=== PATIENT | female | born 1935 | race Caucasian/White ===

== ENCOUNTER → 2016-09-05 | Outpatient (CLI) | payer OTHER ==
[2016-09-05 12:36] LABS: HEMATOCRIT 41.1 % (37-47); MEAN CELL VOLUME 93.2 fL (80-100); MEAN CORPUSCULAR HEMOGLOBIN 31.5 pg (25-34); MEAN CORPUSCULAR HGB CONC 33.8 g/dl (32-36); MEAN PLATELET VOLUME 11.3 fL (7.4-10.4); PLATELET COUNT 219 K/uL (130-400); RED BLOOD COUNT 4.41 M/uL (4.2-5.4); WHITE BLOOD COUNT 5.03 K/uL (4.8-10.8)
[2016-09-05 12:46] LABS: ALT/SGPT 20 U/L (12-78); BLOOD UREA NITROGEN 15 mg/dl (7-18); BUN/CREATININE RATIO 20.3 (10-20); CALCIUM 9.3 mg/dl (8.5-10.1); CARBON DIOXIDE 25 mmol/L (21-32); CHLORIDE 107 mmol/L (98-107); CHOLESTEROL 192 mg/dl (0-200); CREATININE 0.74 mg/dl (0.60-1.20); GLUCOSE 126 mg/dl (70-99); SODIUM 144 mmol/L (136-145)
[2016-09-05 12:56] LABS: ALKALINE PHOSPHATASE 56 U/L (45-117); AST/SGOT 19 U/L (15-37); CHOLESTEROL/HDL RATIO 2.8; HDL CHOLESTEROL 69 mg/dl; LDL CHOLESTEROL CALCULATED 87 mg/dl; TRIGLYCERIDES 181 mg/dl (0-150); VERY LOW DENSITY LIPOPROT CALC 36 mg/dl
[2016-09-05 12:57] LABS: ESTIMATED AVERAGE GLUCOSE 151 mg/dl; HA1C FLAG Normal (Normal)
[2016-09-05 18:13] LABS: RATIO 56.6 mcg/mg (0-30.0)
== END | disposition home or self-care (01) ==
LOC: C.LABBFT 08:56
PROVIDERS: ATTEND Internal Medicine
DX: E11.29 Type 2 diabetes mellitus with other diabetic kidney complication (principal)

== ENCOUNTER → 2016-12-31 | Outpatient (CLI) | payer OTHER ==
--- NOTE | 2016-12-31 16:40 | MAMMOGRAPHY REPORT ---
BILATERAL DIGITAL SCREENING MAMMOGRAM WITH CAD: 12/31/2016 TECHNIQUE: Current study was also evaluated with a Computer Aided Detection (CAD) system. Bilateral CC and MLO views were obtained. COMPARISON: Comparison is made to exams dated: 12/31/2015 mammogram, 12/26/2013 mammogram, 12/23/2012 isaias mogram, 12/23/2011 mammogram, 12/19/2010 mammogram, and 12/27/2014 mammogram - [facility]. BREAST COMPOSITION: There are scattered areas of fibroglandular density in both breasts. FINDINGS: No suspicious masses, calcifications, or areas of architectural distortion are noted in ei ther breast. There has been no significant interval change compared to prior exams. Small nodular as ymmetry in the right superior breast on the MLO view is stable compared to prior exams including the December 2014 exam as well as the 2010 exam, and considered benign given long-term stability. IMPRESSION: ACR BI-RADS CATEGORY 2: BENIGN There is no mammographic evidence of malignancy. A 1 year screening mammogram is recommended. The pa tient will receive written notification of the results. Approximately 10% of breast cancers are not detected with mammography. A negative mammographic report should not delay biopsy if a clinically suggestive mass is present. Yuliana Tripathi M.D. /:12/31/2016 16:15:54 Pilot Plant Technician: Keely FAITH)(Kenneth), [facility] letter sent: Normal 1/2 BI-RADS Code: ACR BI-RADS Category 2: Benign
== END | disposition home or self-care (01) ==
LOC: C.MAMM 11:00
PROVIDERS: ATTEND Internal Medicine
DX: Z12.31 Encounter for screening mammogram for malignant neoplasm of breast (principal)

== ENCOUNTER → 2017-03-10 | Outpatient (CLI) | payer OTHER ==
[2017-03-10 12:53] LABS: ESTIMATED AVERAGE GLUCOSE 157 mg/dl; HA1C FLAG Normal (Normal)
[2017-03-10 12:54] LABS: ALKALINE PHOSPHATASE 51 U/L (45-117); ALT/SGPT 29 U/L (12-78); AST/SGOT 24 U/L (15-37); BLOOD UREA NITROGEN 22 mg/dl (7-18); CALCIUM 9.6 mg/dl (8.5-10.1); CARBON DIOXIDE 27 mmol/L (21-32); CHLORIDE 108 mmol/L (98-107); CREATININE 0.85 mg/dl (0.60-1.20); GLUCOSE 177 mg/dl (70-99); POTASSIUM 3.6 mmol/L (3.5-5.1); SODIUM 143 mmol/L (136-145)
== END | disposition home or self-care (01) ==
LOC: C.LABBFT 07:56
PROVIDERS: ATTEND Internal Medicine
DX: E11.9 Type 2 diabetes mellitus without complications (principal); I10 Essential (primary) hypertension; E78.00 Pure hypercholesterolemia, unspecified

== ENCOUNTER → 2017-09-07 | Outpatient (CLI) | payer OTHER ==
[2017-09-07 13:48] LABS: ALBUMIN 3.6 gm/dl (3.4-5.0); ALT/SGPT 21 U/L (12-78); AST/SGOT 15 U/L (15-37); BLOOD UREA NITROGEN 21 mg/dl (7-18); CALCIUM 9.4 mg/dl (8.5-10.1); CARBON DIOXIDE 27 mmol/L (21-32); CREATININE 0.83 mg/dl (0.60-1.20); GLUCOSE 166 mg/dl (70-99); POTASSIUM 3.6 mmol/L (3.5-5.1); SODIUM 142 mmol/L (136-145)
[2017-09-07 13:59] LABS: ALKALINE PHOSPHATASE 51 U/L (45-117); CHOLESTEROL 201 mg/dl (0-200); LDL CHOLESTEROL CALCULATED 103 mg/dl; TOTAL PROTEIN 7.6 gm/dl (6.4-8.2)
== END | disposition home or self-care (01) ==
LOC: C.LABBFT 08:53
PROVIDERS: ATTEND Internal Medicine
DX: E11.29 Type 2 diabetes mellitus with other diabetic kidney complication (principal)

== ENCOUNTER → 2018-03-03 | Outpatient (CLI) | payer OTHER ==
[2018-03-03 12:46] LABS: BASO % 0.2 %; BASO ABS # 0.01 K/uL (0-0.2); EOS ABS # 0.11 K/uL (0-0.5); HEMATOCRIT 43.3 % (37-47); HEMOGLOBIN 14.2 g/dL (12.0-16.0); IG# 0.01 K/uL (0.00-0.02); LYMPH % 39.7 %; LYMPH ABS # 2.14 K/uL (1.2-3.4); MEAN CELL VOLUME 96.7 fL (80-100); MEAN CORPUSCULAR HEMOGLOBIN 31.7 pg (25-34); MEAN CORPUSCULAR HGB CONC 32.8 g/dl (32-36); MEAN PLATELET VOLUME 11.5 fL (7.4-10.4); MONO % 6.9 %; MONO ABS # 0.37 K/uL (0.11-0.59); NEUT ABS # 2.75 K/uL (1.4-6.5); PLATELET COUNT 229 K/uL (130-400); RED CELL DISTRIBUTION WIDTH CV 12.5 % (11.5-14.5); RED CELL DISTRIBUTION WIDTH SD 43.7 fL (36.4-46.3); WHITE BLOOD COUNT 5.39 K/uL (4.8-10.8)
[2018-03-03 12:59] LABS: HEMOGLOBIN A1C 7.3 % (4.5-5.6)
[2018-03-03 13:21] LABS: ALBUMIN 3.6 gm/dl (3.4-5.0); ALKALINE PHOSPHATASE 49 U/L (45-117); ALT/SGPT 26 U/L (12-78); AST/SGOT 23 U/L (15-37); BLOOD UREA NITROGEN 21 mg/dl (7-18); CALCIUM 9.4 mg/dl (8.5-10.1); CARBON DIOXIDE 27 mmol/L (21-32); CHOLESTEROL 202 mg/dl (0-200); CREATININE 0.82 mg/dl (0.60-1.20); GLUCOSE 162 mg/dl (70-99); LDL CHOLESTEROL CALCULATED 102 mg/dl; POTASSIUM 3.9 mmol/L (3.5-5.1); SODIUM 140 mmol/L (136-145); TOTAL PROTEIN 7.6 gm/dl (6.4-8.2)
== END | disposition home or self-care (01) ==
LOC: C.LABBFT 09:00
PROVIDERS: ATTEND Internal Medicine
DX: E11.29 Type 2 diabetes mellitus with other diabetic kidney complication (principal)

== ENCOUNTER 2019-04-21 11:23 | Inpatient (IN) ==
[2019-04-21] MEDS ORDERED: FUROSEMIDE 40 MG/4 ML VIAL IV STA (12:01)
[2019-04-21 12:04] LABS: Basophils # (auto) 0.03 K/uL (0-0.2); Basophils % (auto) 0.4 %; Eosinophils # (auto) 0.06 K/uL (0-0.5); Eosinophils % (auto) 0.9 %; Hematocrit (blood only) 39.8 % (37-47); Immature Granulocytes # (auto) 0.01 K/uL (0.00-0.02); Immature Granulocytes % (auto) 0.1 %; Lymphocytes % (auto) 23.5 %; Mean Corpuscular Hemoglobin 31.7 pg (25-34); Mean Corpuscular Hgb Conc 32.7 g/dL (32-36); Mean Corpuscular Volume 97.1 fL (80-100); Mean Platelet Volume 11.2 fL (7.4-10.4); Monocytes # (auto) 0.41 K/uL (0.11-0.59); Neutrophils % (auto) 69.1 %; Platelet Count 236 K/uL (130-400); RDW Coefficient of Variation 12.6 % (11.5-14.5); RDW Standard Deviation 44.4 fL (36.4-46.3); White Blood Count 6.81 K/uL (4.8-10.8)
[2019-04-21 12:17] LABS: Alanine Aminotransferase 21 U/L (12-78); Albumin Level 4.1 gm/dl (3.4-5.0); Aspartate Aminotransferase 15 U/L (15-37); BUN Creatinine Ratio 23.9 (10-20); Blood Urea Nitrogen 23 mg/dl (7-18); Calcium 10.2 mg/dl (8.5-10.1); Carbon Dioxide 23 mmol/L (21-32); Chloride 107 mmol/L (98-107); Est GFR (African American) 64.3; Est GFR (Non-African American) 55.5; Glucose 138 mg/dl (70-99); Lipase 94 U/L (73-393); Potassium 3.9 mmol/L (3.5-5.1); Sodium 141 mmol/L (136-145)
[2019-04-21 12:18] LABS: Partial Thromboplastin Ratio 0.8; Prothrombin Time 10.3 Seconds (9.0-12.0)
--- NOTE | 2019-04-21 12:18 | XRay Report ---
XR chest 1V portable HISTORY: Atypical Chest Pain COMPARISON: Chest 03/23/2019. FINDINGS: There are low lung volumes. The heart remains enlarged. There is a moderate to large hiatus hernia, unchanged. Interval progression of the interstitial and vascular thickening as well as the s mall bilateral pleural effusions. This likely represents pulmonary edema. Left basilar linear densiti es persist and favor atelectasis. IMPRESSION: Interval progression of the pulmonary edema and small bilateral pleural effusions. Electronically signed by: Bashir Wilburn M.D. 04/21/2019 12:16 PM
[2019-04-21] MEDS ORDERED: Heparin IV Standard *NO* Bolus IV ONE (12:20)
[2019-04-21 12:22] LABS: Albumin Globulin Ratio 1.1 (0.9-2); Alkaline Phosphatase 53 U/L (45-117); Bilirubin,Total 0.7 mg/dl (0.2-1); Creatine Kinase 78 U/L (26-192); Creatine Kinase MB 2.1 ng/ml (0.5-3.6); Globulin 3.8 gm/dl (2.5-4.0); NT Pro B Type Natriuretic Pept 4698 pg/ml (0-1800); Total Protein 7.9 gm/dl (6.4-8.2); Troponin I < 0.015 ng/ml (0-0.045)
[2019-04-21] MEDS ORDERED: HEPARIN SODIUM/DEXTROSE 25,000 UNITS/500 ML BAG IV SCH (12:30)
--- NOTE | 2019-04-21 13:52 | History & Physical Report ---
Date of Service April 21, 2019 Assessment & Plan (1) Left ventricular thrombus: Patient has left ventricular thrombus found on the echocardiogram with Dr. Ross geography professor.Prelim echo findings remarkable for global LV dysfunction, EF 20 to 25%, apical LV thrombus, mild to moderate MR, mild RV dysfunction. Per his recommendation patient is admitted to inpatient for anticoagulation and the urinalysis. Heparin bolus and drip were started in the emergency room. Switching patient to Xarelto 15 mg p.o. twice daily for 21 days and then continue 20 mg p.o. daily Repeat TTE in 3 months Follow-up with Dr. Ross Started Lasix 40 mg IV twice daily Monitor closely electrolytes such as BMP We will check for Lyme, TSH and iron studies Potassium started 40 mEq p.o. daily titrate up as needed. Present on Admission?: Yes (2) Acute exacerbation of congestive heart failure: Monitor daily in and out Daily weight Letter closely electrolytes and blood pressure. Present on Admission?: Yes (3) Pulmonary edema: See above Present on Admission?: Yes (4) Diabetes mellitus type 2, uncontrolled: Hold metformin while patient hospitalized to prevent acute kidney injury due to possible medical procedures and hypoglycemia. Rather use sliding scale insulin Accu-Cheks before meals and at bedtime. Glycemia controlled by pharmacy. Present on Admission?: Yes (5) Hypercholesterolemia: Lipid panel pending, continue lovastatin 20 mg p.o. daily for now until fasting lipid panel results available. Present on Admission?: Yes (6) Hypertension: Continue monitoring, patient blood pressure is well controlled at this time Present on Admission?: Yes (7) Thrush of mouth and esophagus: Started nystatin swish and spit 4 times a day. Patient advised to use soft brush to clean her tongue after each meal. Patient also appears to be malnourished which is contributing to her immunocompromised state. Patient said that she was on antibiotics antibiotics for several months which could also be contributory factor. Nutrition consult placed for assessment of nutrition. Present on Admission?: Yes (8) Diarrhea: Patient reports several bowel movements last night which were yellow in color and very lose. Given only 40 mg of Lasix IV today since patient had some losses due to diarrhea. Continue monitoring patient hydration while on Lasix to prevent hypotension and dehydration. Stool cultures pending for C. difficile, ova parasites. Present on Admission?: Yes History of Present Illness Chief Complaint: Pulmonary edema, generalized malaise and left ventricular thrombus Primary Care Provider: Nixon Ordoñez MD Patient is a 83 years old female with past medical history of hypertension, hypercholesterolemia, type 2 diabetes mellitus, panic disorder without agoraphobia, esophageal reflux, who was sent to the emergency room by Dr. Conner Ross geography professor with a request to evaluate the patient for with newly diagnosed severe LVH dysfunction and acute systolic heart failure. Presently patient has left ventricle thrombus, pulmonary edema and to start Lasix 40 mg IV twice daily,, metoprolol XL 25 mg daily, lisinopril 5 mg daily, started heparin drip in the emergency room and will bridge to Xarelto for LV thrombus with a plan to repeat echocardiogram in 3 months. Patient will eventually need left and right heart catheterization to rule out ischemia because of cardiomyopathy but also could be done once when patient is euvolemic at this hospitalization. We will check a BMP, thyroid, Lyme and iron studies. Appreciate Dr. Ross's recommendations patient reports and why NYHA class III and IV symptoms such as dyspnea presyncope with minimal exertion. Labs are reviewed: Which shows WBC 6.81, hemoglobin 13, hematocrit 39.8, platelets 236, PT 10.3, INR 1, APTT 23, sodium 141, potassium 3.9, chloride 107, BUN 23, creatinine 0.96, GFR 55.5,Calcium 10.2, AST 15, ALT 21, BNP 4698. Chest x-ray significant for pulmonary edema with small bilateral pleural effusions. Was made to admit patient to PCU on telemetry to for the urinalysis for pulmonary edema and for anticoagulation. Allergies Allergy/AdvReac Type Severity Reaction Status Date / Time Azo-Gantrisin TABS Allergy Unknown Unknown Uncoded 04/21/19 12:58 Dust Mite Allergy Unknown Unknown Uncoded 04/21/19 12:58 Statins Allergy Unknown Unknown Uncoded 04/21/19 12:58 Sulfa Drugs Allergy Unknown Unknown Uncoded 04/21/19 12:58 Home Medications Home Medications Medication Instructions Recorded Confirmed Type lovastatin 20 mg PO DAILY 04/21/19 04/21/19 History metformin 1,000 mg PO QPM 04/21/19 04/21/19 History metformin 500 mg PO QAM 04/21/19 04/21/19 History potassium chloride 10 meq PO BID 04/21/19 04/21/19 History triamterene-hydrochlorothiazid 1 cap PO DAILY 04/21/19 04/21/19 History Past Med/Surg History Medical History Anxiety (Acute) Arthralgia of multiple sites (Acute) Chronic sinusitis (Acute) Diabetes mellitus type 2, uncontrolled (Acute) Diabetes mellitus with albuminuria (Acute) Esophageal reflux (Acute) Hematuria (Acute) Hypercholesterolemia (Acute) Hypertension (Acute) Low back pain (Acute) Microalbuminuria (Acute) Onychomycosis of toenail (Acute) Pain in thoracic spine (Acute) Panic disorder without agoraphobia (Acute) Cough (Acute) Hypertension (Chronic) Hypercholesteremia (Chronic) 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) Family History Other Family history non-contributory Social History Preferred Language: Serbian Communication Ability: Effective Nightman Required: No Beliefs That Will Affect Care: Adventism Adventism Beliefs: Restorationist Current Living Situation: Alone Other Information That Helps Us Care for You: No Feels Safe at Home: Yes Safety Concerns: Feels Safe At This Time Smoking Status: Never smoker Hx Alcohol Use: No Hx Substance Use: No Review of Systems Review of Systems: All systems reviewed & are unremarkable except as noted in HPI & below Physical Exam Constitutional: WD/WN, vitals as above + ill appearing and + frail appearing Eyes: PERRL, conjunctivae normal, anicteric sclerae ENMT: external ear and nose normal, oropharynx normal Neck: trachea midline, no thyromegaly Respiratory: normal respiratory effort, lungs clear to auscultation Cardiovascular: RRR, no murmur, no edema Gastrointestinal (Abdomen): normal bowel sounds, soft, nontender, no hepatosplenomegaly Musculoskeletal: no cyanosis or clubbing, extremities motor strength 5/5 Skin: no rashes, warm and dry Neurologic: patellar DTR's 2+ bilat, sensation intact Lymphatic: no cervical or axillary lymphadenopathy Results & Data Vital Signs (Past 12 Hours) Vital Signs Temp Pulse Pulse Resp BP BP Pulse Ox 04/21/19 12:08 105 H 16 122/88 93 04/21/19 12:01 92 04/21/19 11:31 36.7 C 89 22 128/70 97 Code Status & VTE Plan Code Status Full code VTE Prophylaxis Plan VTE Prophylaxis will be ordered: Yes PG Care Time/CCT Total # of Minutes Spent Total Time Spent with Patient: Total time spent is greater than 50% in coordination of care (as documented) at patient's floor/unit and/or counseling patient:
[2019-04-21] MEDS ORDERED: ONDANSETRON INJ 2 MG/ML 2 ML VIAL IV PRN (15:13)
[2019-04-21] MEDS ORDERED: ZOLPIDEM TARTRATE 5 MG TAB PO PRN (15:13)
[2019-04-21] MEDS ORDERED: POLYETHYLENE (MIRALAX) 17 GM PACK PO PRN (15:13)
[2019-04-21] MEDS ORDERED: ALUMINUM/MAGNESIUM SUSP 30 ML UDC PO PRN (15:13)
[2019-04-21] MEDS ORDERED: MAGNESIUM HYDROXIDE SUSP 30 ML UDC PO PRN (15:13)
[2019-04-21] MEDS ORDERED: ACETAMINOPHEN 325 MG TAB PO PRN (15:13)
[2019-04-21] MEDS ORDERED: PHARMACY GLYCEMIC MGMT CONSULT PRN (15:32)
[2019-04-21] MEDS ORDERED: DEXTROSE 50% 50 ML SYRINGE IV PRN (16:00)
[2019-04-21] MEDS ORDERED: GLUCOSE 10 TABS/TUBE PO PRN (16:00)
[2019-04-21] MEDS ORDERED: GLUCOSE 40% GEL 15 GM TUBE PO PRN (16:00)
[2019-04-21] MEDS ORDERED: GLUCAGON FOR INJ 1 MG VIAL SQ PRN (16:00)
[2019-04-21] MEDS ORDERED: CARBOHYDRATES FOR HYPOGLYCEMIA PO PRN (16:00)
[2019-04-21 16:02] LABS: BUN Creatinine Ratio 23.7 (10-20); Calcium 10.1 mg/dl (8.5-10.1); Creatinine Clr Calc Pharmacy 45.2 ml/min; Est GFR (African American) 67.7; Est GFR (Non-African American) 58.4; Potassium 3.7 mmol/L (3.5-5.1)
[2019-04-21 16:13] LABS: Thyroid Stimulating Hormone 2.64 uIu/ml (0.300-4.500)
[2019-04-21] MEDS: RIVAROXABAN 15 MG TAB PO SCH (16:14)
[2019-04-21] MEDS: lisinopriL 5 MG TAB PO SCH (16:15)
[2019-04-21] MEDS: NYSTATIN SUSP 500,000 U/5 ML UDC PO SCH ×2 (16:16→20:17)
[2019-04-21] MEDS: FUROSEMIDE 40 MG in SYRINGE 0 ML IV SCH (16:16)
[2019-04-21] MEDS: METOPROLOL SUCC 25MG EXT REL TAB PO SCH (16:16)
[2019-04-21 17:07] LABS: Lyme Ab IgG w/WB Rflx Negative (Negative); Lyme Ab IgM w/WB Rflx Negative (Negative)
[2019-04-21] MEDS: INSULIN ASPART 100 UNITS/ML 3 ML PEN SC SCH ×2 (17:32→21:09)
[2019-04-21] MEDS ORDERED: OXYCODONE/ACETAMINOPHEN 5mg/325mg TAB PO PRN (17:33)
[2019-04-21] MEDS ORDERED: INFLUENZA ADMINISTRATION CHARGE ONE (18:15)
[2019-04-21] MEDS ORDERED: INFLUENZA VACCINE HIGH DOSE 65+ 0.5 ML SYR IM ONE (18:15)
[2019-04-22] MEDS: RIVAROXABAN 15 MG TAB PO SCH ×2 (05:54→21:28)
[2019-04-22 07:20] LABS: Basophils # (auto) 0.02 K/uL (0-0.2); Basophils % (auto) 0.3 %; Eosinophils # (auto) 0.18 K/uL (0-0.5); Eosinophils % (auto) 3.1 %; Hematocrit (blood only) 36.3 % (37-47); Hemoglobin 11.8 g/dL (12.0-16.0); Lymphocytes # (auto) 1.32 K/uL (1.2-3.4); Lymphocytes % (auto) 22.5 %; Mean Corpuscular Hemoglobin 31.2 pg (25-34); Mean Corpuscular Hgb Conc 32.5 g/dL (32-36); Mean Platelet Volume 11.1 fL (7.4-10.4); Monocytes # (auto) 0.52 K/uL (0.11-0.59); Monocytes % (auto) 8.9 %; Neutrophils # (auto) 3.83 K/uL (1.4-6.5); Neutrophils % (auto) 65.2 %; Platelet Count 210 K/uL (130-400); RDW Coefficient of Variation 12.6 % (11.5-14.5); Red Blood Count 3.78 M/uL (4.2-5.4); Reticulocyte % 1.5 % (0.5-2.0); Reticulocytes # 0.06 10^6/uL (0.02-0.10); White Blood Count 5.87 K/uL (4.8-10.8)
[2019-04-22 07:30] LABS: INR 1.2 (0.9-1.1); Partial Thromboplastin Time 26.9 Seconds (21.0-31.0); Prothrombin Time 11.9 Seconds (9.0-12.0)
[2019-04-22 07:46] LABS: Albumin Globulin Ratio 1.1 (0.9-2); Albumin Level 3.6 gm/dl (3.4-5.0); BUN Creatinine Ratio 21.7 (10-20); Calcium 9.6 mg/dl (8.5-10.1); Creatinine Clr Calc Pharmacy 36.7 ml/min; Est GFR (African American) 53.4; Globulin 3.2 gm/dl (2.5-4.0); Potassium 3.3 mmol/L (3.5-5.1); Total Protein 6.8 gm/dl (6.4-8.2)
[2019-04-22 07:48] LABS: Bilirubin,Total 1.1 mg/dl (0.2-1); Ferritin 41.2 ng/ml (8-388)
[2019-04-22 08:00] LABS: Folate (Folic Acid) 18.34 ng/ml (>5.38)
[2019-04-22] MEDS ORDERED: POTASSIUM CHLORIDE 20 MEQ TABCR PO STA (08:00)
[2019-04-22] MEDS: lisinopriL 5 MG TAB PO SCH (08:33)
[2019-04-22] MEDS: NYSTATIN SUSP 500,000 U/5 ML UDC PO SCH ×4 (08:34→21:28)
[2019-04-22] MEDS: FUROSEMIDE 40 MG in SYRINGE 0 ML IV SCH (08:34)
[2019-04-22] MEDS: LOVASTATIN 20 MG TAB PO SCH (08:34)
[2019-04-22] MEDS: METOPROLOL SUCC 25MG EXT REL TAB PO SCH (08:34)
[2019-04-22] MEDS: INSULIN ASPART 100 UNITS/ML 3 ML PEN SC SCH ×4 (08:37→21:37)
[2019-04-22] MEDS: POTASSIUM CHLORIDE 20 MEQ TABCR PO SCH (08:38)
[2019-04-22] MEDS ORDERED: METFORMIN HCL 500 MG TAB PO SCH (09:00)
--- NOTE | 2019-04-22 09:38 | Emergency Department Note ---
Entered by Oscar Garcia acting as a scribe for History of Present Illness General Chief complaint: Referred by Doctor Stated complaint: HEART ISSUES Time Seen by Provider: 04/21/19 11:52 Source: patient History of Present Illness Provider complaint: Shortness of breath Onset (ago): week(s) 2 Location: chest Radiation: non-radiation Pain Consistency: + constant and + other (Worsening) Relieved By: + none Exacerbated By: + other (Lying down) Associated symptoms: + denies other symptoms (Abdominal pain), + cough and + shortness of breath; no chest pain The patient is an 83 year old female who presents to the Emergency Room with complaints of constant shortness of breath that has been an ongoing issue for months but became acute worse in the past 2 weeks. The patient states that today she was at an appointment to have an echo done due to her symptoms but while she was there her condition warranted a referral to the ED to be hospitalized. The patient states that a few weeks ago she was diagnosed with pneumonia and was treated with antibiotics. The patient responded well to the medication, however 2 weeks ago she developed a dry cough that has been constant since. The patient adds that the cough is worse when she is lying flat and nothing seems to help make it better. The patient currently denies any chest pain or abdominal pain. Home Medications Home Medications Medication Instructions Recorded Confirmed Type lovastatin 20 mg PO DAILY 04/21/19 04/21/19 History metformin 1,000 mg PO QPM 04/21/19 04/21/19 History metformin 500 mg PO QAM 04/21/19 04/21/19 History potassium chloride 10 meq PO BID 04/21/19 04/21/19 History triamterene-hydrochlorothiazid 1 cap PO DAILY 04/21/19 04/21/19 History Allergies Allergy/AdvReac Type Severity Reaction Status Date / Time Azo-Gantrisin TABS Allergy Unknown Unknown Uncoded 04/21/19 12:58 Dust Mite Allergy Unknown Unknown Uncoded 04/21/19 12:58 Statins Allergy Unknown Unknown Uncoded 04/21/19 12:58 Sulfa Drugs Allergy Unknown Unknown Uncoded 04/21/19 12:58 Past Med/Surg History Medical History Anxiety (Acute) Arthralgia of multiple sites (Acute) Chronic sinusitis (Acute) Diabetes mellitus type 2, uncontrolled (Acute) Diabetes mellitus with albuminuria (Acute) Esophageal reflux (Acute) Hematuria (Acute) Hypercholesterolemia (Acute) Hypertension (Acute) Low back pain (Acute) Microalbuminuria (Acute) Onychomycosis of toenail (Acute) Pain in thoracic spine (Acute) Panic disorder without agoraphobia (Acute) Cough (Acute) Hypertension (Chronic) Hypercholesteremia (Chronic) 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 and A total of 10 systems reviewed and were otherwise negative Physical Exam Vital Signs Vital Signs - 24 hr 04/21/19 11:53 04/21/19 12:01 04/21/19 12:08 Pulse Rate [Apical] 105 H Respiratory Rate 16 Blood Pressure [Left Arm] 122/88 Blood Pressure Mean [Left Arm] 99 Pulse Oximetry 93 92 93 Oxygen Delivery Method Room Air Room Air Room Air GENERAL: Awake, alert, well-appearing, in no distress HENT: Normocephalic, atraumatic. Oropharynx unremarkable. EYES: Normal conjunctiva. Sclera non-icteric. NECK: Supple. No nuchal rigidity. FROM. No masses. RESPIRATORY: Clear to auscultation. No wheezes. No rales. Normal respiratory effort. CARDIAC: Normal rate. Normal rhythm. No murmurs. No rubs. Extremities warm and well perfused. Pulses equal. No JVD. GI: Soft, non-distended. No tenderness to palpation. No rebound or guarding. No masses. RECTAL: Deferred. MUSCULOSKELETAL: Atraumatic. Chest examination reveals no tenderness. The back is symmetrical on inspection without obvious abnormality. There is no CVA tenderness to palpation. No joint edema. LOWER EXTREMITIES: Calves are equal size bilaterally and non-tender. No edema. No discoloration. NEURO: Normal sensorium. No sensory or motor deficits noted. Course 1156: Past medical records reviewed. The patient was evaluated in room B03B, and a complete history and physical examination were performed. We discussed the treatment plan and she agreed to hospitalization for further work up. 1217: I spoke to Dr. Akash Araujo [facility] Hospitalist about the patient's case. She is going to accept the patient for further evaluation. Consultations Consultation #1: I spoke to Dr. Akash Araujo [facility] Hospitalist about the patient's case. She is going to accept the patient for further evaluation. Time: 12:17 Administered Medications Furosemide 40 mg/ Syringe 4 mls @ 4 mls/min IV [id number] ANUM Stop: 05/21/19 16:59 Last Admin: 04/22/19 08:34 Dose: 4 mls/min Documented by: [id number] Admin: 04/21/19 16:16 Dose: 4 mls/min Documented by: [id number] Insulin Aspart (Novolog Flexpen) 0 units SC ACHS ANUM Stop: 05/21/19 16:29 Last Admin: 04/22/19 08:37 Dose: 2 units Documented by: [id number] Cosigned by: [id number] Admin: 04/21/19 21:09 Dose: Not Given Documented by: [id number] Cosigned by: [id number] Admin: 04/21/19 17:32 Dose: 4 units Documented by: [id number] Cosigned by: [id number] Lisinopril (Zestril) 5 mg PO QAM ANUM Stop: 05/21/19 15:12 Last Admin: 04/22/19 08:33 Dose: 5 mg Documented by: [id number] Admin: 04/21/19 16:15 Dose: 5 mg Documented by: [id number] Lovastatin (Mevacor) 20 mg PO DAILY ANUM Stop: 05/22/19 08:59 Last Admin: 04/22/19 08:34 Dose: 20 mg Documented by: [id number] Metoprolol Succinate (Toprol Xl) 25 mg PO QAM ANUM Stop: 05/21/19 15:12 Last Admin: 04/22/19 08:34 Dose: Not Given Documented by: [id number] Admin: 04/21/19 16:16 Dose: 25 mg Documented by: [id number] Nystatin (Mycostatin) 5 ml PO QID ANUM Stop: 05/21/19 16:59 Last Admin: 04/22/19 08:34 Dose: 5 ml Documented by: [id number] Admin: 04/21/19 20:17 Dose: 5 ml Documented by: [id number] Admin: 04/21/19 16:16 Dose: 5 ml Documented by: [id number] Potassium Chloride (Klor-Con M20) 40 meq PO QAM ANUM Stop: 05/22/19 08:59 Last Admin: 04/22/19 08:38 Dose: Not Given Documented by: [id number] Rivaroxaban (Xarelto) 15 mg PO BID ANUM Stop: 05/21/19 15:59 Last Admin: 04/22/19 05:54 Dose: 15 mg Documented by: [id number] Admin: 04/21/19 16:14 Dose: 15 mg Documented by: [id number] Discontinued Medications Furosemide (Lasix) 40 mg IV NOW STA Stop: 04/21/19 12:02 Last Admin: 04/21/19 12:09 Dose: 40 mg Documented by: [id number] Heparin Sodium/Dextrose () 1 ea IV ONE ONE; Protocol Stop: 04/21/19 12:21 Last Admin: 04/21/19 13:27 Dose: Not Given Documented by: [id number] Heparin Sodium/Dextrose (Heparin Sodium/Dextrose) 25,000 units in 500 mls @ 22 mls/hr IV .[id number] ANUM; Protocol Stop: 05/21/19 12:29 Last Titration: 04/21/19 16:09 Dose: 0 units/hr, 0 mls/hr Documented by: [id number] Cosigned by: [id number] Admin: 04/21/19 12:49 Dose: 1,100 units/hr, 22 mls/hr Documented by: [id number] Cosigned by: [id number] Potassium Chloride (Klor-Con M20) 40 meq PO NOW STA Stop: 04/22/19 08:01 Last Admin: 04/22/19 08:33 Dose: 40 meq Documented by: [id number] Medical Decision Making Differential Diagnosis Differential diagnoses includes but is not limited to pneumonia, bronchitis, COPD/Asthma exacerbation, pneumothorax, pulmonary embolism, congestive heart failure, acute coronary syndrome, amongst others. This is a 83-year-old female who presents emergency department with shortness of breath. The patient was sent in by her family member caretaker over concerns that she has new onset congestive heart failure. She has an EF of 20 to 25%. She was given Lasix here in the emergency department. She was also discussed with the hospitalist service who agreed to admit the patient. Due to the thrombus in the LV the patient was also started on a heparin drip. Patient and family were in agreement with the treatment plan. Medical Records Attestation: I reviewed the patient's medical records. Home Medications Current Medication List: was personally reviewed by me Laboratory Data Attestation: I reviewed the patient's lab results. Result diagrams: 04/22/19 07:00 04/22/19 07:00 Lab Results 04/21/19 04/21/19 04/21/19 Range/Units 11:45 11:45 11:45 WBC 6.81 (4.8-10.8) K/uL RBC 4.10 L (4.2-5.4) M/uL Hgb 13.0 (12.0-16.0) g/dL Hct 39.8 (37-47) % MCV 97.1 (80-100) fL MCH 31.7 (25-34) pg MCHC 32.7 (32-36) g/dL RDW Std Deviation 44.4 (36.4-46.3) fL RDW Coeff of Shaka 12.6 (11.5-14.5) % Plt Count 236 (130-400) K/uL MPV 11.2 H (7.4-10.4) fL Immature Gran % (Auto) 0.1 % Neut % (Auto) 69.1 % Lymph % (Auto) 23.5 % White % (Auto) 6.0 % Eos % (Auto) 0.9 % Baso % (Auto) 0.4 % Immature Gran # (Auto) 0.01 (0.00-0.02) K/uL Neut # (Auto) 4.70 (1.4-6.5) K/uL Lymph # (Auto) 1.60 (1.2-3.4) K/uL White # (Auto) 0.41 (0.11-0.59) K/uL Eos # (Auto) 0.06 (0-0.5) K/uL Baso # (Auto) 0.03 (0-0.2) K/uL PT 10.3 (9.0-12.0) Seconds INR 1.0 (0.9-1.1) APTT 23.0 (21.0-31.0) Seconds PTT Ratio 0.8 Sodium 141 (136-145) mmol/L Potassium 3.9 (3.5-5.1) mmol/L Chloride 107 (98-107) mmol/L Carbon Dioxide 23 (21-32) mmol/L Anion Gap 10.0 (3-11) BUN 23 H (7-18) mg/dl Creatinine 0.96 (0.6-1.2) mg/dl Est Cr Clr Drug Dosing Not Reportable Est GFR ( Amer) 64.3 Est GFR (Non-Af Amer) 55.5 BUN/Creatinine Ratio 23.9 H (10-20) Glucose 138 H (70-99) mg/dl Calcium 10.2 H (8.5-10.1) mg/dl Total Bilirubin 0.7 (0.2-1) mg/dl AST 15 (15-37) U/L ALT 21 (12-78) U/L Alkaline Phosphatase 53 (45-117) U/L Total Creatine Kinase 78 (26-192) U/L CK-MB (CK-2) 2.1 (0.5-3.6) ng/ml CK/CKMB % Calc 2.7 (0-3.0) Troponin I < 0.015 (0-0.045) ng/ml NT-Pro-B Natriuret Pep 4698 H (0-1800) pg/ml Total Protein 7.9 (6.4-8.2) gm/dl Albumin 4.1 (3.4-5.0) gm/dl Globulin 3.8 (2.5-4.0) gm/dl Albumin/Globulin Ratio 1.1 (0.9-2) Lipase 94 (73-393) U/L Imaging Data Radiologist's Impression: Radiology results as stated below per my review and the radiologist's interpretation: XR chest 1V portable HISTORY: Atypical Chest Pain COMPARISON: Chest 03/23/2019. FINDINGS: There are low lung volumes. The heart remains enlarged. There is a moderate to large hiatus hernia, unchanged. Interval progression of the interstitial and vascular thickening as well as the small bilateral pleural effusions. This likely represents pulmonary edema. Left basilar linear densities persist and favor atelectasis. IMPRESSION: Interval progression of the pulmonary edema and small bilateral pleural effusions. Electronically signed by: Bashir Wilburn M.D. 04/21/2019 12:16 PM ECG Data Attestation: I personally reviewed and interpreted this ECG as follows: Indication: SOB/dyspnea Rate (beats per minute): 108 Rhythm: sinus tachycardia Findings: + LBBB; no ST depression and no ST elevation Comparison ECG Date: no prior available Blood Pressure Blood Pressure Findings: Elevated blood pressure Blood Pressure Disposition: further management by hospitalist MDM Narrative This is a 83-year-old female who presents emergency department with shortness of breath. The patient was sent in by her family member caretaker over concerns that she has new onset congestive heart failure. She has an EF of 20 to 25%. She was given Lasix here in the emergency department. She was also discussed with the hospitalist service who agreed to admit the patient. Due to the thrombus in the LV the patient was also started on a heparin drip. Patient and family were in agreement with the treatment plan. Impression & Plan Left ventricular thrombus, Acute exacerbation of congestive heart failure Critical Care Time I have personally spent greater than 30 minutes of critical care time in the direct management of this patient. This includes bedside care, interpretation of diagnostic studies, and testing, discussion with consultants, patient, and family members, and other required patient management activities. This 30 minutes is in excess of all separately billable procedures. Discharge Plan Visit Data *Final* Discharge Date/Time: 04/21/19 14:13 Chief Complaint: Referred by Doctor Stated Complaint: HEART ISSUES ED Provider: Jude Youngblood Discharge Problem: Left ventricular thrombus, Acute exacerbation of congestive heart failure Patient Disposition: Admitted As Inpatient Discharge Instructions Interventions: ED Discharge Assessment Last Done: 04/21/19 14:13 Discharge Problem: Acute exacerbation of congestive heart failure Qualifiers: Heart failure type: unspecified Qualified Code(s): I50.9 - Heart failure, unspecified The scribe's documentation has been prepared under my direction and personally reviewed by me in its entirety. I confirm that the note above accurately reflects all work, treatment, procedures, and medical decision making performed by me.
[2019-04-22 09:58] LABS: Estimated Average Glucose 146 mg/dl; Hemoglobin A1C 6.7 % (4.5-5.6)
--- NOTE | 2019-04-22 14:34 | Pharmacy Report ---
Pharmacy Glycemic Sign Off Nt - Date of Service April 22, 2019 - Assessment & Plan ASSESSMENT: * Pharmacy was consulted by Dr Bustos on 04/21 for glycemic control and to write orders per [facility] inpatient glycemic control protocol. * Major changes made by pharmacy to antidiabetic regimen include: * Metformin placed on hold and Novolog with CF 30, CR 12 initiated * Patient has been receiving/requiring 6 units of insulin per day for adequate glycemic control * BSGs ranging 120-150 mg/dl * Regimen has only required minor adjustments over the past 48hrs to achieve this level of control * Do not anticipate further changes in patient status that would quickly deteriorate glycemic control (i.e. patient to be NPO for upcoming procedure, steroids tapering, starting tube feedings, etc). * Please see recommendations for outpatient antidiabetic regimen below. PLAN FOR INPATIENT GLYCEMIC CONTROL: No changes needed to current regimen. * Continue NovoLog per scale ACHS/Q6hrs while NPO * Goal range = 110- 140 mg/dl * CF = 30 mg/dl/unit * CR = 1 unit for ever 12 g CHO consumed * A1c added to discharge instructions to be communicated to PCP. * Pharmacy is signing off of glycemic consult and will no longer be making adjustments to inpatient regimen. Please feel free to re-consult if needed. Thank you. DISCHARGE RECOMMENDATIONS: * A1c 6.6 % on 03/09/19, which is below goal for patient's age/comorbidities * Continue metformin on discharge
--- NOTE | 2019-04-22 16:18 | Hospitalist Progress Note ---
Date of Service April 22, 2019 Assessment & Plan (1) Left ventricular thrombus: Patient has left ventricular thrombus found on the echocardiogram with Dr. Ross quarter backer. Continue Xarelto 15 mg p.o. twice daily for 21 days and then continue 20 mg p.o. daily Repeat TTE in 3 months Follow-up with Dr. Ross Lyme negative, TSH wnl (2) Acute exacerbation of congestive heart failure: Echo findings remarkable for global LV dysfunction, EF 20 to 25%, apical LV thrombus, mild to moderate MR, mild RV dysfunction. Will decrease IV lasix to 40 mg daily from BID as blood pressures are running slightly hypotensive Monitor daily in and out Daily weight (3) Pulmonary edema: See above No longer requiring supplemental O2 (4) Diabetes mellitus type 2, uncontrolled: Hold home metformin BSGs ac & hs, ss (5) Hypercholesterolemia: Lipid panel wnl, continue lovastatin 20 mg p.o. daily (6) Hypertension: Continue monitoring, patient blood pressure somewhat hypotensive (7) Thrush of mouth and esophagus: Continue nystatin 4 times a day. Patient advised to use soft brush to clean her tongue after each meal. Patient also appears to be malnourished which is contributing to her immunocompromised state. Patient said that she was on antibiotics antibiotics for several months which could also be contributory factor. Nutrition consult placed for assessment of nutrition. (8) Diarrhea: Patient reports several bowel movements last night which were yellow in color and very lose. Stool cultures pending for C. difficile, ova parasites. (9) DVT prophylaxis: Rivaroxaban Subjective Ms. Del Angel feels she is breathing better today. Her daughter is bedside. Her thrush is not bothering her much. SR on the monitor Review of Systems Review of Systems: All systems reviewed & are unremarkable except as noted in HPI & below Physical Exam Physical Exam: General: no distress Eyes: normal inspection, PERLL Respiratory: chest non tender, clear to auscultation, normal breath sounds, no respiratory distress, no accessory muscle use Cardiac: regular rate and rhythm, no rub or gallop, no murmur, no edema, no jvd GI/: active bowel sounds, no abd pain or tenderness, soft, non distended Extremities: normal range of motion, normal strength, non tender Neuro/Psych: alert and oriented x 3, normal mood and affect Skin: normal color, dry Results & Data Vital Signs (Past 12 Hours) Vital Signs Temp Pulse Pulse Resp BP Pulse Ox 04/22/19 15:18 36.8 C 78 18 91/61 L 95 04/22/19 11:15 36.8 C 86 16 96/55 L 93 04/22/19 09:07 74 04/22/19 07:00 36.5 C 81 16 95/55 L 92 04/22/19 04:33 36.4 C L 78 17 88/58 L 95 PG Care Time/CCT Total # of Minutes Spent Total Time Spent with Patient: Total time spent is greater than 50% in c oordination of care (as documented) at patient's floor/unit and/or counseling patient: (1) Acute exacerbation of congestive heart failure Heart failure type: unspecified Qualified Code(s): I50.9 - Heart failure, unspecified
--- NOTE | 2019-04-22 17:04 | Cardiology Progress Note ---
Date of Service April 22, 2019 Assessment & Plan (1) Acute exacerbation of congestive heart failure: 2. Severe LV dysfunctionEF 20 to 25% 3. Apical LV thrombus 4. Left bundle branch block 5. Type 2 diabetes 6. Hypertension 7. Dyslipidemia Good urine output yesterday, negative more than later. Renal function stable. Still with NYHA class III dyspnea. Well-perfused on exam with residual pulmonary congestion Borderline hypotension but asymptomatic Continue IV diuresis today with Lasix 40 mg twice daily. Supplement electrolytes Continue current Toprol-XL, lisinoprilcan reduce lisinopril dose tomorrow if BPs remain low Continue anticoagulation with Xarelto Plan for cardiac catheterization on Thursday if still hospitalized. Subjective Breathing modestly improved. Denies any chest pain. Denies any palpitations. Some difficulty sleeping. Telemetry reviewedno events Negative more than a liter overnight, down 4 pounds. Review of Systems Review of Systems: All systems reviewed & are unremarkable except as noted in HPI & below Physical Exam Physical Exam: General: Comfortable, no acute distress HEENT: Sclerae anicteric, mucous membranes moist Lungs: Decreased breath sounds at bases. Crackles improved. Cardiac: Regular rate and rhythm, no murmurs, JVP approximately 7-8 Abdomen: Soft, nontender, nondistended, positive bowel sounds. Extremities: Warm, well perfused, no significant edema Skin: No rashes or lesions. Neuro: Nonfocal Psych: Alert orient x3, normal affect and mood Results & Data Vital Signs (Past 12 Hours) Vital Signs Temp Pulse Pulse Resp BP Pulse Ox 04/22/19 09:07 74 04/22/19 07:00 97.7 F 81 16 95/55 L 92 04/22/19 04:33 97.5 F L 78 17 88/58 L 95 04/21/19 23:54 98.4 F 84 20 98/59 L 92 PG Care Time/CCT Total # of Minutes Spent Total Time Spent with Patient: Total time spent is greater than 50% in coordination of care (as documented) at patient's floor/unit and/or counseling patient: (1) Acute exacerbation of congestive heart failure Heart failure type: unspecified Qualified Code(s): I50.9 - Heart failure, unspecified
[2019-04-23 05:56] LABS: Basophils # (auto) 0.01 K/uL (0-0.2); Basophils % (auto) 0.2 %; Eosinophils # (auto) 0.25 K/uL (0-0.5); Eosinophils % (auto) 4.2 %; Hematocrit (blood only) 39.3 % (37-47); Hemoglobin 12.7 g/dL (12.0-16.0); Immature Granulocytes # (auto) 0.01 K/uL (0.00-0.02); Immature Granulocytes % (auto) 0.2 %; Lymphocytes # (auto) 2.04 K/uL (1.2-3.4); Lymphocytes % (auto) 34.6 %; Mean Corpuscular Hemoglobin 31.2 pg (25-34); Mean Corpuscular Hgb Conc 32.3 g/dL (32-36); Mean Corpuscular Volume 96.6 fL (80-100); Monocytes # (auto) 0.61 K/uL (0.11-0.59); Monocytes % (auto) 10.3 %; Neutrophils # (auto) 2.98 K/uL (1.4-6.5); Neutrophils % (auto) 50.5 %; Platelet Count 209 K/uL (130-400); RDW Coefficient of Variation 12.6 % (11.5-14.5); RDW Standard Deviation 44.3 fL (36.4-46.3); Red Blood Count 4.07 M/uL (4.2-5.4)
[2019-04-23 06:29] LABS: Albumin Level 3.4 gm/dl (3.4-5.0); BUN Creatinine Ratio 28.3 (10-20); Calcium 9.1 mg/dl (8.5-10.1); Creatinine Clr Calc Pharmacy 28.8 ml/min; Est GFR (African American) 39.7; Est GFR (Non-African American) 34.3; Potassium 3.4 mmol/L (3.5-5.1)
[2019-04-23 06:34] LABS: Albumin Globulin Ratio 0.9 (0.9-2); Bilirubin,Total 1.2 mg/dl (0.2-1); Globulin 3.6 gm/dl (2.5-4.0)
[2019-04-23] MEDS: INSULIN ASPART 100 UNITS/ML 3 ML PEN SC SCH ×4 (07:41→22:18)
[2019-04-23] MEDS: METOPROLOL SUCC 25MG EXT REL TAB PO SCH (07:42)
[2019-04-23] MEDS: LOVASTATIN 20 MG TAB PO SCH (07:42)
[2019-04-23] MEDS: lisinopriL 5 MG TAB PO SCH (07:42)
[2019-04-23] MEDS: NYSTATIN SUSP 500,000 U/5 ML UDC PO SCH ×4 (07:43→21:00)
[2019-04-23] MEDS: POTASSIUM CHLORIDE 20 MEQ TABCR PO SCH (07:43)
[2019-04-23] MEDS: FUROSEMIDE 40 MG in SYRINGE 0 ML IV SCH (07:43)
[2019-04-23] MEDS: RIVAROXABAN 15 MG TAB PO SCH ×2 (07:44→21:00)
[2019-04-23] MEDS ORDERED: COUGH DROP (SUGAR FREE) LOZ 24 LOZ/1 BOX BUCCAL ONE (08:55)
--- NOTE | 2019-04-23 16:33 | Hospitalist Progress Note ---
Date of Service April 23, 2019 Assessment & Plan (1) Left ventricular thrombus: Patient has left ventricular thrombus found on the echocardiogram with Dr. Ross mattress and boxsprings supervisor. Continue Xarelto 15 mg p.o. twice daily for 21 days and then continue 20 mg p.o. daily Repeat TTE in 3 months Follow-up with Dr. Ross Lyme negative, TSH wnl (2) Acute exacerbation of congestive heart failure: Echo findings remarkable for global LV dysfunction, EF 20 to 25%, apical LV thrombus, mild to moderate MR, mild RV dysfunction. Will hold IV lasix for now due to increasing creatinine - patient is sating 93% on RA Monitor daily in and out - now neg negative 300 ml Daily weight - down 1 kg from admission Decrease JORDAN for hypotension, continue metoprolol Cardiology will cath on Thursday if patient still hospitalized (3) Pulmonary edema: See above No longer requiring supplemental O2 (4) Diabetes mellitus type 2, uncontrolled: Hold home metformin BSGs ac & hs, ss (5) Hypercholesterolemia: Lipid panel wnl, continue lovastatin 20 mg p.o. daily (6) Hypertension: Continue monitoring, blood pressures low normal to mildly hypotensive Will decrease lisinopril to 2.5 mg from 5 mg per cardiology rec (7) Thrush of mouth and esophagus: Continue nystatin 4 times a day. Patient advised to use soft brush to clean her tongue after each meal. Patient also appears to be malnourished which is contributing to her immunocompromised state. Patient said that she was on antibiotics antibiotics for several months which could also be contributory factor. Nutrition consult placed for assessment of nutrition. (8) Diarrhea: Stool cultures and C diff cancelled as patient has had no further diarrhea (9) DVT prophylaxis: Rivaroxaban Subjective Ms. Del Angel is feeling better today, breathing improved. She denies any pain Review of Systems Review of Systems: All systems reviewed & are unremarkable except as noted in HPI & below Physical Exam Physical Exam: General: no distress Eyes: normal inspection, PERLL Respiratory: chest non tender, clear to auscultation, normal breath sounds, no respiratory distress, no accessory muscle use Cardiac: regular rate and rhythm, no rub or gallop, no murmur, no edema, no jvd GI/: active bowel sounds, no abd pain or tenderness, soft, non distended Extremities: normal range of motion, normal strength, non tender Neuro/Psych: alert and oriented x 3, normal mood and affect Skin: normal color, dry Results & Data Vital Signs (Past 12 Hours) Vital Signs Temp Pulse Pulse Resp BP BP Pulse Ox 04/23/19 16:00 87 04/23/19 14:55 36.5 C 89 18 100/56 L 93 04/23/19 10:41 36.8 C 79 16 101/66 92 04/23/19 07:43 36.6 C 83 19 91/58 L 90 PG Care Time/CCT Total # of Minutes Spent Total Time Spent with Patient: Total time spent is greater than 50% in coordination of care (as documented) at patient's floor/unit and/or counseling patient: (1) Acute exacerbation of congestive heart failure Heart failure type: unspecified Qualified Code(s): I50.9 - Heart failure, unspecified
--- NOTE | 2019-04-23 18:11 | Cardiology Progress Note ---
Date of Service April 23, 2019 Assessment & Plan (1) Acute exacerbation of congestive heart failure: 2. Severe LV dysfunctionEF 20 to 25% 3. Apical LV thrombus 4. Left bundle branch block 5. Type 2 diabetes 6. Hypertension 7. Dyslipidemia Not diuresing as vigorously. Renal function is compromised likely from cardio- renal physiology. She still has an element of volume overload and pulmonary edema on exam. She will likely need more aggressive measures to include inotrope infusion to effect a good diuresis. We could try dopamine. Dobutamine would likely be more efficacious, but she also could have ischemic heart disease which has not yet been identified. I will discuss with the hospitalists. Continue Xarelto, metoprolol Agree with reducing lisinopril Will likely need R/LHC on Thursday. Subjective The patient claims to be feeling better. Overall her breathing is much improved. No orthopnea. No dizziness with ambulation. Some occasional coughing. Review of Systems Review of Systems: per HPI Physical Exam Physical Exam: Alert. Oriented. HEENT: EOMI, no scleral icterus. Lungs: Rales at the bases bilaterally Cardiac: Normal rate. No murmur Extremities: Minimal peripheral edema. Results & Data Vital Signs (Past 12 Hours) Vital Signs Temp Pulse Pulse Resp BP BP Pulse Ox 04/23/19 16:00 87 04/23/19 14:55 36.5 C 89 18 100/56 L 93 04/23/19 10:41 36.8 C 79 16 101/66 92 04/23/19 07:43 36.6 C 83 19 91/58 L 90 Laboratory Results Abnormal Lab Results 04/22/19 04/23/19 04/23/19 20:52 05:27 05:27 WBC 5.90 RBC 4.07 L Hgb 12.7 Hct 39.3 MCV 96.6 MCH 31.2 MCHC 32.3 RDW Std Deviation 44.3 RDW Coeff of [place]aka 12.6 Plt Count 209 MPV 11.0 H Immature Gran % (Auto) 0.2 Neut % (Auto) 50.5 Lymph % (Auto) 34.6 [place] % (Auto) 10.3 Eos % (Auto) 4.2 Baso % (Auto) 0.2 Immature Gran # (Auto) 0.01 Neut # (Auto) 2.98 Lymph # (Auto) 2.04 [place] # (Auto) 0.61 H Eos # (Auto) 0.25 Baso # (Auto) 0.01 Sodium 140 Potassium 3.4 L Chloride 101 Carbon Dioxide 29 Anion Gap 10.0 BUN 40 H D Creatinine 1.43 H D Est Cr Clr Drug Dosing 28.8 Est GFR ( Amer) 39.7 Est GFR (Non-Af Amer) 34.3 BUN/Creatinine Ratio 28.3 H Glucose 120 H POC Glucose 131 H Calcium 9.1 Total Bilirubin 1.2 H AST 18 ALT 18 Alkaline Phosphatase 43 L Total Protein 7.0 Albumin 3.4 Globulin 3.6 Albumin/Globulin Ratio 0.9 04/23/19 04/23/19 04/23/19 07:35 11:21 16:08 WBC RBC Hgb Hct MCV MCH MCHC RDW Std Deviation RDW Coeff of [place] Plt Count MPV Immature Gran % (Auto) Neut % (Auto) Lymph % (Auto) [place] % (Auto) Eos % (Auto) Baso % (Auto) Immature Gran # (Auto) Neut # (Auto) Lymph # (Auto) [place] # (Auto) Eos # (Auto) Baso # (Auto) Sodium Potassium Chloride Carbon Dioxide Anion Gap BUN Creatinine Est Cr Clr Drug Dosing Est GFR ( Amer) Est GFR (Non-Af Amer) BUN/Creatinine Ratio Glucose POC Glucose 128 H 163 H 143 H Calcium Total Bilirubin AST ALT Alkaline Phosphatase Total Protein Albumin Globulin Albumin/Globulin Ratio PG Care Time/CCT Total # of Minutes Spent Total Time Spent with Patient: Total time spent is greater than 50% in coordination of care (as documented) at patient's floor/unit and/or counseling patient: (1) Acute exacerbation of congestive heart failure Heart failure type: unspecified Qualified Code(s): I50.9 - Heart failure, unspecified
[2019-04-24 06:05] LABS: Basophils # (auto) 0.01 K/uL (0-0.2); Basophils % (auto) 0.2 %; Eosinophils # (auto) 0.23 K/uL (0-0.5); Eosinophils % (auto) 4.3 %; Hematocrit (blood only) 35.2 % (37-47); Hemoglobin 11.8 g/dL (12.0-16.0); Lymphocytes # (auto) 1.77 K/uL (1.2-3.4); Lymphocytes % (auto) 32.7 %; Mean Corpuscular Hemoglobin 31.9 pg (25-34); Mean Corpuscular Hgb Conc 33.5 g/dL (32-36); Mean Corpuscular Volume 95.1 fL (80-100); Mean Platelet Volume 10.9 fL (7.4-10.4); Monocytes # (auto) 0.53 K/uL (0.11-0.59); Monocytes % (auto) 9.8 %; Neutrophils # (auto) 2.87 K/uL (1.4-6.5); Platelet Count 196 K/uL (130-400); RDW Coefficient of Variation 12.4 % (11.5-14.5); RDW Standard Deviation 42.8 fL (36.4-46.3); White Blood Count 5.41 K/uL (4.8-10.8)
[2019-04-24 06:45] LABS: Albumin Level 3.3 gm/dl (3.4-5.0); BUN Creatinine Ratio 41.1 (10-20); Calcium 8.9 mg/dl (8.5-10.1); Creatinine Clr Calc Pharmacy 30.2 ml/min; Est GFR (African American) 41.8; Est GFR (Non-African American) 36.1; Potassium 3.5 mmol/L (3.5-5.1)
[2019-04-24 06:47] LABS: Bilirubin,Total 0.8 mg/dl (0.2-1); Globulin 3.4 gm/dl (2.5-4.0); Total Protein 6.7 gm/dl (6.4-8.2)
[2019-04-24] MEDS: INSULIN ASPART 100 UNITS/ML 3 ML PEN SC SCH ×4 (07:58→20:18)
[2019-04-24] MEDS: RIVAROXABAN 15 MG TAB PO SCH ×2 (07:59→20:04)
[2019-04-24] MEDS: LOVASTATIN 20 MG TAB PO SCH (07:59)
[2019-04-24] MEDS: POTASSIUM CHLORIDE 20 MEQ TABCR PO SCH (08:02)
[2019-04-24] MEDS: NYSTATIN SUSP 500,000 U/5 ML UDC PO SCH ×4 (08:03→20:04)
[2019-04-24] MEDS: METOPROLOL SUCC 25MG EXT REL TAB PO SCH (09:07)
[2019-04-24] MEDS: lisinopriL 5 MG TAB PO SCH (09:07)
[2019-04-24] MEDS ORDERED: FUROSEMIDE 80 MG in SYRINGE 0 ML IV ONE (10:30)
--- NOTE | 2019-04-24 10:30 | Cardiology Progress Note ---
Date of Service April 24, 2019 Assessment & Plan (1) Acute exacerbation of congestive heart failure: 2. Severe LV dysfunctionEF 20 to 25% 3. Apical LV thrombus 4. Left bundle branch block 5. Type 2 diabetes 6. Hypertension 7. Dyslipidemia She continues to have element of pulmonary vascular congestion and overall volume overload. She received 1 dose of diuretic yesterday without much effect. We have decided to try a higher dose of diuretic this morning to see if this affects a diuresis. However, I am concerned that she has an element of cardiorenal syndrome and may require high inotropic or pressor support in order to affect better diuresis. Will monitor her response to diuretic dose this morning and consider dopamine infusion with additional doses of diuretic this afternoon. Dobutamine may be a better option in long run, however evaluation of her coronary anatomy may be helpful prior to initiation of dobutamine. She will continue on her current dose of Xarelto which is dosed for venous thrombotic events. We will hold her morning dose of rivaroxaban in anticipation heart catheterization. Whether she will undergo the procedure tomorrow I think depends on her clinical picture in the morning. Continue metoprolol Continue rivaroxaban Lasix 80 milligrams IV Repeat chemistry profile this afternoon In the absence of significant diuresis or worsening renal function consider inotrope confusion with dopamine this afternoon Tentatively plan for right and left heart catheterization tomorrow Subjective This morning the patient claims to feeling all right. She was able to sleep some last night. She continues to have a cough which is worse when lying flat. However, she is able to lie flat for a good portion of time. Her breathing is improved since admission but not normal. He denies symptoms of chest discomfort. No dizziness or lightheadedness. No sense of palpitation. Review of Systems Review of Systems: Per HPI Physical Exam Physical Exam: She is alert and oriented x3. Mood affect appear normal. She answered all questions appropriately. HEENT: Sclerae are anicteric. Pupils are equal and reactive to light and accommodation. Extraocular movements were intact. Neuro: Cranial nerves intact Lungs: Crackles to mid lung ham bilaterally. Cardiac: The rhythm was regular. S1 and S2 were normal. There are no murmurs on examination. The PMI was not markedly displaced on palpation. Abdomen: The abdomen was soft and nontender. Extremities: Patient has bilateral radial pulses that are equal in intensity. There is no evidence cyanosis or clubbing. There was no evidence of significant peripheral edema bilaterally. Skin: There are no rashes noted on examination today. Results & Data Vital Signs (Past 12 Hours) Vital Signs Temp Pulse Pulse Pulse Resp BP BP 04/24/19 08:21 36.3 C L 89 16 100/65 04/24/19 03:16 36.7 C 78 16 91/60 L 04/24/19 01:01 85 91/57 L 04/24/19 00:40 36.7 C 89 16 83/55 L 04/24/19 00:01 86 Pulse Ox 04/24/19 08:21 92 04/24/19 03:16 92 04/24/19 01:01 04/24/19 00:40 93 04/24/19 00:01 Laboratory Results Abnormal Lab Results 04/23/19 04/23/19 04/23/19 11:21 16:08 20:46 WBC RBC Hgb Hct MCV MCH MCHC RDW Std Deviation RDW Coeff of Shaka Plt Count MPV Immature Gran % (Auto) Neut % (Auto) Lymph % (Auto) [place] % (Auto) Eos % (Auto) Baso % (Auto) Immature Gran # (Auto) Neut # (Auto) Lymph # (Auto) [place] # (Auto) Eos # (Auto) Baso # (Auto) Sodium Potassium Chloride Carbon Dioxide Anion Gap BUN Creatinine Est Cr Clr Drug Dosing Est GFR ( Amer) Est GFR (Non-Af Amer) BUN/Creatinine Ratio Glucose POC Glucose 163 H 143 H 135 H Calcium Total Bilirubin AST ALT Alkaline Phosphatase Total Protein Albumin Globulin Albumin/Globulin Ratio 04/24/19 04/24/19 04/24/19 05:16 05:16 07:13 WBC 5.41 RBC 3.70 L Hgb 11.8 L Hct 35.2 L MCV 95.1 MCH 31.9 MCHC 33.5 RDW Std Deviation 42.8 RDW Coeff of Shaka 12.4 Plt Count 196 MPV 10.9 H Immature Gran % (Auto) 0.0 Neut % (Auto) 53.0 Lymph % (Auto) 32.7 [place] % (Auto) 9.8 Eos % (Auto) 4.3 Baso % (Auto) 0.2 Immature Gran # (Auto) 0.00 Neut # (Auto) 2.87 Lymph # (Auto) 1.77 [place] # (Auto) 0.53 Eos # (Auto) 0.23 Baso # (Auto) 0.01 Sodium 140 Potassium 3.5 Chloride 103 Carbon Dioxide 29 Anion Gap 8.0 BUN 56 H Creatinine 1.37 H Est Cr Clr Drug Dosing 30.2 Est GFR ( Amer) 41.8 Est GFR (Non-Af Amer) 36.1 BUN/Creatinine Ratio 41.1 H Glucose 116 H POC Glucose 125 H Calcium 8.9 Total Bilirubin 0.8 AST 20 ALT 20 Alkaline Phosphatase 41 L Total Protein 6.7 Albumin 3.3 L Globulin 3.4 Albumin/Globulin Ratio 1.0 ECG Additional Comments: Telemetry demonstrates sinus rhythm with a bundle branch block PG Care Time/CCT Total # of Minutes Spent Total Time Spent with Patient: Total time spent is greater than 50% in coordination of care (as documented) at patient's floor/unit and/or counseling patient: (1) Acute exacerbation of congestive heart failure Heart failure type: unspecified Qualified Code(s): I50.9 - Heart failure, unspecified
--- NOTE | 2019-04-24 10:31 | Hospitalist Progress Note ---
Date of Service April 24, 2019 Assessment & Plan (1) Left ventricular thrombus: Patient has left ventricular thrombus found on the echocardiogram with Dr. Ross numberer and wirer. Continue Xarelto 15 mg p.o. twice daily for 21 days and then continue 20 mg p.o. daily Repeat TTE in 3 months Follow-up with Dr. Ross Lyme negative, TSH wnl (2) Acute exacerbation of congestive heart failure: Echo findings remarkable for global LV dysfunction, EF 20 to 25%, apical LV thrombus, mild to moderate MR, mild RV dysfunction. Will hold IV lasix for now due to increasing creatinine - patient is sating 93% on RA Monitor daily in and out - not diuresing very briskly Daily weight Decrease JORDAN for hypotension, continue metoprolol Cardiology will cath on Thursday if patient still hospitalized Discussed with Dr. 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 Will give 80 mg Lasix IV now and repeat BMP this afternoon. Depending on renal function and diuresis will consider starting a dopamine gtt this afternoon. (3) Pulmonary edema: See above No longer requiring supplemental O2 (4) Diabetes mellitus type 2, uncontrolled: Hold home metformin BSGs ac & hs, ss (5) Hypercholesterolemia: Lipid panel wnl, continue lovastatin 20 mg p.o. daily (6) Hypertension: Continue monitoring, blood pressures low normal to mildly hypotensive Decreased lisinopril to 2.5 mg from 5 mg per cardiology rec (7) Thrush of mouth and esophagus: Continue nystatin 4 times a day. Patient advised to use soft brush to clean her tongue after each meal. Patient also appears to be malnourished which is contributing to her immunocompromised state. Patient said that she was on antibiotics antibiotics for several months which could also be contributory factor. Nutrition consult placed for assessment of nutrition. (8) Diarrhea: Stool cultures and C diff cancelled as patient has had no further diarrhea (9) DVT prophylaxis: Rivaroxaban Dispo: will be moved to MICU when a room opens up to facilitate initiation of non titrated dopamine gtt if she needs it. Possible cath with Dr. Ross tomorrow. Subjective Ms. Del Angel has been requiring oxygen intermittently but overall breathing has improved, no sob or cp. Review of Systems Review of Systems: All systems reviewed & are unremarkable except as noted in HPI & below Physical Exam Physical Exam: General: no distress Eyes: normal inspection, PERLL Respiratory: chest non tender, fine crackles bilateral bases, no respiratory distress, no accessory muscle use Cardiac: regular rate and rhythm, no rub or gallop, no murmur, no edema, no jvd GI/: active bowel sounds, no abd pain or tenderness, soft, non distended Extremities: normal range of motion, normal strength, non tender Neuro/Psych: alert and oriented x 3, normal mood and affect Skin: normal color, dry Results & Data Vital Signs (Past 12 Hours) Vital Signs Temp Pulse Pulse Pulse Resp BP BP 04/24/19 08:21 36.3 C L 89 16 100/65 04/24/19 03:16 36.7 C 78 16 91/60 L 04/24/19 01:01 85 91/57 L 04/24/19 00:40 36.7 C 89 16 83/55 L 04/24/19 00:01 86 Pulse Ox 04/24/19 08:21 92 04/24/19 03:16 92 04/24/19 01:01 04/24/19 00:40 93 04/24/19 00:01 PG Care Time/CCT Total # of Minutes Spent Total Time Spent with Patient: Total time spent is greater than 50% in coordination of care (as documented) at patient's floor/unit and/or counseling patient: (1) Acute exacerbation of congestive heart failure Heart failure type: unspecified Qualified Code(s): I50.9 - Heart failure, unspecified
[2019-04-24 14:55] LABS: BUN Creatinine Ratio 32.4 (10-20); Calcium 9.1 mg/dl (8.5-10.1); Creatinine Clr Calc Pharmacy 25.6 ml/min; Est GFR (African American) 34.1; Est GFR (Non-African American) 29.5; Potassium 4.3 mmol/L (3.5-5.1)
[2019-04-24] MEDS ORDERED: DOPAMINE / D5W 400 MG/250 ML BAG IV SCH (15:00)
[2019-04-25] MEDS: INSULIN ASPART 100 UNITS/ML 3 ML PEN SC SCH ×4 (09:14→20:46)
--- NOTE | 2019-04-25 10:08 | Cardiology Progress Note ---
Date of Service April 25, 2019 Assessment & Plan (1) Acute exacerbation of congestive heart failure: 2. Severe LV dysfunctionEF 20 to 25% 3. Apical LV thrombus 4. VANDANA 5. Type 2 diabetes 6. Hypertension 7. Left bundle branch block Negative more than a liter yesterday with 80 of IV Lasix initiation of dopamine. Serum creatinine up today Warm and well-perfused on exam but congestion persists Plan for left and right heart catheterization to rule out significant CAD and assess filling pressure/cardiac output. Hold a.m. lisinopril, Lasix and Xarelto Stop dopamine infusion for now Continue current beta-kim Further conditions pending findings of catheterization Subjective Given 80 IV of Lasix yesterday and started on dopamine. -1300 yesterday Creatinine up from 1.37-1.62 Today reports feeling just tired. Breathing slightly improved. Denies any chest pain or palpitations. Telemetry reviewedepisodes of wide-complex tachycardia since initiation of dopamine Review of Systems Review of Systems: 10 point review of systems was completed and was otherwise negative unless stated in HPI Physical Exam Physical Exam: General: Comfortable, no acute distress HEENT: Sclerae anicteric, mucous membranes moist Lungs: Decreased breath sounds at bases, few crackles Cardiac: Regular rate and rhythm, no murmurs. Abdomen: Soft, nontender, nondistended, positive bowel sounds. Extremities: Warm, well perfused, no edema. 2+ radial pulses Skin: No rashes or lesions. Neuro: Nonfocal Psych: Alert orient x3, normal affect and mood Results & Data Vital Signs (Past 12 Hours) Vital Signs Temp Pulse Pulse Resp BP BP BP 04/25/19 08:00 88 04/25/19 04:04 97.9 F 86 22 91/53 L 04/25/19 03:00 87 20 101/53 L 04/25/19 02:30 85 21 04/25/19 02:00 87 22 102/50 L 04/25/19 01:53 95 H 24 99/58 L 04/25/19 01:30 91 H 97/57 L 04/25/19 01:00 89 21 106/55 L 04/25/19 00:30 85 21 90/52 L 04/25/19 00:00 88 20 113/52 L 04/24/19 23:32 98.1 F 94 H 18 97/59 L 04/24/19 23:30 95 H 19 97/59 L 04/24/19 23:00 87 23 98/53 L 04/24/19 22:54 95 H 04/24/19 22:30 94 H 23 106/47 L Pulse Ox 04/25/19 08:00 04/25/19 04:04 95 04/25/19 03:00 95 04/25/19 02:30 95 04/25/19 02:00 92 04/25/19 01:53 93 04/25/19 01:30 04/25/19 01:00 95 04/25/19 00:30 95 04/25/19 00:00 94 04/24/19 23:32 95 04/24/19 23:30 95 04/24/19 23:00 94 04/24/19 22:54 04/24/19 22:30 92 PG Care Time/CCT Total # of Minutes Spent Total Time Spent with Patient: Total time spent is greater than 50% in coordination of care (as documented) at patient's floor/unit and/or counseling patient: (1) Acute exacerbation of congestive heart failure Heart failure type: unspecified Qualified Code(s): I50.9 - Heart failure, unspecified
[2019-04-25] MEDS ORDERED: fentaNYL citrate 100 MCG/2 ML VIAL ONE (10:13)
[2019-04-25] MEDS ORDERED: MIDAZOLAM HCL 1 MG/ML 2ML VIAL ONE (10:13)
[2019-04-25] MEDS ORDERED: HEPARIN (PORCINE) 1000 UNIT/ML 10 ML (CATH LAB USE ONLY) ONE ×2 (10:13→12:41)
[2019-04-25] MEDS ORDERED: NiCARDipine HCL INJ 2.5 MG/ML 10 ML AMP ONE (10:13)
[2019-04-25] MEDS ORDERED: NITROGLYCERIN/D5W 100MCG/ML 20ML SYR ONE (10:14)
--- NOTE | 2019-04-25 10:20 | Pre Anesthesia Assessment ---
Date of Service April 25, 2019 Pre Sedation Assessment Vital Signs Temp Pulse Pulse Pulse Resp BP BP 04/25/19 08:00 88 04/25/19 04:04 97.9 F 86 22 91/53 L 04/25/19 03:00 87 20 101/53 L 04/25/19 02:30 85 21 04/25/19 02:00 87 22 102/50 L 04/25/19 01:53 95 H 24 99/58 L 04/25/19 01:30 91 H 97/57 L 04/25/19 01:00 89 21 106/55 L 04/25/19 00:30 85 21 90/52 L 04/25/19 00:00 88 20 113/52 L 04/24/19 23:32 98.1 F 94 H 18 04/24/19 23:30 95 H 19 97/59 L 04/24/19 23:00 87 23 98/53 L 04/24/19 22:54 95 H 04/24/19 22:30 94 H 23 106/47 L 04/24/19 22:00 91 H 23 105/52 L 04/24/19 21:30 112/53 L 04/24/19 21:00 93 H 16 102/54 L 04/24/19 20:30 90 23 113/57 L 04/24/19 20:14 04/24/19 20:00 99 H 30 H 102/60 04/24/19 19:46 87 18 04/24/19 19:43 103 H 16 103/57 L 04/24/19 19:12 98.2 F 87 17 04/24/19 18:03 97.5 F L 90 12 109/76 04/24/19 16:00 83 04/24/19 15:30 98.4 F 87 18 04/24/19 11:41 97.9 F 86 16 BP Pulse Ox 04/25/19 08:00 04/25/19 04:04 95 04/25/19 03:00 95 04/25/19 02:30 95 04/25/19 02:00 92 04/25/19 01:53 93 04/25/19 01:30 04/25/19 01:00 95 04/25/19 00:30 95 04/25/19 00:00 94 04/24/19 23:32 97/59 L 95 04/24/19 23:30 95 04/24/19 23:00 94 04/24/19 22:54 04/24/19 22:30 92 04/24/19 22:00 94 04/24/19 21:30 92 04/24/19 21:00 95 04/24/19 20:30 95 04/24/19 20:14 102/60 04/24/19 20:00 93 04/24/19 19:46 103/57 L 93 04/24/19 19:43 93 04/24/19 19:12 88/52 L 92 04/24/19 18:03 98 04/24/19 16:00 04/24/19 15:30 106/67 92 04/24/19 11:41 100/65 95 Cardiovascular RRR, no murmur, no edema Respiratory normal respiratory effort, lungs clear to auscultation Pre-Sedation Airway Assessment Smoking Status: Never smoker Hx Sleep Apnea: No Hx Difficult Intubation: No Short, Thick Neck: No Thyromental Distance: > or= 3.5 Finger Breadths Oral Cavity: + WNL Mallampati Class: III Procedure Planning Contraindications for Sedation: none Current Medications Reviewed: Yes Notes The planned sedation has been discussed with the patient. Informed Consent was obtained. I have identified the patient, determined the appropriateness of sedation and have assessed the patient immediately prior to the procedure. All medicine(s) and interventions are by my order.
[2019-04-25] MEDS ORDERED: DOBUTamine 500MG / 250ML D5W (CATH LAB USE ONLY) ONE (11:33)
--- NOTE | 2019-04-25 11:49 | Post Anesthesia Assessment ---
Date of Service April 25, 2019 Post Sedation Assessment Vital Signs Temp Pulse Pulse Pulse Resp BP BP 04/25/19 08:00 88 04/25/19 04:04 97.9 F 86 22 91/53 L 04/25/19 03:00 87 20 101/53 L 04/25/19 02:30 85 21 04/25/19 02:00 87 22 102/50 L 04/25/19 01:53 95 H 24 99/58 L 04/25/19 01:30 91 H 97/57 L 04/25/19 01:00 89 21 106/55 L 04/25/19 00:30 85 21 90/52 L 04/25/19 00:00 88 20 113/52 L 04/24/19 23:32 98.1 F 94 H 18 04/24/19 23:30 95 H 19 97/59 L 04/24/19 23:00 87 23 98/53 L 04/24/19 22:54 95 H 04/24/19 22:30 94 H 23 106/47 L 04/24/19 22:00 91 H 23 105/52 L 04/24/19 21:30 112/53 L 04/24/19 21:00 93 H 16 102/54 L 04/24/19 20:30 90 23 113/57 L 04/24/19 20:14 04/24/19 20:00 99 H 30 H 102/60 04/24/19 19:46 87 18 04/24/19 19:43 103 H 16 103/57 L 04/24/19 19:12 98.2 F 87 17 04/24/19 18:03 97.5 F L 90 12 109/76 04/24/19 16:00 83 04/24/19 15:30 98.4 F 87 18 BP Pulse Ox 04/25/19 08:00 04/25/19 04:04 95 04/25/19 03:00 95 04/25/19 02:30 95 04/25/19 02:00 92 04/25/19 01:53 93 04/25/19 01:30 04/25/19 01:00 95 04/25/19 00:30 95 04/25/19 00:00 94 04/24/19 23:32 97/59 L 95 04/24/19 23:30 95 04/24/19 23:00 94 04/24/19 22:54 04/24/19 22:30 92 04/24/19 22:00 94 04/24/19 21:30 92 04/24/19 21:00 95 04/24/19 20:30 95 04/24/19 20:14 102/60 04/24/19 20:00 93 04/24/19 19:46 103/57 L 93 04/24/19 19:43 93 04/24/19 19:12 88/52 L 92 04/24/19 18:03 98 04/24/19 16:00 04/24/19 15:30 106/67 92 Recovery Score Activity: Moves 4 extremities Respiration: Deep Breath/Cough Circulation: +/-20% PreAnes Value Consciousness: Fully Awake Oxygen Saturation: O2 needed for >90% Discharge Sedation Level of Care: Fast Track Phase II Post Sedation Plan On clinical assessment, the patient appears to have tolerated the sedation without complications. Patient is recovering as anticipated. Patient will continue to be monitored by nursing and may be discharged when sedation discharge criteria are met per below protocol. Upon Completions of procedure and additional 15 minutes continue every 5 minute vital signs and the P.A.R. score; then discharge to a Phase I or Fast Track to Phase II per the following guidelines: * Discharge Patient to appropriate Phase II area if PAR is 8 or greater or return to pre- procedure baseline. The post - procedure orders will be as directed. * If PAR score is less than 8 or not return to pre-procedure baseline then patient will follow Phase I monitoring till PAR is reached for Phase II. The Phase I may be done in procedure room or may call to secure a Phase I area. * If naloxone or flumazenil are used for reversal, hold in Phase I for continued monitoring from when last reversal dose was given for a minimum of 60 minutes or longer pending the nurse and/or physician discretion of patient condition before discharge to Phase II. Please call the Sedation Physician to re-evaluate and complete post-note for discharge to Phase II area. Do NOT discharge from procedure sedation or Phase 1 until post- sedation evaluation note is complete by procedure /sedation MD Sedation Discharge Instructions to be given to the patient at discharge to home.
--- NOTE | 2019-04-25 11:59 | Cardiac Catheterization ---
[facility] Data: [employer] Cardiac Status Clinical evaluation leading to the procedure CAD Presenation: Sx unlikely to be ischemic Anginal Classification: No Symptoms Heart Failure: NYHA Class: CCS IV Cardiogenic Shock within 24 Hours: No Cardiac Arrest within 24 Hours: No Imaging Studies Past 6 Months: Yes Stress Studies Past 6 Months: No Diagnostic Physicians Name: Conner Ross MD Status: Elective Closure Device Percutaneous Entry Location: Radial Closure Device: Radial Band Intraprocedure Events Significant Disection: No Perforation: No Cardiac Cath Procedure Full Procedure Date April 25, 2019 Pre-Procedure Diagnosis Pre-Procedure Diagnosis: Cardiomyopathy AUC Score AUC Score: 7 Post-Procedure Diagnosis Post-Procedure Diagnosis: Mild CAD and Elevated Intracardiac Pressures Procedure(s) Performed Procedure(s) Performed: Coronary Angiography, Left Heart Cath, Right Heart Cath and Ultrasound Guided Vascular Access [employer] Conner Ross MD Surgical Appliances Salesperson(s) Ant Estimated Blood Loss Estimated Blood Loss: 10 Medication(s) Medication(s): Fentanyl, Heparin, Lidocaine 1%, Nicardipine, Nitroglycerin and Versed Summary of Findings Indication: New severe LV dysfunction Access: 6 Fr slender right radial artery, 6 Fr right basilic vein via ultrasound guidance Catheters: 6 Fr Quoc Romero Findings: LM -moderate caliber vessel, luminal irregularities LAD -moderate caliber vessel, moderate proximal calcification 30 to 40% proximal to mid disease, distal LAD small and tapers as wraps around apex. Gives off to diagonals. Moderate caliber first diagonal with 50 to 60% ostial stenosis. Circumflex -large caliber vessel, mid segment luminal irregularities, large bifurcating OM 2 without significant disease RCA -dominant, large caliber vessel, 20 to 30% lateproximal. Right PDA without severe disease RA 2 RV 44/6 PA 42/18 (27) PAWP 15 On Room Air PaSat 56% AoSat 83 % Thermo CO/CI 3.6/2.1 Aki CO/CI 3.9/2.2 On Room Air/Dobutamine 10 PaSat 57% AoSat 92 % Aki CO/CI 3.2/1.8 Arterial Closure: TR band Summary: 1. Mild to moderate nonobstructive coronary artery disease -30 to 40% diffuse proximal to mid LAD disease 2. Mildly elevated left-sided filling pressures. 3. Borderline cardiac output without significant change with dobutamine. 4. Borderline pulmonary pressures Recommendations: No significant improvement in cardiac output with dobutamine. Attempt further diuresis today with 80 IV Lasix but appears to be approaching euvolemia. Repeat chest x-ray, BNP --> if residual pleural effusions may need to consider thoracentesis. Continue ASCVD risk factor modification Hemodynamics Rest Ao:: 104/53/71 Final Ao: 101/54/91 LV: -- Radiation Exposure (mGy) 559 Contrast (mls) 40 Fluids (cc crystalloids) Fluids (cc crystalloids): 23 Drains Drains: none Anesthesia moderate Procedural Complication(s) None Disposition PCU I attest to the content of the Intraoperative Record and any orders documented therein. Any exceptions are noted below.
[2019-04-25] MEDS: FUROSEMIDE 40 MG in SYRINGE 0 ML IV SCH (12:43)
[2019-04-25] MEDS: lisinopriL 5 MG TAB PO SCH (12:46)
[2019-04-25] MEDS: POTASSIUM CHLORIDE 20 MEQ TABCR PO SCH (13:00)
[2019-04-25] MEDS ORDERED: FUROSEMIDE 80 MG in SYRINGE 0 ML IV SCH (13:00)
--- NOTE | 2019-04-25 13:00 | Hospitalist Progress Note ---
Date of Service April 25, 2019 Assessment & Plan (1) Left ventricular thrombus: Patient has left ventricular thrombus found on the echocardiogram with Dr. Ross pig sticker. Continue Xarelto 15 mg p.o. twice daily for 21 days and then continue 20 mg p.o. daily Repeat TTE in 3 months Follow-up with Dr. Ross Lyme negative, TSH wnl (2) Acute exacerbation of congestive heart failure: Echo findings remarkable for global LV dysfunction, EF 20 to 25%, apical LV thrombus, mild to moderate MR, mild RV dysfunction. IV diuresis per cardiology. Monitor daily in and out. Daily weight Decrease JORDAN for hypotension, continue metoprolol Cardiac catheterization today. Report noted. Continue dobutamine infusion (3) Pulmonary edema: Resolving No longer requiring supplemental O2 (4) Diabetes mellitus type 2, uncontrolled: Hold home metformin BSGs ac & hs, ss Continue sliding scale insulin coverage as needed (5) Hypercholesterolemia: Lipid panel wnl, continue lovastatin 20 mg p.o. daily (6) Hypertension: Continue monitoring, blood pressures low normal to mildly hypotensive Decreased lisinopril to 2.5 mg from 5 mg per cardiology recommendation this admi ssion (7) Thrush of mouth and esophagus: Continue nystatin 4 times a day. Patient advised to use soft brush to clean her tongue after each meal. Patient also appears to be malnourished which is contributing to her immunocompromised state. Patient said that she was on antibiotics antibiotics for several months which could also be contributory factor. Nutrition consult placed for assessment of nutrition. (8) Diarrhea: Stool cultures and C diff cancelled as patient has had no further diarrhea (9) DVT prophylaxis: Rivaroxaban Dispo: To be determined. Subjective The patient is seen after heart catheterization today. Family is at the bedside. No critical coronary stenosis noted. She remains on dobutamine drip creatinine 1.6 today. She remains off metformin. Review of Systems Review of Systems: Constitutional-no fever or chills ENT-no blurred vision, no double vision, no epistaxis, no sore throat Respiratory-no cough, no wheezing. Shortness of breath with exertion. Cardiac-no palpitations, no chest pain, no syncope GI-no nausea, vomiting, diarrhea, melena, hematochezia -no urinary retention, no urinary incontinence, no dysuria, no hematuria Musculoskeletal-no joint pain, no muscle tenderness Skin-no bruising, no rashes, no pruritus Neuro-no isolated weakness, no paresthesia, no weakness Psych-no depression, no anxiety Physical Exam Physical Exam: General-alert and oriented x3, no fevers, no chills HEENT-head atraumatic and normocephalic, TMs intact bilaterally, pupils equal and reactive to light, extraocular muscles intact Neck-no lymphadenopathy or thyromegaly, trachea midline Chest-bibasilar dullness and diminished breath sounds at the bases. No wheezes. Cardiac-irregular rhythm. Controlled rate. Normal S1 and S2 Abdomen-normal bowel sounds, nontender, no hepatosplenomegaly Extremities-no cyanosis, clubbing, or edema Neuro-cranial nerves II through XII intact, motor and sensory function within normal limits, strength symmetrical 5/5, no focal deficits Psych-normal affect, normal mood Results & Data Vital Signs (Past 12 Hours) Vital Signs Temp Pulse Pulse Resp BP BP Pulse Ox 04/25/19 12:34 37 C 105 H 18 121/51 L 95 04/25/19 08:00 88 04/25/19 04:04 36.6 C 86 22 91/53 L 95 04/25/19 03:00 87 20 101/53 L 95 04/25/19 02:30 85 21 95 04/25/19 02:00 87 22 102/50 L 92 04/25/19 01:53 95 H 24 99/58 L 93 04/25/19 01:30 91 H 97/57 L 04/25/19 01:00 89 21 106/55 L 95 Laboratory Results 04/24/19 05:16 04/24/19 13:55 PG Care Time/CCT Total # of Minutes Spent Total Time Spent with Patient: Total time spent is greater than 50% in coordination of care (as documented) at patient's floor/unit and/or counseling patient: (1) Acute exacerbation of congestive heart failure Heart failure type: unspecified Qualified Code(s): I50.9 - Heart failure, unspecified
[2019-04-25] MEDS: METOPROLOL SUCC 25MG EXT REL TAB PO SCH (13:01)
[2019-04-25] MEDS: LOVASTATIN 20 MG TAB PO SCH (13:01)
[2019-04-25] MEDS: NYSTATIN SUSP 500,000 U/5 ML UDC PO SCH ×4 (13:01→20:46)
[2019-04-25 14:02] LABS: Est GFR (Non-African American) 37.1; Potassium 4.1 mmol/L (3.5-5.1)
--- NOTE | 2019-04-25 15:14 | XRay Report ---
XR chest 2V routine HISTORY: Shortness of breath. COMPARISON: Chest 04/21/2019. FINDINGS: No pneumothorax. No pleural effusions. The pulmonary edema has essentially resolved. The he art remains enlarged. Focal lingular density is noted. IMPRESSION: 1. Interval resolution of the pulmonary edema. 2. Focal lingular density. This could represent atelectasis or pneumonia. 3. Stable cardiomegaly. Electronically signed by: Bashir Wilburn M.D. 04/25/2019 3:13 PM
[2019-04-25] MEDS: RIVAROXABAN 15 MG TAB PO SCH (20:46)
[2019-04-26 07:20] LABS: BUN Creatinine Ratio 42.9 (10-20); Calcium 8.7 mg/dl (8.5-10.1); Creatinine Clr Calc Pharmacy 38.4 ml/min; Est GFR (African American) 55.8; Est GFR (Non-African American) 48.1; Potassium 3.8 mmol/L (3.5-5.1)
--- NOTE | 2019-04-26 08:06 | Cardiology Progress Note ---
Date of Service April 26, 2019 Assessment & Plan (1) Acute exacerbation of congestive heart failure: 2. Severe LV dysfunctionEF 20 to 25% 3. Apical LV thrombus 4. VANDANA 5. Type 2 diabetes 6. Hypertension 7. Left bundle branch block 8. Nonsustained VT 9. SVT 10. Mild nonobstructive coronary artery disease Right heart catheterization yesterday showed preserved cardiac output, mildly elevated left-sided filling pressures. Net Even after IV lasix x1 yesterday Today off inotropes appears well-perfused with continued mild pulmonary congestion and O2 dependence. Renal function stable Continue IV diuresis, will give 80 IV this morning, likely another 80 IV later this afternoon target 500 to 1 L negative Continue current Toprol-XL. Hold lisinopril. Continue Xarelto PT/OT, OK d/c foote Continue statin Subjective Feeling better today. Denies any chest pain. Still on O2 but denies significant shortness of breath. Up walking around to bathroom in room. Net even yesterday after 80 of IV Lasix. Creatinine down to 1.08 Telemetry reviewedno additional VT since dopamine discontinued. Brief episode of SVT overnight. Review of Systems Review of Systems: All systems reviewed & are unremarkable except as noted in HPI & below Physical Exam Physical Exam: General: Comfortable, no acute distress, nasal cannula in place HEENT: Sclerae anicteric, mucous membranes moist Lungs: Crackles bilaterally, no rhonchi or wheezes Cardiac: Regular rate and rhythm, no murmurs. No JVD. Abdomen: Soft, nontender, nondistended, positive bowel sounds. Extremities: Warm, well perfused, no edema. Right radial artery access site with no ecchymosis, hematoma. Distal pulse and sensation intact. Skin: No rashes or lesions. Neuro: Nonfocal Psych: Alert orient x3, normal affect and mood Results & Data Vital Signs (Past 12 Hours) Vital Signs Temp Pulse Pulse Resp BP BP Pulse Ox 04/26/19 07:03 98.2 F 79 18 103/57 L 96 04/26/19 03:33 105/54 L 04/26/19 03:21 97.7 F 77 18 83/52 L 98 04/26/19 00:03 85 04/25/19 23:28 98.6 F 82 17 89/54 L 99 PG Care Time/CCT Total # of Minutes Spent Total Time Spent with Patient: Total time spent is greater than 50% in coordination of care (as documented) at patient's floor/unit and/or counseling patient: (1) Acute exacerbation of congestive heart failure Heart failure type: unspecified Qualified Code(s): I50.9 - Heart failure, unspecified
[2019-04-26] MEDS ORDERED: FUROSEMIDE 80 MG in SYRINGE 0 ML IV SCH (08:15)
[2019-04-26] MEDS: POTASSIUM CHLORIDE 20 MEQ TABCR PO SCH (08:48)
[2019-04-26] MEDS: LOVASTATIN 20 MG TAB PO SCH (08:48)
[2019-04-26] MEDS: RIVAROXABAN 15 MG TAB PO SCH ×2 (08:49→20:45)
[2019-04-26] MEDS: INSULIN ASPART 100 UNITS/ML 3 ML PEN SC SCH ×4 (08:51→20:45)
[2019-04-26] MEDS: METOPROLOL SUCC 25MG EXT REL TAB PO SCH (08:52)
[2019-04-26] MEDS: NYSTATIN SUSP 500,000 U/5 ML UDC PO SCH ×4 (08:52→20:45)
--- NOTE | 2019-04-26 12:27 | Hospitalist Progress Note ---
Date of Service April 26, 2019 Assessment & Plan (1) Left ventricular thrombus: Patient has left ventricular thrombus found on the echocardiogram with Dr. Ross nnp. Continue Xarelto 15 mg p.o. twice daily for 21 days and then continue 20 mg p.o. daily Repeat TTE in 3 months Follow-up with Dr. Ross Lyme negative, TSH wnl (2) Acute exacerbation of congestive heart failure: Echo findings remarkable for global LV dysfunction, EF 20 to 25%, apical LV thrombus, mild to moderate MR, mild RV dysfunction. IV diuresis per cardiology. Single dose IV Lasix reordered today Monitor daily in and out. Daily weight JORDAN inhibitor has been placed on hold due to low blood pressure. Continue metoprolol Cardiac catheterization completed 04/25. Report noted. She is now off inotropic support (3) Pulmonary edema: Resolving No longer requiring supplemental O2 (4) Diabetes mellitus type 2, uncontrolled: Hold home metformin BSGs ac & hs, ss Continue sliding scale insulin coverage as needed (5) Hypercholesterolemia: Lipid panel wnl, continue lovastatin 20 mg p.o. daily (6) Hypertension: Continue monitoring, blood pressures low normal to mildly hypotensive JORDAN inhibitor is now on hold. (7) Thrush of mouth and esophagus: Continue nystatin 4 times a day. Much improved. (8) Diarrhea: Resolved. (9) DVT prophylaxis: Rivaroxaban therapy Dispo: Expect discharge to home within the next day or 2. Subjective Pleasant and alert. No complaints. Cardiology entry noted. She will receive intravenous Lasix again today. Wood catheter will be removed. OT and PT ass essments requested. She has now off inotropic support. Review of Systems Review of Systems: Constitutional-no fever or chills ENT-no blurred vision, no double vision, no epistaxis, no sore throat Respiratory-no cough, no wheezing. Dyspnea on exertion Cardiac-no palpitations, no chest pain, no syncope GI-no nausea, vomiting, diarrhea, melena, hematochezia -no urinary retention, no urinary incontinence, no dysuria, no hematuria Musculoskeletal-no joint pain, no muscle tenderness Skin-no bruising, no rashes, no pruritus Neuro-no isolated weakness, no paresthesia, no weakness Psych-no depression, no anxiety Physical Exam Physical Exam: General-alert and oriented x3, no fevers, no chills HEENT-head atraumatic and normocephalic, TMs intact bilaterally, pupils equal and reactive to light, extraocular muscles intact Neck-no lymphadenopathy or thyromegaly, trachea midline Chest-bibasilar inspiratory rales. No wheezing. No rhonchi. No dullness to percussion. Cardiac-regular rate and rhythm, normal S1 and S2 Abdomen-normal bowel sounds, nontender, no hepatosplenomegaly Extremities-no cyanosis, clubbing, or edema Neuro-cranial nerves II through XII intact, motor and sensory function within normal limits, strength symmetrical 5/5, no focal deficits Psych-normal affect, normal mood Results & Data Vital Signs (Past 12 Hours) Vital Signs Temp Pulse Pulse Resp BP BP Pulse Ox 04/26/19 11:10 36.9 C 88 16 102/56 L 94 04/26/19 08:33 80 04/26/19 08:18 36.9 C 86 18 100/49 L 96 04/26/19 07:03 36.8 C 79 18 103/57 L 96 04/26/19 03:33 105/54 L 04/26/19 03:21 36.5 C 77 18 83/52 L 98 Laboratory Results 04/25/19 13:30 04/26/19 06:32 PG Care Time/CCT Total # of Minutes Spent Total Time Spent with Patient: Total time spent is greater than 50% in co ordination of care (as documented) at patient's floor/unit and/or counseling patient: (1) Acute exacerbation of congestive heart failure Heart failure type: unspecified Qualified Code(s): I50.9 - Heart failure, unspecified
--- NOTE | 2019-04-26 14:50 | Heart Failure Progress Note ---
Date of Service April 26, 2019 Assessment & Plan (1) Acute systolic CHF (congestive heart failure): (2) Cardiomyopathy: Patient appears to be improving. She appears to be near euvolemic today. She was ordered an additional 80 mg of Lasix IV this morning per Dr. Ross. She reports good urine output. Will likely be able to transition to oral diuretic starting tomorrow. Continue strict I&Os. Daily standing weights. Low sodium diet. Repeat Pro-BNP has improved from 5792 to 1918. Chest x-ray confirms resolution of pulmonary edema and no pleural effusions. Patient has a newly diagnosed severe left ventricular dysfunction. She was recently started on metoprolol 25 mg daily and lisinopril 5 mg daily as per the guideline recommendations. Her lisinopril is currently on hold secondary to hypotension. May consider Entresto if her blood pressure improves. Cardiac catheterization performed by Dr. Ross on 04/25/2019 with mild to moderate nonobstructive coronary artery disease, mildly elevated left-sided filling pressures, borderline cardiac output without significant change with dobutamine, and borderline pulmonary pressures. Anticipate continued titration of GDMT as an outpatient as heart rate and BP allow. Disposition: Recommend enrollment in [facility] heart failure program. Patient and daughter both agreeable. Will arrange for hospital follow up within 7 days of discharge. Will also need to follow up with with Dr. Ross. Will continue to follow during her stay. Juan Martínez reports that she is feeling much better today. She notes improvement in her breathing. She denies shortness of breath at rest or with conversation. She does still have some orthopnea but denies PND. Her lower extremity edema is improving. Her weight has been stable and she is - 1.[address] Ross has recommended an additional 80 mg of Lasix this morning and possibly again this afternoon. Her lisinopril has been held due to hypotension. She participated in physical therapy today and was able to ambulate of full loop around the floor without stopping. Physical Exam Physical Exam: General: Comfortable, no acute distress HEENT: Sclerae anicteric, mucous membranes moist Lungs: Decreased breath sounds at bases, few crackles Cardiac: Regular rate and rhythm, no murmurs. Abdomen: Soft, nontender, nondistended, positive bowel sounds. Extremities: Warm, well perfused, no pitting edema. 2+ radial pulses Skin: No rashes or lesions. Neuro: Nonfocal Psych: Alert orient x3, normal affect and mood Results & Data Vital Signs (Past 12 Hours) Vital Signs Temp Pulse Pulse Resp BP BP Pulse Ox 04/26/19 11:10 98.4 F 88 16 102/56 L 94 04/26/19 08:33 80 04/26/19 08:18 98.5 F 86 18 100/49 L 96 04/26/19 07:03 98.2 F 79 18 103/57 L 96 04/26/19 03:33 105/54 L 04/26/19 03:21 97.7 F 77 18 83/52 L 98 PG Care Time/CCT Total # of Minutes Spent Total Time Spent with Patient: Total time spent is greater than 50% in coordination of care (as documented) at patient's floor/unit and/or counseling patient:
[2019-04-26 15:28] LABS: iSTAT Arterial Blood Gas HCO3 26 meg/L (19-24); iSTAT Arterial Blood Gas pCO2 43 mmHg (35-46); iSTAT Arterial Blood Gas pH 7.39 (7.35-7.45); iSTAT Arterial Blood Gas pO2 65 mmHg (80-95); iSTAT Carbon Dioxide 27 mEq/l (24-31)
[2019-04-26 15:33] LABS: iSTAT Arterial Blood Gas HCO3 26 meg/L (19-24); iSTAT Arterial Blood Gas pCO2 45 mmHg (35-46); iSTAT Arterial Blood Gas pH 7.37 (7.35-7.45); iSTAT Arterial Blood Gas pO2 49 mmHg (80-95); iSTAT Carbon Dioxide 27 mEq/l (24-31)
[2019-04-27 06:30] LABS: BUN Creatinine Ratio 42.5 (10-20); Calcium 8.8 mg/dl (8.5-10.1); Creatinine Clr Calc Pharmacy 43.2 ml/min; Est GFR (African American) 64.3; Est GFR (Non-African American) 55.5; Potassium 3.6 mmol/L (3.5-5.1)
[2019-04-27] MEDS: INSULIN ASPART 100 UNITS/ML 3 ML PEN SC SCH ×4 (08:19→20:18)
[2019-04-27] MEDS: METOPROLOL SUCC 25MG EXT REL TAB PO SCH (08:19)
[2019-04-27] MEDS: RIVAROXABAN 15 MG TAB PO SCH ×2 (08:20→20:17)
[2019-04-27] MEDS: NYSTATIN SUSP 500,000 U/5 ML UDC PO SCH ×4 (08:20→20:16)
[2019-04-27] MEDS: POTASSIUM CHLORIDE 20 MEQ TABCR PO SCH (08:20)
[2019-04-27] MEDS: LOVASTATIN 20 MG TAB PO SCH (08:20)
[2019-04-27] MEDS: lisinopriL 5 MG TAB PO SCH (08:48)
--- NOTE | 2019-04-27 09:52 | Cardiology Progress Note ---
Date of Service April 27, 2019 Assessment & Plan (1) Acute systolic CHF (congestive heart failure): 2. Severe LV dysfunctionEF 20 to 25% 3. Apical LV thrombus 4. AKIresolved 5. Type 2 diabetes 6. Hypertension 7. Left bundle branch block 8. Nonsustained VT 9. SVT 10. Mild nonobstructive coronary artery disease -500 yesterday, renal function stable Mild pulmonary congestion persists on exam, still with NYHA class III equivalent symptoms on O2 Tachycardic yesterday but was not given Toprol-XL Give additional IV diuretics today, 80 IV lasix this morning. Given Toprol-XL this morning. Has been off JORDAN for >36 hrs. Will start entresto today Continue Xarelto Continue statin Hopeful for transition to p.o. diuretics tomorrow and home next 1 to 2 days. Subjective Reports feeling tired today. Difficulty sleeping due to noise last night. Breathing largely unchanged. Still endorses some orthopnea. Did walk with physical therapy yesterday in the halls. No chest pain. Telemetry reviewedno recurrent SVT or NSVT. -500 yesterday Review of Systems Review of Systems: All systems reviewed & are unremarkable except as noted in HPI & below Physical Exam Physical Exam: General: Comfortable although minimally dyspneic with sitting up on O2, no acute distress HEENT: Sclerae anicteric, mucous membranes moist Lungs: Few rales at bases bilaterally, no wheezes Cardiac: Tachycardic, regular. JVP approximately 6-7 Abdomen: Soft, nontender, nondistended, positive bowel sounds. Extremities: Warm, well perfused, no edema. Right radial artery access site with no ecchymosis, hematoma. Distal pulse and sensation intact. Skin: No rashes or lesions. Neuro: Nonfocal Psych: Alert orient x3, normal affect and mood Results & Data Vital Signs (Past 12 Hours) Vital Signs Temp Pulse Resp BP Pulse Ox 04/27/19 08:07 103 H 21 132/65 92 04/27/19 03:36 98.2 F 107 H 17 143/85 H 96 04/26/19 23:24 98.8 F 102 H 17 123/73 96 PG Care Time/CCT Total # of Minutes Spent Total Time Spent with Patient: Total time spent is greater than 50% in coordination of care (as documented) at patient's floor/unit and/or counseling patient:
[2019-04-27] MEDS ORDERED: FUROSEMIDE 80 MG in SYRINGE 0 ML IV SCH (10:15)
[2019-04-27] MEDS: SACUBITRIL-VALSARTAN 24-26 MG TAB PO SCH ×2 (10:59→20:17)
--- NOTE | 2019-04-27 11:44 | Hospitalist Progress Note ---
Date of Service April 27, 2019 Assessment & Plan (1) Left ventricular thrombus: Patient has left ventricular thrombus found on the echocardiogram with Dr. Ross hydrate thickener operator. Continue Xarelto 15 mg p.o. twice daily for 21 days and then continue 20 mg p.o. daily Repeat TTE in 3 months Follow-up with Dr. Ross Lyme negative, TSH wnl (2) Acute exacerbation of congestive heart failure: Echo findings remarkable for global LV dysfunction, EF 20 to 25%, apical LV thrombus, mild to moderate MR, mild RV dysfunction. IV diuresis per cardiology. Single dose IV Lasix reordered again today Monitor daily in and out. Daily weight JORDAN inhibitor has been stopped and she was started on Entresto today. Continue metoprolol Cardiac catheterization completed 04/25. Report noted. She is now off inotropic support (3) Pulmonary edema: Resolving. She was placed on oxygen again last night for mildly low oxygen saturation. Will follow. Wean off as tolerated. (4) Diabetes mellitus type 2, uncontrolled: Hold home metformin BSGs ac & hs, ss Continue sliding scale insulin coverage as needed (5) Hypercholesterolemia: Lipid panel wnl, continue lovastatin 20 mg p.o. daily (6) Hypertension: Continue monitoring, blood pressures low normal to mildly hypotensive JORDAN inhibitor has been discontinued. She is now on Entresto. (7) Thrush of mouth and esophagus: Continue nystatin 4 times a day. Much improved. (8) Diarrhea: Resolved. (9) DVT prophylaxis: Rivaroxaban therapy Dispo: Expect discharge to home within the next day or 2. Subjective Alert and pleasant. Cardiology entry noted. She received another dose of intravenous Lasix today and was started on Entresto therapy. Hopefully she can go home tomorrow. Creatinine down to 0.9. Potassium 3.6. She remains on Xarelto 15 mg twice a day for 21 days then 20 mg daily thereafter. Review of Systems Review of Systems: Constitutional-no fever or chills ENT-no blurred vision, no double vision, no epistaxis, no sore throat Respiratory-no cough, no wheezing. Dyspnea on exertion noted Cardiac-no palpitations, no chest pain, no syncope GI-no nausea, vomiting, diarrhea, melena, hematochezia -no urinary retention, no urinary incontinence, no dysuria, no hematuria Musculoskeletal-no joint pain, no muscle tenderness Skin-no bruising, no rashes, no pruritus Neuro-no isolated weakness, no paresthesia, no weakness Psych-no depression, no anxiety Physical Exam Physical Exam: General-alert and oriented x3, no fevers, no chills HEENT-head atraumatic and normocephalic, TMs intact bilaterally, pupils equal and reactive to light, extraocular muscles intact Neck-no lymphadenopathy or thyromegaly, trachea midline Chest-bibasilar inspiratory rales. No wheezing. No rhonchi. Cardiac-regular rate and rhythm, normal S1 and S2, no murmurs Abdomen-normal bowel sounds, nontender, no hepatosplenomegaly Extremities-no cyanosis, clubbing, or edema Neuro-cranial nerves II through XII intact, motor and sensory function within normal limits, strength symmetrical 5/5, no focal deficits Psych-normal affect, normal mood Results & Data Vital Signs (Past 12 Hours) Vital Signs Temp Pulse Resp BP BP Pulse Ox 04/27/19 10:54 37.0 C 90 13 122/70 93 04/27/19 08:07 103 H 21 132/65 92 04/27/19 03:36 36.8 C 107 H 17 143/85 H 96 Laboratory Results 04/25/19 13:30 04/27/19 05:32 PG Care Time/CCT Total # of Minutes Spent Total Time Spent with Patient: Total time spent is greater than 50% in coordination of care (as documented) at patient's floor/unit and/or counseling patient: (1) Acute exacerbation of congestive heart failure Heart failure type: unspecified Qualified Code(s): I50.9 - Heart failure, unspecified
[2019-04-28 07:07] LABS: BUN Creatinine Ratio 39.2 (10-20); Calcium 8.9 mg/dl (8.5-10.1); Creatinine Clr Calc Pharmacy 44.9 ml/min; Est GFR (African American) 67.7; Est GFR (Non-African American) 58.4; Potassium 3.8 mmol/L (3.5-5.1)
[2019-04-28] MEDS: INSULIN ASPART 100 UNITS/ML 3 ML PEN SC SCH ×2 (07:53→11:47)
[2019-04-28] MEDS: METOPROLOL SUCC 25MG EXT REL TAB PO SCH (07:53)
[2019-04-28] MEDS: LOVASTATIN 20 MG TAB PO SCH (07:53)
[2019-04-28] MEDS: SACUBITRIL-VALSARTAN 24-26 MG TAB PO SCH (07:54)
[2019-04-28] MEDS: POTASSIUM CHLORIDE 20 MEQ TABCR PO SCH (07:54)
[2019-04-28] MEDS: RIVAROXABAN 15 MG TAB PO SCH (07:54)
[2019-04-28] MEDS: NYSTATIN SUSP 500,000 U/5 ML UDC PO SCH ×2 (07:54→13:34)
--- NOTE | 2019-04-28 08:53 | Cardiology Progress Note ---
Date of Service April 28, 2019 Assessment & Plan (1) Acute systolic CHF (congestive heart failure): 2. Severe LV dysfunctionEF 20 to 25% 3. Apical LV thrombus 4. AKIresolved 5. Type 2 diabetes 6. Hypertension 7. Left bundle branch block 8. Nonsustained VT 9. SVT 10. Mild nonobstructive coronary artery disease Well-perfused, improved congestion from admission. Renal function stable now on Entresto From a cardiac standpoint okay with discharge today. Home on maintenance Lasix 80 mg daily Continue Toprol-X 25 daily, entresto 24/26 BID. Will titrate both as able as an outpatient Continue Xarelto Continue statin Follow-up with heart failure clinic early next week. -- Cardiac rehab as an outpatient -- Follow-up echo for thrombus in 3 months. Subjective Feeling well today. States still has periods where feels more short of breath. Denies any chest pain. Denies any palpitations. No other new complaints. - 275, weight down 1 pound from yesterday Review of Systems Review of Systems: All systems reviewed & are unremarkable except as noted in HPI & below Physical Exam Physical Exam: General: Comfortable, no acute distress, sitting up eating breakfast HEENT: Sclerae anicteric, mucous membranes moist Lungs: Clear to auscultation, minimally decreased at left base Cardiac: Regular rate and rhythm, no murmurs. No JVD. Abdomen: Soft, nontender, nondistended, positive bowel sounds. Extremities: Warm, well perfused, no edema. 2+ radial pulses Skin: No rashes or lesions. Neuro: Nonfocal Psych: Alert orient x3, normal affect and mood Results & Data Vital Signs (Past 12 Hours) Vital Signs Temp Pulse Pulse Pulse Resp BP Pulse Ox 04/28/19 07:13 98.4 F 81 20 107/60 94 04/28/19 03:22 97.5 F L 76 17 100/56 L 95 04/28/19 00:00 80 04/27/19 23:43 98.2 F 82 15 101/60 96 PG Care Time/CCT Total # of Minutes Spent Total Time Spent with Patient: Total time spent is greater than 50% in coordination of care (as documented) at patient's floor/unit and/or counseling patient:
[2019-04-28] MEDS ORDERED: FUROSEMIDE 80 MG TAB PO SCH (09:00)
--- NOTE | 2019-04-28 14:54 | Discharge Summary ---
Date of Service April 28, 2019 Admission HPI Per Admitting Provider Patient is a 83 years old female with past medical history of hypertension, hypercholesterolemia, type 2 diabetes mellitus, panic disorder without agoraphobia, esophageal reflux, who was sent to the emergency room by Dr. Conner Ross billet cutter with a request to evaluate the patient for with newly diagnosed severe LVH dysfunction and acute systolic heart failure. Presently patient has left ventricle thrombus, pulmonary edema and to start Lasix 40 mg IV twice daily,, metoprolol XL 25 mg daily, lisinopril 5 mg daily, started heparin drip in the emergency room and will bridge to Xarelto for LV thrombus with a plan to repeat echocardiogram in 3 months. Patient will eventually need left and right heart catheterization to rule out ischemia because of cardiomyopathy but also could be done once when patient is euvolemic at this hospitalization. We will check a BMP, thyroid, Lyme and iron studies. Appreciate Dr. Ross's recommendations patient reports and why NYHA class III and IV symptoms such as dyspnea presyncope with minimal exertion. Labs are reviewed: Which shows WBC 6.81, hemoglobin 13, hematocrit 39.8, platelets 236, PT 10.3, INR 1, APTT 23, sodium 141, potassium 3.9, chloride 107, BUN 23, creatinine 0.96, GFR 55.5,Calcium 10.2, AST 15, ALT 21, BNP 4698. Chest x-ray significant for pulmonary edema with small bilateral pleural effusions. Was made to admit patient to PCU on telemetry to for the urinalysis for pulmonary edema and for anticoagulation. Principal Diagnosis Acute on chronic systolic CHF LV Thrombus Discharge Exam Constitutional WD/WN, vitals as above Eyes + anicteric sclerae ENMT external ear and nose normal, oropharynx normal Neck trachea midline, no thyromegaly Respiratory normal respiratory effort; no labored breathing Auscultation: + diminished lung sounds (at bases minimally, bilat); no crackles, no rhonchi and no wheezes Cardiovascular RRR, no murmur, no edema Gastrointestinal (Abdomen) normal bowel sounds, soft, nontender, no hepatosplenomegaly Musculoskeletal Extremities: extremities normal to inspection; no cyanosis and no clubbing Skin no rashes, warm and dry Neurologic moves all extremities and awake; no focal motor deficits Psychiatric A+Ox3, euthymic affect Discharge Data Allergies Allergy/AdvReac Type Severity Reaction Status Date / Time Azo-Gantrisin TABS Allergy Unknown Unknown Uncoded 04/21/19 12:58 Dust Mite Allergy Unknown Unknown Uncoded 04/21/19 12:58 Statins Allergy Unknown Unknown Uncoded 04/21/19 12:58 Sulfa Drugs Allergy Unknown Unknown Uncoded 04/21/19 12:58 Consultations 04/21/19 12:14 ED Decision to Admit Stat 04/21/19 15:13 Consult Cardiology Routine Procedures Performed Operation Date: 04/25/19 11:00 Actual Procedures p Cineradiography w/Routine Exam - Jagjit Ross MD s Cath, Right Heart with Cors - Jagjit Ross MD s Ultrasound Vascular Access - Jagjit Ross MD Ordered Studies 04/25/19 10:16 CL Cath Imgs for PACS use only Routine CXRx 2 Hospital Course (1) Left ventricular thrombus: Patient has left ventricular thrombus found on the echocardiogram with billet cutter. Continue Xarelto 15 mg p.o. twice daily for 21 days total and then continue 20 mg p.o. daily Repeat TTE in 3 months Follow-up with Dr. Ross Lyme negative, TSH wnl (2) Acute exacerbation of congestive heart failure: Echo findings remarkable for global LV dysfunction, EF 20 to 25%, apical LV thrombus, mild to moderate MR, mild RV dysfunction. IV diuresis was given and had significant diuresis, net negative 4.4kg body weight CHF education given Daily weights, low sodium diet, fluid restriction JORDAN inhibitor has been stopped and she was started on Entresto -titrate up as outpt with Cardio Continue metoprolol succinate 25mg once daily -send out on lasix 80mg po qday, KCl replacement Cardiac catheterization completed 04/25. Report noted. She is now off inotropic support Follow-up with heart failure clinic early next week. -- Cardiac rehab as an outpatient -- Follow-up echo for thrombus in 3 months. (3) Pulmonary edema: Resolving. Weaned off O2 CXR improved with diuresis Cough improved (4) Diabetes mellitus type 2, uncontrolled: restart home metformin upon dc (5) Hypercholesterolemia: Lipid panel wnl, continue lovastatin 20 mg p.o. daily (6) Hypertension: stable JORDAN inhibitor has been discontinued. She is now on Entresto. -started on Toprol XL 25mg daily, lasix 80mg daily -dc home lisinopril/HCTZ (7) Thrush of mouth and esophagus: Continue nystatin 4 times a day x 7 more days. Much improved. (8) Diarrhea: Resolved. (9) VANDANA (acute kidney injury): resolved (10) LBBB (left bundle branch block): cath with mild nonobstructive coronary artery disease (11) CAD (coronary artery disease), crow coronary artery: Mild nonobstructive coronary artery disease seen on cath -started Toprol, Xarelto -continue statin (12) Abnormal chest xray: Remains with a focal lingular infiltrate on repeat CXR--> would repeat CXR in 3-4 weeks to ensure resolution (13) DVT prophylaxis: Rivaroxaban therapy [facility] Total Time Total Time Spent Total Time Spent (In Minutes): >30 min Total Time Includes: Examination of the Patient, Discharge Planning and Medication Reconciliation Discharge Plan Discharge Items Patient Disposition: [facility] Reason For Visit: PULMONARY EDEMA, LV THROMBUS Discharge Diagnosis: LV Thrombus, Acute systolic CHF Condition on Discharge: Good Activity: As commented below Lifting: Gradually increase as tolerated Bathing: No limitations Exercise/Sports: Gradually increase as tolerated Non-emergency contact: Primary Care Provider and Office Bookkeeper Call non-emergency contact if: you have any medication questions and your symptoms worsen Follow-up/Referrals: Nixon Ordoñez III, MD [Primary Care Provider] - 04/29/19 1:45 pm (Please, follow up with Dr. Ordoñez on ThursdayApril 29 at 1:45 pm. *If you need to change this appointment, call the office at [phone].) Mckenna Flores PA-C [Physician Printing Worker Supervisor] - 05/03/19 2:00 pm (Congestive Heart Failure Program Appointment Information Early follow up is essential to managing your heart failure. An appointment has been scheduled for you with the [facility] Heart Failure Program within 7 days of discharge. Anticipate this visit to be 30-60 minutes long. Please expect a assembler semiconductor phone call from one of our nurses approximately 48 hours from discharge. They will also be placing an order for lab work to be completed 1-2 days prior to your heart failure follow up appointment. Please be sure to have this done so we can go over the results when you come in. Office Location The cardiology office building is located in front of the hospital at [address] Bring the following with you to your follow-up doctor appointments: Please bring your daily weight log any discharge paperwork all of your medication bottles with you to this visit. ) Diet: Low Sodium (2gm) Fluids: 1800ml (7 cups) Addtl Attending Provider Instructions: Please take all your new cardiac meds as prescribed. You will need to be on the blood thinner, Xarelto for at least several months-the length of time will be determined by your Office Bookkeeper. Please follow up with the Office Bookkeeper and your PCP as scheduled for you. Call your Primary Care doctor if any of the following symptoms or problems start or get worse: * Shortness of breath or difficulty breathing * Wake up at night short of breath * Chest pain * Cough * Swelling of your hands, feet, or legs * More fatigued or tired with your normal activity * Palpitations - sudden fast heart beats WEIGHT * Weigh yourself every morning after using the bathroom. * Use the same scale. * Wear the same amount of clothing. * Write your weight down on a chart. * Call your Primary Care doctor if you gain more than 2-3 pounds in 1-2 days. MEDICATIONS * Use this discharge instruction sheet for medication instructions. * Take your medications at the time your doctor ordered. * Do not skip a dose of your medicines. * If you miss a dose of medicine, take it as soon as possible, but DO NOT DOUBLE A DOSE. * Read your medicine information when you get home. * Know all of the side effects of your medicine. If in doubt, ask your pharmacist * Call your Primary Care doctor's office if you have any side effects. * Be sure all of your doctors know what medicine and herbs you take (including cold, flu, and herbal medicine). Take the following with you to your follow-up doctor appointments: * Weight Chart * Medication List * List of questions Do not drink excessive alcohol, beer or wine. Pending Studies at Discharge: No Stand-Alone Forms: My [employer] Skilled Items Patient informed of condition?: Yes DNR: No Discharge Level of Care: Skilled Communicable Disease: No Discharge Prognosis: Improving Lines: None Urinary Catheter: No Medications and DC Order Prescriptions: New nystatin 100,000 unit/mL Suspension 5 ml PO QID 7 Days Qty: 140 RF: 0 Xarelto 15 mg Tablet 15 mg PO BID Qty: 28 RF: 0 Xarelto 20 mg Tablet 20 mg PO QDD Qty: 30 RF: 0 potassium chloride [Klor-Con M20] 20 mEq Tablet,Er Particles/Crystals 40 meq PO QAM Qty: 60 RF: 0 furosemide 80 mg Tablet 80 mg PO QAM Qty: 30 RF: 0 metoprolol succinate 25 mg Tablet Extended Release 24 Hr 25 mg PO QAM Qty: 30 RF: 0 Entresto 24-26 mg Tablet 1 tab PO BID Qty: 60 RF: 0 Continued metformin 500 mg tablet 500 mg PO QAM RF: 0 metformin 500 mg tablet 1,000 mg PO QPM RF: 0 lovastatin 20 mg tablet 20 mg PO DAILY RF: 0 Discontinued potassium chloride 10 mEq tablet extended release 10 meq PO BID RF: 0 triamterene-hydrochlorothiazid 37.5-25 mg capsule 1 cap PO DAILY RF: 0 Discharge Orders: Discharge Order (Routine); Ordered 04/28/19 Ordered By: Deloris Fuller/Other Patient Handouts: Rivaroxaban Oral tablet Rivaroxaban Oral tablet, Sacubitril Valsartan Oral tablet, Metoprolol Tartrate Oral tablet, Furosemide Oral tablet, Heart Failure Meds Control, Heart Failure, Heart Failure Warning Signs, Heart Failure Tracking Weight Admission Data Admit Date/Time: 04/21/19 13:37 Attending Provider: Deloris Linda Admit Provider: Thierno Bustos Primary Care Provider: Nixon Ordoñez III Other Providers: Jagjit Ross ; Diogenes Braxton ; Vu Perez Other Interventions: Discharge Summary Assessment (RN) Last Done: 04/28/19 15:23 DC Date/Time DO NOT enter until pt leaves facility: 04/28/19 16:43
--- NOTE | 2019-04-29 12:11 | Coding Query ---
CODING QUERY FOR UNCONTROLLED DIABETES To promote full compliance with coding requirements relating to patient care, provider participation is requested in all cases of lanolin plant operator uncertainty. Please assist us with the question(s) below: Coding Question: The term uncontrolled Diabetes was used throughout the record. To be able to code this diagnosis properly, could you please clarify the diagnosis below: ( ) Uncontrolled Diabetes meaning hypoglycemia ( x ) Uncontrolled Diabetes meaning hyperglycemia ( ) Other (please specify) Principal Diagnosis: "that condition established after study, to be chiefly responsible for occasioning the admission of the patient to the hospital for care." Co-Existing Principal Diagnosis: "when two or more diagnoses equally meet the criteria for principal diagnosis as determined by the circumstances of admission, diagnostic work up, and/or therapy provided, and the Alphabetic Index, Tabular List, or another coding guideline does not provide sequencing direction, any one of the diagnoses may be sequenced first." "When the physician has documented what appears to be a current diagnosis in the body of the record, but has not included the diagnosis in the final diagnostic statement, the physician should be asked whether the diagnosis should be added." ([facility] 2 QTR90. p3-4) EDGARDO
--- NOTE | 2019-04-29 12:11 | Coding Query ---
CODING QUERY To promote full compliance with coding requirements relating to patient care, provider participation is requested in all cases of computer language coder uncertainty. Please assist us with the question(s) below: Please clarify the meaning of VANDANA. VANDANA is not a valid abbreviation. Thank you. ( x ) Acute Kidney Injury ( ) Acute Kidney Insufficiency ( ) Other (Specify): Principal Diagnosis: "that condition established after study, to be chiefly responsible for occasioning the admission of the patient to the hospital for care." Co-Existing Principal Diagnosis: "when two or more diagnoses equally meet the criteria for principal diagnosis as determined by the circumstances of admission, diagnostic work up, and/or therapy provided, and the Alphabetic Index, Tabular List, or another coding guideline does not provide sequencing direction, any one of the diagnoses may be sequenced first." "When the physician has documented what appears to be a current diagnosis in the body of the record, but has not included the diagnosis in the final diagnostic statement, the physician should be asked whether the diagnosis should be added." ([facility] 2 QTR90. p3-4) EDGARDO
[2019-05-05 10:10] LABS: iSTAT Arterial Blood Gas HCO3 28 meg/L (19-24); iSTAT Arterial Blood Gas pCO2 48 mmHg (35-46); iSTAT Arterial Blood Gas pH 7.37 (7.35-7.45); iSTAT Arterial Blood Gas pO2 < 32 mmHg (80-95); iSTAT Carbon Dioxide 29 mEq/l (24-31)
[2019-05-05 10:11] LABS: iSTAT Arterial Blood Gas HCO3 29 meg/L (19-24); iSTAT Arterial Blood Gas pCO2 50 mmHg (35-46); iSTAT Arterial Blood Gas pH 7.37 (7.35-7.45); iSTAT Arterial Blood Gas pO2 < 32 mmHg (80-95); iSTAT Carbon Dioxide 31 mEq/l (24-31)
[2019-05-13] MEDS ORDERED: RIVAROXABAN 20 MG TAB PO SCH (16:30)
== END 2019-04-28 16:43 | DRG 287 ==
LOC: ED 11:23 → SUATTDRO 13:37 → 2S 13:37 → 2E 04-24 18:09

== ENCOUNTER 2019-10-27 10:32 | Observation (INO) ==
[2019-10-27] MEDS ORDERED: MIDAZOLAM HCL 5 MG/ML 1 ML VIAL ONE (12:12)
[2019-10-27] MEDS ORDERED: CEFAZOLIN 250 MG/ML 1 GM VIAL ONE (12:13)
[2019-10-27] MEDS ORDERED: fentaNYL citrate 100 MCG/2 ML VIAL ONE ×2 (12:13→14:48)
--- NOTE | 2019-10-27 12:27 | History & Physical Bridge Note ---
Date of Service October 27, 2019 History & Physical Bridge Note I have examined the patient, reviewed the History & Physical and in the interval since the performance of the History & Physical I have noted the following changes of clinical significance: no changes noted. I reviewed the indications, procedure, risks and alternatives of biventricular ICD implantation with her and she understands and agrees to proceed. Consent obtained. I also discussed conscious sedation with her and she understands and agrees. Consent obtained.
--- NOTE | 2019-10-27 12:28 | Pre Anesthesia Assessment ---
Date of Service October 27, 2019 Pre Sedation Assessment Vital Signs Temp Pulse Resp BP Pulse Ox 10/27/19 11:03 36.4 C L 83 18 152/79 H 95 Cardiovascular RRR, no murmur, no edema Respiratory normal respiratory effort, lungs clear to auscultation Pre-Sedation Airway Assessment Smoking Status: Never smoker Hx Sleep Apnea: No Hx Difficult Intubation: No Short, Thick Neck: No Thyromental Distance: > or= 3.5 Finger Breadths Oral Cavity: + Dentures and + WNL Mallampati Class: II ASA: ASA2 NPO Status Date of Last Intake of Fluids: 10/26/19 Time of Last Intake of Fluids: 23:00 Date of Last Intake of Solid Food: 10/26/19 Time of Last Intake of Solid Foods: 23:00 Procedure Planning Contraindications for Sedation: none Current Medications Reviewed: Yes Notes The planned sedation has been discussed with the patient. Informed Consent was obtained. I have identified the patient, determined the appropriateness of sedation and have assessed the patient immediately prior to the procedure. All medicine(s) and interventions are by my order.
[2019-10-27] MEDS ORDERED: BACITRACIN OINT 0.9 GM PKT ONE (12:34)
[2019-10-27] MEDS ORDERED: LIDOCAINE HCL 1% 20 ML VIAL ONE (12:34)
[2019-10-27] MEDS ORDERED: BACITRACIN INJ 50,000 UNIT VIAL ONE (12:35)
[2019-10-27 12:40] LABS: Basophils # (auto) 0.01 K/uL (0-0.2); Basophils % (auto) 0.2 %; Eosinophils # (auto) 0.12 K/uL (0-0.5); Eosinophils % (auto) 2.2 %; Hematocrit (blood only) 40.8 % (37-47); Hemoglobin 13.8 g/dL (12.0-16.0); Lymphocytes # (auto) 1.74 K/uL (1.2-3.4); Lymphocytes % (auto) 31.5 %; Mean Corpuscular Hemoglobin 32.1 pg (25-34); Mean Corpuscular Volume 94.9 fL (80-100); Mean Platelet Volume 10.7 fL (7.4-10.4); Monocytes # (auto) 0.37 K/uL (0.11-0.59); Monocytes % (auto) 6.7 %; Neutrophils # (auto) 3.28 K/uL (1.4-6.5); Neutrophils % (auto) 59.4 %; Platelet Count 217 K/uL (130-400); RDW Coefficient of Variation 12.2 % (11.5-14.5); RDW Standard Deviation 41.6 fL (36.4-46.3); White Blood Count 5.52 K/uL (4.8-10.8)
[2019-10-27 12:41] LABS: Mean Corpuscular Hgb Conc 33.8 g/dL (32-36)
[2019-10-27 12:53] LABS: Partial Thromboplastin Time 27.3 Seconds (21.0-31.0); Prothrombin Time 10.8 Seconds (9.0-12.0)
[2019-10-27 12:59] LABS: BUN Creatinine Ratio 43.2 (10-20); Calcium 9.9 mg/dl (8.5-10.1); Creatinine Clr Calc Pharmacy 49.7 ml/min; Est GFR (African American) 77.2; Est GFR (Non-African American) 66.6; Potassium 3.7 mmol/L (3.5-5.1)
[2019-10-27] MEDS ORDERED: MIDAZOLAM HCL 1 MG/ML 2ML VIAL ONE (14:52)
[2019-10-27] MEDS ORDERED: ACETAMINOPHEN W/CODEINE #3 1 TAB PO PRN (15:41)
[2019-10-27] MEDS ORDERED: ACETAMINOPHEN 325 MG TAB PO PRN (15:41)
--- NOTE | 2019-10-27 15:41 | Electrophysiology Report ---
Date of Service October 27, 2019 Electrophysiology Procedure Electrophysiology Procedure Report Preoperative diagnosis: Left bundle branch block, cardiomyopathy, congestive heart failure Postoperative diagnosis: Same Procedure: Atrial and ventricular defibrillator lead implantation Coronary sinus angiography Left ventricular lead implantation Biventricular ICD implantation Surgeon: Nam Arcos MD Estimated blood loss: 50 cc Complications: None Disposition: Cardiology recovery Procedure details: After obtaining informed consent for the procedure, the patient was brought to the laboratory and prepped and draped in the standard sterile manner. The left prepectoral region was anesthetized with 1% lidocaine local anesthetic and left axillary venipuncture was performed by percutaneous technique and a guidewire placed through the left subclavian vein into the superior vena cava. The area was further infiltrated with 1% lidocaine local anesthetic and a 5 cm incision was made parallel to the left clavicle and 2 cm below it and carried down to the anterior pectoralis fascia. An ICD pocket was formed by blunt dissection anterior to the pectoralis fascia and a bacitracin- soaked sponge (50,000 units in 50 cc normal saline solution) was placed in the pocket. A 10.5 [place] Medtronic lead introducer was placed over the guidewire into the left subclavian vein, the dilator and guidewire were removed and a bipolar active fixation steroid tipped ventricular ICD lead was advanced through the introducer into the superior vena cava. A guidewire was placed through the introducer and the introducer was stripped from the lead and guidewire. An 8 [place] Medtronic lead introducer was placed over the guidewire into the left subclavian vein, the dilator and guidewire were removed and a bipolar active fixation steroid tipped atrial lead was advanced through the introducer into the superior vena cava. A guidewire was placed back through the introducer and the introducer was stripped from the lead and guidewire. Using a curved stylette the ventricular lead was advanced through the right ventricular outflow tract into the pulmonary artery and then using a straight stylette was positioned in the right ventricular apex. The screw was extended fixing the lead in position. Pacing and sensing thresholds were evaluated in bipolar configuration and are recorded on the implant data sheet. Diaphragmatic pacing was evaluated at full bipolar output as indicated on the data sheet. Using a curved stylette the atrial lead was positioned in the region of the atrial appendage and the screw extended fixing the lead in position. Pacing and sensing thresholds were evaluated in bipolar configuration and are recorded on the implant data sheet. Diaphragmatic pacing was evaluated at full bipolar output as indicated on the data sheet. Once the leads were in position they were attached to the anterior pectoralis fascia using 1 suture of 2-0 silk around each lead collar. The short guidewire was exchanged for a long guidewire and a [place] coronary sinus sheath was advanced to position in the right atrium. The curved obturator was placed through the sheath and using x-ray dye the os of the coronary sinus was identi fied. A guidewire was placed through the introducer into the coronary sinus and the [place] sheath was advanced into the coronary sinus. A balloon occlusion catheter was advanced through this sheath into the coronary sinus, the balloon was inflated and dye was injected in various projections to obtain a coronary sinus angiogram. A good vessel was identified and a 0.014 inch guidewire was advanced into this vessel. A quadripolar coronary sinus catheter was advanced over the guidewire into good distal position. The left ventricular pacing threshold was evaluated in various configurations, as recorded on the implant data sheet. Diaphragmatic pacing was evaluated at full output, as indicated on the data sheet. Once this lead was in position the introducer system was removed from the lead and the lead was attached to the anterior pectoral fascia using 2 sutures of 2-0 silk around the lead collar. An additional suture of 2-0 silk was placed around each of the atrial and ventricular lead collars as well. The bacitracin-soaked sponge was removed from the pocket, hemostasis was obtained, the ICD was attached to the leads and placed in the pocket with the leads coiled beneath it. The incision was closed with a running double subcutaneous closure of 3-0 Vicryl absorbable suture, followed by running subcuticular skin closure of 4-0 Vicryl absorbable suture. Bacitracin ointment was placed on the incision and a pressure dressing applied. [facility] Electrophysiology codes Pacing Procedure 1: Pacin BiV electrode w/Pacer / ICD implant, add on code ICD Procedure 1: ICD: 54513 Insert single or dual ICD system Miscellaneous Procedures Procedure 1: EP Miscellaneous: 80546-62 Venography, CS supevsion/interp Procedure 2: EP Miscellaneous: 74791 Contrast injection for venography PG Moderate Sedation Codes Moderate Sedation Codes Procedure 1: Sedation/Anesthesia: 68279 Mod Sedation by the same physician;Init15 Min Child Age 5 & Up Procedure 2: Sedation/Anesthesia: 12900 Mod Sedation by the same physician; Ea [id number] Minutes
--- NOTE | 2019-10-27 16:44 | Post Anesthesia Assessment ---
Date of Service October 27, 2019 Post Sedation Assessment Vital Signs Temp Pulse Resp BP Pulse Ox 10/27/19 15:55 88 16 115/76 92 10/27/19 15:41 36.2 C L 88 12 122/78 92 10/27/19 11:03 36.4 C L 83 18 152/79 H 95 Discharge Sedation Level of Care: Fast Track Phase II Post Sedation Plan On clinical assessment, the patient appears to have tolerated the sedation without complications. Patient is recovering as anticipated. Patient will continue to be monitored by nursing and may be discharged when sedation discharge criteria are met per below protocol. Upon Completions of procedure up to 15 minutes continue every 5 minute vital signs and the P.A.R. score; then discharge to a Phase I or Fast Track to Phase II per the following guidelines: * Discharge Patient to appropriate Phase II area if PAR is 8 or greater or return to pre- procedure baseline. The post - procedure orders will be as directed. * If PAR score is less than 8 or not return to pre-procedure baseline then patient will follow Phase I monitoring till PAR is reached for Phase II. The Phase I may be done in procedure room or may call to secure a Phase I area. * If naloxone or flumazenil are used for reversal, hold in Phase I for continued monitoring from when last reversal dose was given for a minimum of 60 minutes or longer pending the nurse and/or physician discretion of patient condition before discharge to Phase II. Please call the Sedation Physician to re-evaluate and complete post-note for discharge to Phase II area. Do NOT discharge from procedure sedation or Phase 1 until post- sedation evaluation note is complete by procedure /sedation MD Sedation Discharge Instructions to be given to the patient at discharge to home.
[2019-10-27] MEDS: SACUBITRIL-VALSARTAN 97-103 MG TAB PO SCH (20:52)
[2019-10-27] MEDS: POTASSIUM CHLORIDE 20 MEQ TABCR PO SCH (20:52)
--- NOTE | 2019-10-28 07:06 | XRay Report ---
XR chest 2V PA/lateral CLINICAL HISTORY: Chest x-ray status post pacemaker placement. COMPARISON STUDY: 04/25/2019 FINDINGS: The cardiac and mediastinal contours remain stable. There is been interval placement of a l eft subclavian pacer/defibrillator. Electrode position appears unremarkable. No pneumothorax is visua lized. There is stable left basilar atelectasis/scarring. There is no failure. There is no acute pare nchymal consolidation.[ IMPRESSION: 1. Stable left basilar atelectasis/scarring 2. No evidence of pneumothorax. ACT 112: Negative or not required by law. Electronically signed by: Rigo Ann M.D. 10/28/2019 7:04 AM
[2019-10-28 08:20] LABS: Calcium 9.3 mg/dl (8.5-10.1); Creatinine Clr Calc Pharmacy 52.9 ml/min; Est GFR (African American) 82.1; Est GFR (Non-African American) 70.8; Potassium 3.8 mmol/L (3.5-5.1)
[2019-10-28] MEDS: POTASSIUM CHLORIDE 20 MEQ TABCR PO SCH (08:45)
[2019-10-28] MEDS: SACUBITRIL-VALSARTAN 97-103 MG TAB PO SCH (08:45)
[2019-10-28] MEDS ORDERED: METOPROLOL SUCC 50MG EXT REL TAB PO SCH (09:00)
[2019-10-28] MEDS ORDERED: FUROSEMIDE 40 MG TAB PO SCH (09:00)
--- NOTE | 2019-10-28 09:15 | Cardiology Progress Note ---
Date of Service October 28, 2019 Assessment & Plan (1) Status post implantation of automatic cardioverter/defibrillator (AICD): She is doing well postop day #1 following ICD implantation. With timing optimization her electrocardiogram looks excellent with a more normal EKG with a 40 ms advanced on the left ventricular pacing lead. The chest x-ray looks good, her creatinine is no higher than it was yesterday and she is stable for discharge. Admission and Anticipated Discharge Date Admission Date: October 27, 2019 Subjective She feels well today, no significant incisional discomfort, no shortness of breath or chest discomfort. No symptoms suggestive of diaphragmatic pacing. Physical Exam Physical Exam: The incision looks clean and dry, there is no swelling or tenderness, no erythema. No bleeding on the dressing. Results & Data ([facility]) Vital Signs (Past 12 Hours) Vital Signs Temp Pulse Resp BP BP Pulse Ox 10/28/19 04:40 36.6 C 91 H 20 112/69 95 10/28/19 00:11 36.5 C 91 H 18 90/55 L 93 Laboratory Results Coagulation 10/27/19 Range/Units 12:24 PT 10.8 (9.0-12.0) Seconds APTT 27.3 (21.0-31.0) Seconds CBC 10/27/19 Range/Units 12:24 WBC 5.52 (4.8-10.8) K/uL RBC 4.30 (4.2-5.4) M/uL Hgb 13.8 (12.0-16.0) g/dL Hct 40.8 (37-47) % Plt Count 217 (130-400) K/uL Neut # (Auto) 3.28 (1.4-6.5) K/uL Lymph # (Auto) 1.74 (1.2-3.4) K/uL [place] # (Auto) 0.37 (0.11-0.59) K/uL Eos # (Auto) 0.12 (0-0.5) K/uL Baso # (Auto) 0.01 (0-0.2) K/uL Comprehensive Metabolic Panel 10/27/19 10/28/19 Range/Units 12:24 07:10 Sodium 142 141 (136-145) mmol/L Potassium 3.7 3.8 (3.5-5.1) mmol/L Chloride 110 H 110 H (98-107) mmol/L Carbon Dioxide 27 25 (21-32) mmol/L BUN 36 H 27 H (7-18) mg/dl Creatinine 0.82 0.78 (0.6-1.2) mg/dl Glucose 137 H 160 H (70-99) mg/dl Calcium 9.9 9.3 (8.5-10.1) mg/dl Intake and Output 10/27/19 10/28/19 10/28/19 22:59 06:59 14:59 Intake Total 475 / 725 250 / 725 Balance 475 / 725 250 / 725 Intake: Oral 475 / 725 250 / 725 Other: # Unmeasured Voids 2 Weight 72 kg Diagnostic Findings Post implant electrocardiogram: Left ventricular only pacing, appropriate complex. Electrocardiographic optimization this morning: Left ventricular pacing only does not give as visually normal complex as a 40 ms advanced on the left ventricular pacing lead. The device was therefore programmed to by V pacing with a 40 ms advance on the LV lead. Telemetry: Normal biventricular pacing Chest x-ray: Good lead position, no pneumothorax PG Care Time/CCT Total # of Minutes Spent Total Time Spent with Patient: Total time spent is greater than 50% in coordination of care (as documented) at patient's floor/unit and/or counseling patient: Coding Level of Care Code 30439 Post Operative Follow-Up Diagnoses Status post implantation of automatic cardioverter/defibrillator (AICD) Z95.810 CPT Codes Implantable Defib Multi lead programming - 02674 ([id number])
--- NOTE | 2019-10-28 15:28 | Electrocardiogram Report ---
Test Reason : Blood Pressure : / mmHG Vent. Rate : 085 BPM Atrial Rate : 085 BPM P-R Int : 178 ms QRS Dur : 126 ms QT Int : 398 ms P-R-T Axes : 033 -60 -30 degrees QTc Int : 473 ms Atrial-sensed ventricular-paced rhythm Abnormal ECG When compared with ECG of 21-APR-2019 11:41, Electronic ventricular pacemaker has replaced Sinus rhythm Confirmed by Nam Arcos ([id number]) on 10/28/2019 3:27:46 PM Referred By: Nam Arcos Confirmed By:Nam Arcos
--- NOTE | 2019-10-28 16:07 | Electrocardiogram Report ---
Test Reason : Blood Pressure : / mmHG Vent. Rate : 121 BPM Atrial Rate : 121 BPM P-R Int : 000 ms QRS Dur : 126 ms QT Int : 372 ms P-R-T Axes : -06 165 015 degrees QTc Int : 528 ms Ventricular-paced rhythm Biventricular pacing with 0 RV-LV offset Abnormal ECG When compared with ECG of 27-OCT-2019 16:11, (unconfirmed) Vent. rate has increased BY 36 BPM Confirmed by Nam Arcos ([id number]) on 10/28/2019 4:07:23 PM Referred By: Nam Arcos Confirmed By:Nam Arcos
--- NOTE | 2019-10-28 16:10 | Electrocardiogram Report ---
Test Reason : Blood Pressure : / mmHG Vent. Rate : 121 BPM Atrial Rate : 121 BPM P-R Int : 000 ms QRS Dur : 128 ms QT Int : 398 ms P-R-T Axes : -07 139 -45 degrees QTc Int : 565 ms Ventricular-paced rhythm Biventricular pacing programmed LV only Abnormal ECG When compared with ECG of 28-OCT-2019 08:52, (unconfirmed) No significant change was found Confirmed by Nam Arcos ([id number]) on 10/28/2019 4:09:32 PM Referred By: Nam Arcos Confirmed By:Nam Arcos
--- NOTE | 2019-10-28 16:16 | Electrocardiogram Report ---
Test Reason : Blood Pressure : / mmHG Vent. Rate : 118 BPM Atrial Rate : 118 BPM P-R Int : 000 ms QRS Dur : 130 ms QT Int : 432 ms P-R-T Axes : -26 -49 -17 degrees QTc Int : 605 ms Ventricular-paced rhythm Biventricular pacing with LV pacing preceding RV by 40 ms Abnormal ECG When compared with ECG of 28-OCT-2019 08:56, (unconfirmed) Vent. rate has decreased BY 3 BPM Confirmed by Nam Arcos ([id number]) on 10/28/2019 4:15:51 PM Referred By: Nam Arcos Confirmed By:Nam Arcos
--- NOTE | 2019-11-01 08:02 | Discharge Summary ---
Date of Service October 28, 2019 Admission HPI Per Admitting Provider This is a an 83-year-old woman with a nonischemic cardiomyopathy which was recently diagnosed. She was feeling poorly since around October 2018 when she had progressive shortness of breath and orthopnea and had an echocardiogram on April 21, 2019 where she had severe left ventricular dysfunction with ejection fraction of 20 to 25% with an apical left ventricular thrombus. She also had mild to moderate mitral regurgitation. She went on to have a cardiac catheterization performed on April 25, 2019 where she was found to have nonobstructive coronary artery disease and borderline pulmonary hypertension. Heart failure medications were initiated, ultimately by July 06, 2019 she was on high-dose Entresto as well as metoprolol succinate 200 mg daily. Her left ventricular ejection fraction on August 11, 2019 showed ejection fraction of 30 to 35%. A follow-up on September 02, 2019 (now on about 4 months of therapy) showed a left ventricular ejection fraction of 25 to 30%. Her left ventricular thrombus resolved and anticoagulation has been discontinued. Her last electrocardiogram showed a left bundle branch block pattern with a QRS duration of 152 ms. There is no reversible cause identified for her cardiomyopathy, although the left bundle branch block could contribute, she is therefore considered for biventricular pacing and possibly ICD implantation for primary prevention of sudden cardiac . She has been feeling relatively well but still has difficulty with exertion. She has not had lightheadedness except when she stands up quickly, no palpitations and denies presyncope or syncope. She has no exertional chest discomfort. She is not having difficulty with edema, she is tolerating her medications well. Admission Exam Per Admitting Provider Constitutional: Alert, cooperative and in no distress. HEENT: Unremarkable Neck: No jugular venous distention, carotid pulses are normal and equal bilaterally without bruits. Pulmonary: Clear to auscultation bilaterally. Cardiac: Regular rhythm with a soft holosystolic murmur at the apex, no gallop or rub. Abdomen: Soft, nontender with normal bowel sounds. Extremities: No edema. Distal pulses intact. Neurologic: No focal findings. Gait is steady but she uses a cane. Skin: No rash, ecchymoses or petechiae. Principal Diagnosis Cardiomyopathy, congestive heart failure Discharge Exam [facility] Mallampati Class: II Respiratory normal respiratory effort, lungs clear to auscultation Cardiovascular RRR, no murmur, no edema Discharge Data Allergies Allergy/AdvReac Type Severity Reaction Status Date / Time Azo-Gantrisin TABS Allergy Unknown Unknown Uncoded 10/20/19 12:59 Dust Mite Allergy Unknown Unknown Uncoded 10/20/19 12:59 Statins Allergy Unknown Unknown Uncoded 10/20/19 12:59 Sulfa Drugs Allergy Unknown Unknown Uncoded 10/20/19 12:59 Procedures Performed Operation Date: 10/27/19 12:00 Actual Procedures s Lead LV (No Priopr Implant) - Nam Arcos MD p ICD Insertion Single or Dual - Nam Arcos MD Ordered Studies 10/27/19 06:40 CL Cath Imgs for PACS use only Routine Hospital Course (1) Status post implantation of automatic cardioverter/defibrillator (AICD): She is doing well postop day #1 following ICD implantation. With timing optimization her electrocardiogram looks excellent with a more normal EKG with a 40 ms advanced on the left ventricular pacing lead. The chest x-ray looks good, her creatinine is no higher than it was yesterday and she is stable for discharge. Total Time Total Time Spent Total Time Spent (In Minutes): 40 Total Time Includes: Examination of the Patient, Discharge Planning, Medication Reconciliation and Other (Electrocardiographic optimization of VV timing) Discharge Plan Discharge Items Patient Disposition: Home - Self-Care Reason For Visit: BIVICD INSERTION Discharge Diagnosis: Post ICD implantation Activity: Per Instructions section Bathing: Keep incision dry Driving/Machine Use: No limitations Non-emergency contact: Primary Care Provider Call non-emergency contact if: you have any medication questions Follow-up/Referrals: Nam Arcos MD [Physician] - 10/31/19 10:00 am Nixon Ordoñez III, MD [Primary Care Provider] - Diet: Heart Healthy Addtl Attending Provider Instructions: ACTIVITY RECOMMENDATIONS: * Do not raise affected arm over head for 2 weeks. SPECIAL CARE INSTRUCTIONS: * If bleeding occurs, apply direct pressure to area for 5 minutes. * Call your doctor if you have severe pain, fever, drainage or bleeding at site. * Keep dressing on and dry for 48 hours then remove. * Keep any scheduled doctor's appointment. * Implant Card - hand held device with website information given. SKIN IRRITATION: * You may experience some redness and/or swelling in the area where radiation was administered. If any skin irritation occurs, please contact your family physician. FOLLOW UP VISIT: Keep any scheduled doctor appointments. Pending Studies at Discharge: No Stand-Alone Forms: My [facility], Smoking Cessation Medications and DC Order Prescriptions: Continued (DME) blood-glucose meter [OneTouch Verio Flex Start] Kit See Rx Instructions .ROUTE .MEDSUPPLY Qty: 1 RF: 0 (DME) OneTouch Verio Strip See Rx Instructions .ROUTE .MEDSUPPLY Qty: 200 RF: 3 (DME) lancets [OneTouch Delica Lancets] 33 gauge misc See Rx Instructions .ROUTE .MEDSUPPLY Qty: 200 RF: 3 (DME) Rollator Walker Qty: 1 RF: 0 metoprolol succinate 200 mg tablet extended release 24 hr 200 mg PO QAM Qty: 90 RF: 3 metformin 500 mg tablet 500 mg PO BID RF: 0 potassium chloride [Klor-Con M20] 20 mEq tablet,ER particles/crystals 20 meq PO BID Qty: 60 RF: 0 furosemide 80 mg tablet 40 mg PO QAM Qty: 90 RF: 3 Entresto 97-103 mg tablet 1 tab PO BID Qty: 180 RF: 3 Discharge Orders: Discharge Order (Routine); Ordered 10/28/19 Ordered By: Nam Arcos Admission Data Admit Date/Time: 10/27/19 14:09 Attending Provider: Nam Arcos Admit Provider: Nam Arcos Primary Care Provider: Nixon Ordoñez III Other Interventions: Discharge Summary Assessment (RN) Last Done: 10/28/19 09:48 DC Date/Time DO NOT enter until pt leaves facility: 10/28/19 13:49 Coding Level of Care Code 65071 OBS Care - Discharge Diagnoses Status post implantation of automatic cardioverter/defibrillator (AICD) Z95.810
== END 2019-10-28 13:49 | disposition home or self-care (01) ==
LOC: 2S 10:32 → EP 10:32
PROC: EPB.ICD (2019-10-27 12:00)

== ENCOUNTER 2019-11-08 07:28 | Inpatient (IN) ==
[2019-11-08] MEDS ORDERED: fentaNYL citrate 100 MCG/2 ML VIAL IV PRN (07:35)
[2019-11-08] MEDS ORDERED: ONDANSETRON INJ 2 MG/ML 2 ML VIAL IV STA (07:35)
--- NOTE | 2019-11-08 07:44 | Emergency Department Note ---
History of Present Illness General Chief complaint: Neck Injury/Pain Stated complaint: BACK PAIN Time Seen by Provider: 11/08/19 07:34 History of Present Illness Maximum Pain Intensity: 6 The patient is an 84-year-old female who presented to the emergency department via ALS for an evaluation of back pain and generalized weakness. The patient states that she has had generalized weakness for approximately 1 year. She was thought to be having symptoms requiring a defibrillator pacemaker. The patient had this procedure done earlier this month. The patient denies having any chest pain. She does complain of neck pain. She denies having any low back pain but does have some flank pain at times. Mostly she states that she presented to the emergency department this morning because of neck pain. She states that she feels pain down both arms. She states the pain is worsened with ambulation as well as movement of her head. She denies having any recent falls or trauma. She denies having any leg swelling. She did have an episode of diarrhea last week and some abdominal pain. She states the abdominal pain is significantly improved but still has some crampy abdominal pain with palpation but no pain at this time. She denies having any nausea or vomiting currently. She is had no fever or cough. She has had no recent traveling. The patient states that she has been compliant with her outpatient medications including blood thinners. The patient has not been seen by her primary care physician for these complaints. Home Medications Home Medications Medication Instructions Recorded Confirmed Type furosemide 80 mg tablet 40 mg PO QAM #90 tab 06/29/19 11/08/19 Rx metformin 500 mg tablet 500 mg PO UD tab 06/29/19 11/08/19 History sacubitril 97 mg-valsartan 103 mg 1 tab PO BID #180 tab 06/29/19 11/08/19 Rx tablet metoprolol succinate 200 mg 200 mg PO QAM #90 tab 07/06/19 11/08/19 Rx tablet,extended release 24 hr Rollator Walker #1 ea 09/19/19 10/31/19 Rx blood sugar diagnostic #200 ea 09/19/19 10/31/19 Rx blood-glucose meter #1 ea 09/19/19 10/31/19 Rx lancets 33 gauge #200 ea 09/19/19 10/31/19 Rx potassium chloride 10 meq PO BID 11/08/19 11/08/19 History Allergies Allergy/AdvReac Type Severity Reaction Status Date / Time Azo-Gantrisin TABS Allergy Unknown Unknown Uncoded 11/08/19 08:55 Dust Mite Allergy Unknown Unknown Uncoded 11/08/19 08:55 Statins Allergy Unknown Unknown Uncoded 11/08/19 08:55 Sulfa Drugs Allergy Unknown Unknown Uncoded 11/08/19 08:55 Past Med/Surg History Medical History Anxiety (Acute) Arthralgia of multiple sites (Acute) Chronic sinusitis (Acute) 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) Cough (Acute) Diabetes mellitus type 2, uncontrolled (Acute) Diabetes mellitus with albuminuria (Acute) Esophageal reflux (Acute) Hematuria (Acute) Hypercholesteremia (Chronic) Hypercholesterolemia (Chronic) Hypertension (Chronic) Hypertension (Chronic) Low back pain (Acute) Microalbuminuria (Acute) Onychomycosis of toenail (Acute) Pain in thoracic spine (Acute) Panic disorder without agoraphobia (Acute) Surgical History History of colonoscopy History of hysterectomy Family History Mother Diabetes Brother Diabetes Hypertension Pure hypercholesterolemia Other Family history non-contributory Social History (Updated 11/08/19 @ 11:53 by Lorraine Durham MA) Preferred Language: Yoruba Communication Ability: Effective Watch Manufacturing Supervisor Required: No Beliefs That Will Affect Care: None Current Living Situation: Alone current occupational status: retired Feels Safe at Home: Yes Smoking Status: Never smoker Hx Alcohol Use: No Hx Substance Use: No Review of Systems See HPI for pertinent positives & negatives. and A total of 10 systems reviewed and were otherwise negative Physical Exam Vital Signs Vital Signs - 24 hr 11/08/19 07:35 11/08/19 07:36 11/08/19 09:28 Temperature 36.9 C Temperature Source Oral Pulse Rate 105 H Pulse Rate [Apical] 86 Respiratory Rate 18 18 Blood Pressure 152/72 H Blood Pressure [Left Arm] 148/79 H Blood Pressure Mean 98 Blood Pressure Mean [Left Arm] 102 Pulse Oximetry 96 95 98 Oxygen Delivery Method Room Air Room Air Nasal Cannula Oxygen Flow Rate 2 Sepsis Recent Fever Within 48 Hours No Sepsis New/Unexplained Change in Mental Status No Sepsis Action Taken by Nursing No Action Required 11/08/19 11:00 11/08/19 13:00 Temperature Temperature Source Pulse Rate Pulse Rate [Apical] 85 88 Respiratory Rate 18 18 Blood Pressure Blood Pressure [Left Arm] 118/59 L 128/55 L Blood Pressure Mean Blood Pressure Mean [Left Arm] 78 79 Pulse Oximetry 100 99 Oxygen Delivery Method Room Air Room Air Oxygen Flow Rate 2 2 Sepsis Recent Fever Within 48 Hours Sepsis New/Unexplained Change in Mental Status Sepsis Action Taken by Nursing GENERAL: The patient is awake and alert. She does not appear to be anxious but does appear to be somewhat uncomfortable. EYES: The conjunctivae are clear. The pupils are round and reactive. EARS, NOSE, MOUTH AND THROAT: The nose is without any evidence of any deformity. Mucous membranes are moist. Tongue is midline. NECK: The patient has full range of motion in her neck. She does have some palpable midline tenderness. There is no significant muscle spasm. There is no meningismus. RESPIRATORY: Normal respiratory effort is noted there is no evidence of wheezing rhonchi or rales CARDIOVASCULAR: Tachycardic rate with regular rhythm was noted. There was no definite murmur. GASTROINTESTINAL: The abdomen is soft and nondistended. There is no guarding or rigidity. BACK: No midline tenderness or or step-off noted range of motion in flexion extension as well as rotation no signs of muscle spasm noted MUSCULOSKELETAL/EXTREMITIES: There is no evidence of gross deformity full range of motion is noted in the hips and shoulders. SKIN: There is no obvious evidence of any rash. Trace pedal edema was noted bilaterally. There is slight ecchymosis over the recent pacemaker implantation site in the left anterior chest wall. There is no erythema drainage or de hiscence. NEUROLOGIC: Patient is awake alert and oriented x3. Course Course 0920: The patient was resting comfortably and felt much better after pain medication. 0925: traffic monitor specialist revealed paced rhythm at 102 bpm. 1245: I discussed this case with Dominga who is covering for the [facility] hospitalist group. They have agreed to evaluate the patient in the emergency department for further management and disposition. Administered Medications Fentanyl Citrate (Fentanyl Citrate) 50 mcg IV Q15M PRN PRN Reason: Pain Stop: 11/22/19 07:34 Last Admin: 11/08/19 08:26 Dose: 50 mcg Documented by: [id number] Discontinued Medications Ondansetron HCl (Zofran) 4 mg IV NOW STA Stop: 11/08/19 07:36 Last Admin: 11/08/19 08:26 Dose: 4 mg Documented by: [id number] Medical Decision Making Differential Diagnosis Infection, dehydration, metabolic abnormality, hypo/hyperglycemia, electrolyte disturbance, anemia, hypoxia, cardiac sources, intracerebral event, toxicologic, neurologic, as well as other pathologies. Medical Records Attestation: I reviewed the patient's medical records. Home Medications Current Medication List: was personally reviewed by me Laboratory Data Attestation: I reviewed the patient's lab results. Result diagrams: 11/08/19 08:15 11/08/19 08:15 Lab Results 11/08/19 11/08/19 11/08/19 Range/Units 08:15 08:15 08:15 WBC 9.45 (4.8-10.8) K/uL RBC 3.38 L (4.2-5.4) M/uL Hgb 10.7 L (12.0-16.0) g/dL Hct 32.1 L (37-47) % MCV 95.0 (80-100) fL MCH 31.7 (25-34) pg MCHC 33.3 (32-36) g/dL RDW Std Deviation 41.3 (36.4-46.3) fL RDW Coeff of Shaka 12.0 (11.5-14.5) % Plt Count 230 (130-400) K/uL MPV 10.0 (7.4-10.4) fL Immature Gran % (Auto) 0.1 % Neut % (Auto) 78.0 % Lymph % (Auto) 15.4 % Cotton % (Auto) 6.2 % Eos % (Auto) 0.2 % Baso % (Auto) 0.1 % Immature Gran # (Auto) 0.01 (0.00-0.02) K/uL Neut # (Auto) 7.36 H (1.4-6.5) K/uL Lymph # (Auto) 1.46 (1.2-3.4) K/uL Cotton # (Auto) 0.59 (0.11-0.59) K/uL Eos # (Auto) 0.02 (0-0.5) K/uL Baso # (Auto) 0.01 (0-0.2) K/uL PT 11.4 (9.0-12.0) Seconds INR 1.1 (0.9-1.1) APTT 28.5 (21.0-31.0) Seconds PTT Ratio 1.0 Sodium 139 (136-145) mmol/L Potassium 3.8 (3.5-5.1) mmol/L Chloride 105 (98-107) mmol/L Carbon Dioxide 26 (21-32) mmol/L Anion Gap 8.0 (3-11) BUN 31 H (7-18) mg/dl Creatinine 0.94 (0.6-1.2) mg/dl Est Cr Clr Drug Dosing 45.1 ml/min Est GFR ( Amer) 65.5 Est GFR (Non-Af Amer) 56.5 BUN/Creatinine Ratio 33.2 H (10-20) Glucose 213 H (70-99) mg/dl Calcium 9.6 (8.5-10.1) mg/dl Total Bilirubin 0.4 (0.2-1) mg/dl AST 16 (15-37) U/L ALT 21 (12-78) U/L Alkaline Phosphatase 67 (45-117) U/L Troponin I < 0.015 (0-0.045) ng/ml Total Protein 7.7 (6.4-8.2) gm/dl Albumin 2.8 L (3.4-5.0) gm/dl Globulin 4.9 H (2.5-4.0) gm/dl Albumin/Globulin Ratio 0.6 L (0.9-2) Lipase 61 L (73-393) U/L Imaging Data Radiologist's Impression: XR chest 1V portable CLINICAL HISTORY: neck pain COMPARISON STUDY: 10/28/2019 FINDINGS: The lungs remain clear. Diaphragms are smooth. Permanent bipolar cardiac pacemaker/defibrillator with leads in good position. IMPRESSION: No acute process. The lungs are clear. ACT 112: Negative or not required by law. The above report was generated using voice recognition software. It may contain grammatical, syntax or spelling errors. Electronically signed by: Dwaine Wilkins M.D. 11/08/2019 7:56 AM [facility] CLINICAL HISTORY: Abdominal pain. COMPARISON STUDY: None. FINDINGS: Pacer/AICD leads are partially imaged. The bowel gas pattern is normal. Pelvic calcifications favor phleboliths. IMPRESSION: No evidence for a bowel obstruction. ACT 112: Negative or not required by law. Electronically signed by: Ken Sahu M.D. 11/08/2019 7:56 AM Dictated: 11/08/19754 Transcribed: 11/08/19754 ECG Data Attestation: I personally reviewed and interpreted this ECG as follows: Indication: + back/shoulder pain Rate (beats per minute): 100 Additional Comments: EKG was obtained in the emergency department. My interpretation is atrial sensed ventricular paced rhythm at 101 bpm. There were no PVCs. There were no campo beats. High lateral Q waves were noted with inferior and low lateral ST segment depressions. This was compared to a tracing from October 28, 2019. No significant change was noted. Blood Pressure Blood Pressure Findings: Normal blood pressure MDM Narrative The patient is an 84-year-old female who presented to the emergency department with multiple complaints. She complains of weakness as well as shoulder discomfort. She also had neck pain which was partially reproducible. The patient also complained of generalized weakness. She states her symptoms have been ongoing for quite some time but appear to be worsened over the last few days. The patient according to her family members has had decreased p.o. intake. I discussed the patient's laboratory and radiographic studies with her. She was reevaluated multiple times. She was not significantly improved. Given the patient's abnormal EKG, I discussed her case with the on-call [facility] hospitalist group. She may require further inpatient work-up for possible cardiac abnormality or possibly other causes for her neck pain. Impression & Plan Acute neck pain, Abnormal ECG Discharge Plan Visit Data Chief Complaint: Neck Injury/Pain Stated Complaint: BACK PAIN ED Provider: Vick Bob Discharge Problem: Acute neck pain, Abnormal ECG Patient Disposition: Being Evaluated by Hospitalist Condition: Good Discharge Instructions Interventions: ED Discharge Assessment Last Done: 11/08/19 14:05 Forms Stand Alone Forms: My [facility] Onset Nonabox Prescriptions Prescriptions: No Action (DME) blood-glucose meter [OneTouch Verio Flex Start] Kit See Rx Instructions .ROUTE .MEDSUPPLY Qty: 1 RF: 0 (DME) OneTouch Verio Strip See Rx Instructions .ROUTE .MEDSUPPLY Qty: 200 RF: 3 (DME) lancets [OneTouch Delica Lancets] 33 gauge misc See Rx Instructions .ROUTE .MEDSUPPLY Qty: 200 RF: 3 (DME) Rollator Walker Qty: 1 RF: 0 metoprolol succinate 200 mg tablet extended release 24 hr 200 mg PO QAM Qty: 90 RF: 3 metformin 500 mg tablet 500 mg PO UD RF: 0 furosemide 80 mg tablet 40 mg PO QAM Qty: 90 RF: 3 Entresto 97-103 mg tablet 1 tab PO BID Qty: 180 RF: 3 potassium chloride 10 mEq tablet extended release 10 meq PO BID RF: 0 Referrals Referrals: Nixon Ordoñez III, MD [Primary Care Provider] -
--- NOTE | 2019-11-08 07:57 | XRay Report ---
XR chest 1V portable CLINICAL HISTORY: neck pain COMPARISON STUDY: 10/28/2019 FINDINGS: The lungs remain clear. Diaphragms are smooth. Permanent bipolar cardiac pacemaker/defibril lator with leads in good position. IMPRESSION: No acute process. The lungs are clear. ACT 112: Negative or not required by law. The above report was generated using voice recognition software. It may contain grammatical, syntax or spelling errors. Electronically signed by: Dwaine Wilkins M.D. 11/08/2019 7:56 AM
--- NOTE | 2019-11-08 07:57 | XRay Report ---
KUB CLINICAL HISTORY: Abdominal pain. COMPARISON STUDY: None. FINDINGS: Pacer/AICD leads are partially imaged. The bowel gas pattern is normal. Pelvic calcificatio ns favor phleboliths. IMPRESSION: No evidence for a bowel obstruction. ACT 112: Negative or not required by law. Electronically signed by: Ken Sahu M.D. 11/08/2019 7:56 AM
[2019-11-08 08:26] LABS: Basophils # (auto) 0.01 K/uL (0-0.2); Basophils % (auto) 0.1 %; Eosinophils # (auto) 0.02 K/uL (0-0.5); Eosinophils % (auto) 0.2 %; Hematocrit (blood only) 32.1 % (37-47); Hemoglobin 10.7 g/dL (12.0-16.0); Immature Granulocytes # (auto) 0.01 K/uL (0.00-0.02); Immature Granulocytes % (auto) 0.1 %; Lymphocytes # (auto) 1.46 K/uL (1.2-3.4); Lymphocytes % (auto) 15.4 %; Mean Corpuscular Hemoglobin 31.7 pg (25-34); Mean Corpuscular Hgb Conc 33.3 g/dL (32-36); Monocytes # (auto) 0.59 K/uL (0.11-0.59); Monocytes % (auto) 6.2 %; Neutrophils # (auto) 7.36 K/uL (1.4-6.5); Platelet Count 230 K/uL (130-400); RDW Standard Deviation 41.3 fL (36.4-46.3); Red Blood Count 3.38 M/uL (4.2-5.4); White Blood Count 9.45 K/uL (4.8-10.8)
[2019-11-08 08:38] LABS: INR 1.1 (0.9-1.1); Partial Thromboplastin Time 28.5 Seconds (21.0-31.0); Prothrombin Time 11.4 Seconds (9.0-12.0)
[2019-11-08 08:42] LABS: Alanine Aminotransferase 21 U/L (12-78); Albumin Level 2.8 gm/dl (3.4-5.0); Aspartate Aminotransferase 16 U/L (15-37); BUN Creatinine Ratio 33.2 (10-20); Blood Urea Nitrogen 31 mg/dl (7-18); Calcium 9.6 mg/dl (8.5-10.1); Carbon Dioxide 26 mmol/L (21-32); Chloride 105 mmol/L (98-107); Creatinine Clr Calc Pharmacy 45.1 ml/min; Est GFR (African American) 65.5; Est GFR (Non-African American) 56.5; Glucose 213 mg/dl (70-99); Lipase 61 U/L (73-393); Potassium 3.8 mmol/L (3.5-5.1); Sodium 139 mmol/L (136-145)
[2019-11-08 08:47] LABS: Albumin Globulin Ratio 0.6 (0.9-2); Alkaline Phosphatase 67 U/L (45-117); Bilirubin,Total 0.4 mg/dl (0.2-1); Globulin 4.9 gm/dl (2.5-4.0); Total Protein 7.7 gm/dl (6.4-8.2); Troponin I < 0.015 ng/ml (0-0.045)
--- NOTE | 2019-11-08 11:53 | Electrocardiogram Report ---
Test Reason : Blood Pressure : / mmHG Vent. Rate : 101 BPM Atrial Rate : 101 BPM P-R Int : 122 ms QRS Dur : 130 ms QT Int : 394 ms P-R-T Axes : 034 -07 023 degrees QTc Int : 510 ms Atrial-sensed ventricular-paced rhythm Abnormal ECG When compared with ECG of 28-OCT-2019 09:01, Vent. rate has decreased BY 17 BPM Confirmed by Conner Tian ([id number]) on 11/08/2019 11:53:06 AM Referred By: REFERRED SELF Confirmed By:Carter Tian
--- NOTE | 2019-11-08 12:53 | History & Physical Report ---
Date of Service November 08, 2019 Assessment & Plan (1) Acute neck pain: -Admit to [facility] with telemetry -Check CT of the neck to rule out herniated disc -Possibly musculoskeletal since neck pain has been present intermittently for 1 week since pacemaker insertion, consider torticollis, muscular strain during procedure -Voltaren gel, baclofen low-dose, [place], Tylenol, heating pad for pain relief - had received fentanyl in ER with some relief. (2) Status post implantation of automatic cardioverter/defibrillator (AICD): -Underwent procedure on 11/01/2019, has not yet seen cardiology and follow up as outpatient -Cardiology consulted-Dr. Tian -Trend troponins x2 more sets, initial was negative with intermittent chest pain in location of the pain itself although unlikely ACS -EKG reviewed which is essentially unchanged compared to previous -Continue Lasix 40 mg QAM, metoprolol succinate 200 mg QAM, Entresto BID--not take morning medications today (3) LV (left ventricular) mural thrombus: (4) Nonischemic cardiomyopathy: (5) CAD (coronary artery disease), [place] coronary artery: (6) LBBB (left bundle branch block): (7) Chronic systolic (congestive) heart failure: -Continue medications as above -We will hold off on 2D echo at this time, unlikely that there would be a significant change in echocardiogram only 1 week after pacemaker insertion compared to last one done in August 2019. Will await cardiology recommendations and order if recommended. (8) Hypertension: - BP well controlled, continue meds as above. (9) Diabetes mellitus type 2, uncontrolled: -Last A1c = 6.01/2019, recheck now -Glucose elevated at 213 upon admission, holding metformin, will start on ISS with Accu-Cheks AC at bedtime -Allow HH/Dm diet (10) Hypercholesterolemia: -Last fasting lipid panel was done in April 2019, well controlled, not on statin therapy (11) Anemia: -Hemoglobin of 10.7 on admission, on 10/27/2019 was 13.8. -Check fecal occult blood to rule out GI bleed -Patient is not on any blood thinning medications -Last TSH checked in April and was normal at 2.640. 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 She had most recently had an echocardiogram which was found to show an EF of 25-30% and underwent elective pacemaker/defibrillator placement on 11/01/2019. Since the pacemaker/defibrillator placement, she has had progressive weakness, shortness of breath with exertional activities, fatigue and a left-sided neck pain. She reports that pain goes down into her left arm as well as up into the left side of her neck and into her jaw and it is intermittent. She states this began approximately 1 week ago after the surgical procedure. She has taken an occasional Tylenol which aids in relief of the pain. She reports having one episode of diarrhea 2 days ago, took an Imodium and it stopped. Initially the patient's daughter was living with her right after her surgery, but only stayed for a few days. She has been social distancing other than her daughter being in her home to help care for her. Patient reports going to the grocery store yesterday to fish bait picker 3 items, but felt so fatigued that she could barely check out and get back out to her car. She also feels significantly weak and has difficulty getting up out of a chair, and when she does she intermittently feels lightheaded. Denies any recent falls, LOC. She does not feel that she could go home and care for herself currently. Denies any fevers, sweats or chills or any other acute complaints. Patient did not take her morning medication today due to weakness. Allergies Allergy/AdvReac Type Severity Reaction Status Date / Time Azo-Gantrisin TABS Allergy Unknown Unknown Uncoded 11/08/19 08:55 Dust Mite Allergy Unknown Unknown Uncoded 11/08/19 08:55 Statins Allergy Unknown Unknown Uncoded 11/08/19 08:55 Sulfa Drugs Allergy Unknown Unknown Uncoded 11/08/19 08:55 Home Medications Home Medications Medication Instructions Recorded Confirmed Type furosemide 80 mg tablet 40 mg PO QAM #90 tab 06/29/19 11/08/19 Rx metformin 500 mg tablet 500 mg PO UD tab 06/29/19 11/08/19 History sacubitril 97 mg-valsartan 103 mg 1 tab PO BID #180 tab 06/29/19 11/08/19 Rx tablet metoprolol succinate 200 mg 200 mg PO QAM #90 tab 07/06/19 11/08/19 Rx tablet,extended release 24 hr Rollator Walker #1 ea 09/19/19 10/31/19 Rx blood sugar diagnostic #200 ea 09/19/19 10/31/19 Rx blood-glucose meter #1 ea 09/19/19 10/31/19 Rx lancets 33 gauge #200 ea 09/19/19 10/31/19 Rx potassium chloride 10 meq PO BID 11/08/19 11/08/19 History Past Med/Surg History Medical History Anxiety (Acute) Arthralgia of multiple sites (Acute) Chronic sinusitis (Acute) 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) Cough (Acute) Diabetes mellitus type 2, uncontrolled (Acute) Diabetes mellitus with albuminuria (Acute) Esophageal reflux (Acute) Hematuria (Acute) Hypercholesteremia (Chronic) Hypercholesterolemia (Chronic) Hypertension (Chronic) Hypertension (Chronic) Low back pain (Acute) Microalbuminuria (Acute) Onychomycosis of toenail (Acute) Pain in thoracic spine (Acute) Panic disorder without agoraphobia (Acute) Surgical History History of colonoscopy History of hysterectomy Family History Mother Diabetes Brother Diabetes Hypertension Pure hypercholesterolemia Other Family history non-contributory Social History (Updated 11/08/19 @ 11:53 by Lorraine Durham MA) Preferred Language: Kyrgyz Communication Ability: Effective [employer] Required: No Beliefs That Will Affect Care: None Current Living Situation: Family Current Living Situation Comment: lives with daughter current occupational status: retired Other Information That Helps Us Care for You: No Feels Safe at Home: Yes Safety Concerns: Feels Safe At This Time Smoking Status: Never smoker Do You Dip or Chew Tobacco: No ; Second Hand Exposure: No ; Tobacco Cessation Education Requested by Patient: No Hx Alcohol Use: No Hx Substance Use: No Review of Systems Review of Systems: Constitutional: No fever, sweats or chills, + severe fatigue Eyes: No diplopia, no worsening or blurred vision ENT: normal hearing, no trouble swallowing Neck: Left-sided neck pain radiating down into the left arm and up into the jaw worse with turning head to towards the left Respiratory: No cough, sputum, dyspnea at rest, + dyspnea on exertion Cardiovascular: No chest pain, tightness or palpitations Abdomen: As per HPI. No pain, nausea, vomiting, diarrhea or constipation Musculoskeletal: No joint pain, calf pain, swelling Neurologic: + Generalized weakness, no numbness/tingling, or balance problems, uses a cane for ambulation Psychiatric: No anxiety or depression Skin: No rash or itch Physical Exam Physical Exam: General: awake, alert, no apparent distress, + fatigued Head: Normocephalic, atraumatic ENT: PERRL, EOMI, no pharyngeal exudate, + mucous membranes slightly dry Chest: Clear to auscultation, on 2L via NC, + faint crackles bibasilarly otherwise no adventitious breath sounds Cardiac: + Left chest wall incision site appears to be healing well, no surrounding erythema, no purulent drainage, nontender with palpation over pacemaker, regular rate and rhythm, HR = 90 at bedside, no murmur, no JVD, normal peripheral pulses, good capillary refill Abdominal: NABS x 4 quadrants, soft, nondistended, nontender to palpation, no rebound, guarding or tenderness Extremities: Normal inspection, no peripheral edema or erythema, calfs nontender to palpation Psych: Normal mood and affect Neuro: AAO x 3, strength intact bilaterally and rated 5/5, + pain elicited with neck external rotation to the left, no motor deficits, speech is clear, no peripheral sensory deficits Skin: no rash or erythema Results & Data Results & Data ([facility]) Vital Signs (Past 12 Hours) Vital Signs Temp Pulse Pulse Resp BP BP Pulse Ox 11/08/19 11:00 85 18 118/59 L 100 11/08/19 09:28 86 18 148/79 H 98 11/08/19 07:36 36.9 C 105 H 18 152/72 H 95 11/08/19 07:35 96 Diagnostic Findings KUB CLINICAL HISTORY: Abdominal pain. COMPARISON STUDY: None. FINDINGS: Pacer/AICD leads are partially imaged. The bowel gas pattern is normal. Pelvic calcifications favor phleboliths. IMPRESSION: No evidence for a bowel obstruction. ACT 112: Negative or not required by law. Electronically signed by: Ken Sahu M.D. 11/08/2019 7:56 AM Dictated: 11/08/19754 Transcribed: 11/08/19754 XR chest 1V portable CLINICAL HISTORY: neck pain COMPARISON STUDY: 10/28/2019 FINDINGS: The lungs remain clear. Diaphragms are smooth. Permanent bipolar cardiac pacemaker/defibrillator with leads in good position. IMPRESSION: No acute process. The lungs are clear. ACT 112: Negative or not required by law. The above report was generated using voice recognition software. It may contain grammatical, syntax or spelling errors. Electronically signed by: Dwaine Wilkins M.D. 11/08/2019 7:56 AM ECG Additional Comments: 08-NOV-2019 07:29:44 [facility]-EDSTAT ROUTINE RETRIEVAL Atrial-sensed ventricular-paced rhythm Abnormal ECG When compared with ECG of 28-OCT-2019 09:01, Vent. rate has decreased BY 17 BPM Confirmed by Conner Tian ([id number]) on 11/08/2019 11:53:06 AM 25mm/s 10mm/mV 150Hz 9.0.9 12SL 241 FLORENCIO: 13 Referred by: REFERRED SELF Confirmed By: Conner Tian Vent. rate 101 BPM AK interval 122 ms QRS duration 130 ms QT/QTc 394/510 ms P-R-T axes 34 -7 23 Code Status & VTE Plan Code Status DNR-discussed with the patient at bedside Supervising Physician Co-Signing Physician Notes Attending Attestation & Admission Note: Pt seen/examined, chart reviewed, admission care plan d/w RODRICK Rodríguez. I agree w/ the gomez components of her documentation. Pleasant 84yo female with recent AICD placement for cardiomyopathy and EF <30%, h/o LBBB, CAD, HTN, T2DM -- presenting with multiple complaints. 1. main complaint that brought her to ER -- neck pain x 1 week; started after her AICD placement. Hurts to turn the neck, and also reporting b/l arm pains radiating from the posterior neck and down the arms to the elbows. No paresthesias. No hand symptoms. 2. "exhaustion" and fatigue for 1 year, worse recently. Present all the time. 3. difficulty rising from a chair or getting out of bed. Has hard time moving her legs at times. This has been present for months or longer. 4. pain in numerous locations but especially the neck and hip regions. 5. chronic cough x 1 year No fevers or chills. PMH, PSH, allergies, meds, sochx, famhx, ros - reviewed VSS, afebrile gen - nontoxic, a/o x 3 mouth - MMM neck - very tender over posterior neck with any active or passive ROM; ROM is restricted due to pain chest - AICD site left upper chest clean, intact, no cellulitis/drainage/hematoma heart - RRR, s1 s2 lungs - CTA b/l abd - soft NT ND BS+ ext - no edema neuro - strength 5/5 RUE, b/l LEs; handgrip b/l hands 5/5 DTRs slightly brisk upper and lower exts labs - WBC 9.4 Hb 10.7, down from 13.8 on 10/27/19 BMP wnl cxr, KUB x-ray wnl EKG - pacing A/P: 1. severe neck pain in the absence of trauma or injury with b/l arm pain x 1 week 2. chronic fatigue/malaise 3. chronic weakness with rising from chair or getting out of bed 4. chronic cough with negative chest x-ray 5. recent AICD placement for chronic systolic CHF/cardiomyopathy 6. new, mild normocytic anemia STAT CT cervical spine -- r/o fracture, r/o spinal stenosis, r/o other pathology; consider MRI cervical spine if CT nondiagnostic and if concern for infectious process check sed rate and crp -- some of her chronic complaints could be consistent with PMR anemia - check fecal occult blood; repeat CBC in am consider Fe studies, b12, folate as well cough - negative cxr - O2 sats wnl in ER; chronic for 1 year; outpatient f/u Noah Rojas MD PG Care Time/CCT Total # of Minutes Spent Total Time Spent with Patient: Total time spent is greater than 50% in coordination of care (as documented) at patient's floor/unit and/or counseling patient: Coding Level of Care Code 48090 OBS Care - Level 3 Diagnoses Acute neck pain M54.2 Status post implantation of automatic cardioverter/defibrillator (AICD) Z95.810 LV (left ventricular) mural thrombus I51.3 Nonischemic cardiomyopathy I42.8 CAD (coronary artery disease), [place] coronary artery I25.10 LBBB (left bundle branch block) I44.7 Chronic systolic (congestive) heart failure I50.22 Hypertension I10 Diabetes mellitus type 2, uncontrolled E11.65 Hypercholesterolemia E78.00 Anemia D64.9 Arthralgia of multiple sites M25.50 DVT prophylaxis Z29.9
[2019-11-08] MEDS ORDERED: BACLOFEN 10 MG TAB PO PRN (15:56)
[2019-11-08] MEDS ORDERED: GLUCOSE 10 TABS/TUBE PO PRN (15:56)
[2019-11-08] MEDS ORDERED: CARBOHYDRATES FOR HYPOGLYCEMIA PO PRN (15:56)
[2019-11-08] MEDS ORDERED: GLUCAGON FOR INJ 1 MG VIAL SQ PRN (15:56)
[2019-11-08] MEDS ORDERED: ACETAMINOPHEN 325 MG TAB PO PRN (15:56)
[2019-11-08] MEDS ORDERED: GLUCOSE 40% GEL 15 GM TUBE PO PRN (15:56)
[2019-11-08] MEDS ORDERED: ONDANSETRON INJ 2 MG/ML 2 ML VIAL IV PRN (15:56)
[2019-11-08] MEDS ORDERED: DEXTROSE 50% 50 ML SYRINGE IV PRN (15:56)
[2019-11-08 17:11] LABS: Troponin I < 0.015 ng/ml (0-0.045)
[2019-11-08] MEDS: INSULIN ASPART 100 UNITS/ML 3 ML PEN SC SCH ×2 (17:30→20:41)
[2019-11-08] MEDS: DICLOFENAC SOD 1% GEL 100 GM TUBE EXT SCH ×2 (17:33→20:39)
[2019-11-08] MEDS: HYDROCODONE/ACETAMOPHEN 5/325MG TAB PO PRN (19:26)
[2019-11-08] MEDS: POTASSIUM CHLORIDE 10 MEQ TABCR PO SCH (20:39)
[2019-11-08] MEDS: SACUBITRIL-VALSARTAN 97-103 MG TAB PO SCH (20:39)
--- NOTE | 2019-11-08 20:45 | CT Scan Report ---
CT cervical spine wo con CT DOSE: 231.36 mGy.cm CLINICAL HISTORY: 84 years-old Female with R/o disc herniation, severe neck pain. Acute severe neck pain without reported trauma COMPARISON: Chest radiographs 10/28/2019. TECHNIQUE: Multiple axial CT images of the cervical spine were obtained without contrast. A dose low ering technique was utilized adhering to the principles of ALARA. FINDINGS: Demineralized appearance of the bones. C1-C2 articulation appears anatomic. No acute fractu re or subluxation identified. Nuchal ligament calcifications are noted. Moderate multilevel facet art hrosis. Moderate to severe disc space narrowing at the C4-C5 C6-C7 levels. Multilevel moderate spondy litic spurring with posterior disc osteophyte complex formations, largest at the C4-C5 level which re sults in severe right lateral recess and central canal stenosis. Multilevel foraminal narrowing is al so present. Mastoid air cells are generally clear. No pneumothorax. 1.3 cm heterogeneous lower inferior pole right thyroid nodule. Left subclavian pacer . Nonspecific stranding surrounds the left internal jugular vein and subcutaneous and deep tissues of the left neck. Scattered and prominent left cervical chain and supraclavicular lymph nodes measure u p to 8 mm. IMPRESSION: 1. No acute cervical spine fracture or subluxation. 2. Multilevel degenerative changes as above includes a large posterior disc osteophyte complex at C4- C5 resulting in severe right lateral recess and severe central canal stenosis. Additionally, note is made of multilevel foraminal narrowing. 3. Inflammatory stranding of the left neck and supraclavicular tissues with multiple prominent lymph nodes are nonspecific findings and may be related to the patient's recent pacemaker placement. No abby inable fluid collection identified. ACT 112: Negative or not required by law. The above report was generated using voice recognition software. It may contain grammatical, syntax o r spelling errors. Electronically signed by: Noah Venegas M.D. 11/08/2019 8:44 PM
[2019-11-09] MEDS: HYDROCODONE/ACETAMOPHEN 5/325MG TAB PO PRN (03:13)
[2019-11-09] MEDS: DICLOFENAC SOD 1% GEL 100 GM TUBE EXT SCH ×4 (03:13→20:48)
[2019-11-09 06:48] LABS: Estimated Average Glucose 154 mg/dl
[2019-11-09 06:58] LABS: Hematocrit (blood only) 30.7 % (37-47); Hemoglobin 9.4 g/dL (12.0-16.0); Mean Corpuscular Hemoglobin 29.9 pg (25-34); Mean Corpuscular Hgb Conc 30.6 g/dL (32-36); Mean Corpuscular Volume 97.8 fL (80-100); Mean Platelet Volume 10.2 fL (7.4-10.4); Platelet Count 247 K/uL (130-400); RDW Coefficient of Variation 12.3 % (11.5-14.5); RDW Standard Deviation 43.8 fL (36.4-46.3); Red Blood Count 3.14 M/uL (4.2-5.4); White Blood Count 6.97 K/uL (4.8-10.8)
[2019-11-09 07:27] LABS: Albumin Level 2.5 gm/dl (3.4-5.0); BUN Creatinine Ratio 30.2 (10-20); Calcium 9.4 mg/dl (8.5-10.1); Creatinine Clr Calc Pharmacy 37.2 ml/min; Est GFR (African American) 57.3; Est GFR (Non-African American) 49.4; Potassium 3.8 mmol/L (3.5-5.1)
[2019-11-09 07:30] LABS: Albumin Globulin Ratio 0.5 (0.9-2); Bilirubin,Total 0.4 mg/dl (0.2-1); Globulin 4.9 gm/dl (2.5-4.0); Total Protein 7.4 gm/dl (6.4-8.2)
[2019-11-09] MEDS: SACUBITRIL-VALSARTAN 97-103 MG TAB PO SCH ×2 (08:27→20:46)
[2019-11-09] MEDS: METOPROLOL SUCC 50MG EXT REL TAB PO SCH (08:27)
[2019-11-09] MEDS: POTASSIUM CHLORIDE 10 MEQ TABCR PO SCH ×2 (08:27→20:46)
[2019-11-09] MEDS: FUROSEMIDE 40 MG TAB PO SCH (08:27)
[2019-11-09] MEDS: INSULIN ASPART 100 UNITS/ML 3 ML PEN SC SCH ×4 (08:30→21:19)
--- NOTE | 2019-11-09 11:07 | Cardiology Consultation ---
Date of Consultation November 09, 2019 Assessment & Plan (1) Status post implantation of automatic cardioverter/defibrillator (AICD): I think the likelihood of complications secondary to device implantation is quite low. The device pocket itself appears to be healing well and she has actually no discomfort at that site. She did describe some swelling of the upper extremities and perhaps had some mild edema on examination today. I suppose there is a very small chance that there is a left subclavian or upper arm thrombosis which is causing some symptoms. I think a limited ultrasound at that site would be reasonable. Occasionally a pericardial effusion could cause some symptoms post implant, but this would more typically involve pleuritic chest discomfort. Her symptoms appear to be fairly mechanical in nature related to turning her neck. This is also in the setting of known cervical spine disease discovered on CT scan last night. Given her stable hemodynamics in the absence of other symptoms associated with pericardial effusion I do not believe we need to investigate that possibility. He would seem that the most likely explanation for her symptoms involves the abnormal findings on her CT scan. (2) LV (left ventricular) mural thrombus: Previously documented to have been resolved. No need for anticoagulation. (3) Nonischemic cardiomyopathy: She appears to be well compensated currently. No evidence of peripheral edema. No breathing difficulty. Normal chest x-ray. She can continue on her outpatient medical regimen which includes metoprolol succinate and Entresto. (4) CAD (coronary artery disease), [place] coronary artery: No current symptoms suggestive of coronary insufficiency or ischemia. I do not believe her neck discomfort is related to an acute coronary syndrome. Biomarkers were normal. She can continue her home beta-kim. She is not appear to have an indication for aspirin as primary prevention given her advanced age. History of Present Illness Reason for Consultation: Neck and arm pain Requesting Physician: Elizabeth Attending Physician: Jonathan Johnson History of Present Illness Patient is an 84-year-old woman with a history of a nonischemic cardiomyopathy, coronary artery disease, left ventricular thrombus and recent implantation a biventricular ICD who presented to the emergency room with symptoms of significant neck and left arm discomfort. Patient states that after her discharge nearly 2 weeks ago she began to experience the symptoms. Her neck discomfort appears to be worse with turning her head to the left side. It also involve some radiation into the left arm and she has noticed some bilateral arm weakness. She did report some swelling in her upper extremities after discharge and actually had to remove her rings due to swelling in her hands. She did have 1 episode of chest discomfort several days after discharge. She describes this as indigestion. It involved a severe burning sensation in the precordium and was associated with some change in her bowel habits as well. No nausea. Otherwise she has been eating well. She has been severely fatigued and weak. She denies any pleuritic chest pain. She denies any pain at the actual implant site. She did not report fevers or chills. She actually made the statement that the only part of my body that does not hurt is the device implant". Allergies Allergy/AdvReac Type Severity Reaction Status Date / Time Azo-Gantrisin TABS Allergy Unknown Unknown Uncoded 11/08/19 08:55 Dust Mite Allergy Unknown Unknown Uncoded 11/08/19 08:55 Statins Allergy Unknown Unknown Uncoded 11/08/19 08:55 Sulfa Drugs Allergy Unknown Unknown Uncoded 11/08/19 08:55 Home Medications Home Medications Medication Instructions Recorded Confirmed Type furosemide 80 mg tablet 40 mg PO QAM #90 tab 06/29/19 11/08/19 Rx metformin 500 mg tablet 500 mg PO UD tab 06/29/19 11/08/19 History sacubitril 97 mg-valsartan 103 mg 1 tab PO BID #180 tab 06/29/19 11/08/19 Rx tablet metoprolol succinate 200 mg 200 mg PO QAM #90 tab 07/06/19 11/08/19 Rx tablet,extended release 24 hr Rollator Walker #1 ea 09/19/19 10/31/19 Rx blood sugar diagnostic #200 ea 09/19/19 10/31/19 Rx blood-glucose meter #1 ea 09/19/19 10/31/19 Rx lancets 33 gauge #200 ea 09/19/19 10/31/19 Rx potassium chloride 10 meq PO BID 11/08/19 11/08/19 History Patient History Medical History Anxiety (Acute) Arthralgia of multiple sites (Acute) Chronic sinusitis (Acute) 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) Cough (Acute) Diabetes mellitus type 2, uncontrolled (Acute) Diabetes mellitus with albuminuria (Acute) Esophageal reflux (Acute) Hematuria (Acute) Hypercholesteremia (Chronic) Hypercholesterolemia (Chronic) Hypertension (Chronic) Hypertension (Chronic) Low back pain (Acute) Microalbuminuria (Acute) Onychomycosis of toenail (Acute) Pain in thoracic spine (Acute) Panic disorder without agoraphobia (Acute) Surgical History History of colonoscopy History of hysterectomy Family History Mother Diabetes Brother Diabetes Hypertension Pure hypercholesterolemia Other Family history non-contributory Social History Preferred Language: Mongolian Communication Ability: Effective Kitchen Supervisor Required: No Beliefs That Will Affect Care: None Current Living Situation: Family Current Living Situation Comment: lives with daughter current occupational status: retired Other Information That Helps Us Care for You: No Feels Safe at Home: Yes Safety Concerns: Feels Safe At This Time Smoking Status: Never smoker Do You Dip or Chew Tobacco: No ; Second Hand Exposure: No ; Tobacco Cessation Education Requested by Patient: No Hx Alcohol Use: No Hx Substance Use: No Review of Systems Review of Systems: All systems reviewed & are unremarkable except as noted in HPI & below Per HPI. No swelling in her lower extremities. Weight has been stable. She did not report any new orthopnea. She generally sleeps on 2 pillows. Physical Exam Physical Exam: She is alert and oriented x3. Mood affect appear normal. She answered all questions appropriately. HEENT: Sclerae are anicteric. Pupils are equal and reactive to light and accommodation. Extraocular movements were intact. Neuro: Cranial nerves intact Neck: Examination of the submandibular region did not reveal any significant lymphadenopathy. Carotids are palpable bilaterally and free of bruits on auscultation. There was no evidence of jugular venous distention. The thyroid was not enlarged. Lungs: Lungs are clear to auscultation bilaterally. There are no rales wheezes or rhonchi. She has normal respiratory effort without use of accessory muscles. There is normal pulmonary excursion. Cardiac: The rhythm was regular. S1 and S2 were normal. There are no murmurs on examination. The PMI was not markedly displaced on palpation. Chest: Well-healed device implant site in left upper pectoral area. No erythema, ecchymosis or drainage. Nontender to palpation. Abdomen: The abdomen was soft and nontender. Extremities: Patient has bilateral radial pulses that are equal in intensity. There is no evidence cyanosis or clubbing. There was no evidence of significant peripheral edema bilaterally. Skin: There are no rashes noted on examination today. Results & Data ([facility]) Vital Signs (Past 12 Hours) Vital Signs Temp Pulse Resp BP Pulse Ox 11/09/19 07:49 36.8 C 99 H 20 122/71 94 11/09/19 02:57 36.6 C 91 H 20 94/60 L 90 Laboratory Results Abnormal Lab Results 11/08/19 11/08/19 11/08/19 08:15 08:15 16:30 WBC RBC Hgb Hct MCV MCH MCHC RDW Std Deviation RDW Coeff of Shaka Plt Count MPV ESR 86 H Sodium Potassium Chloride Carbon Dioxide Anion Gap BUN Creatinine Est Cr Clr Drug Dosing Est GFR ( Amer) Est GFR (Non-Af Amer) BUN/Creatinine Ratio Glucose POC Glucose Estimat Average Glucose 154 Hemoglobin A1c 7.0 H Calcium Total Bilirubin AST ALT Alkaline Phosphatase Troponin I < 0.015 C-Reactive Protein 20.70 H Total Protein Albumin Globulin Albumin/Globulin Ratio 11/08/19 11/08/19 11/08/19 17:08 20:40 23:45 WBC RBC Hgb Hct MCV MCH MCHC RDW Std Deviation RDW Coeff of Shaka Plt Count MPV ESR Sodium Potassium Chloride Carbon Dioxide Anion Gap BUN Creatinine Est Cr Clr Drug Dosing Est GFR ( Amer) Est GFR (Non-Af Amer) BUN/Creatinine Ratio Glucose POC Glucose 157 H 210 H Estimat Average Glucose Hemoglobin A1c Calcium Total Bilirubin AST ALT Alkaline Phosphatase Troponin I < 0.015 C-Reactive Protein Total Protein Albumin Globulin Albumin/Globulin Ratio 11/09/19 11/09/19 11/09/19 06:08 06:08 07:36 WBC 6.97 RBC 3.14 L Hgb 9.4 L Hct 30.7 L MCV 97.8 MCH 29.9 MCHC 30.6 L RDW Std Deviation 43.8 RDW Coeff of Shaka 12.3 Plt Count 247 MPV 10.2 ESR Sodium 138 Potassium 3.8 Chloride 107 Carbon Dioxide 26 Anion Gap 5.0 BUN 32 H Creatinine 1.05 Est Cr Clr Drug Dosing 37.2 Est GFR ( Amer) 57.3 Est GFR (Non-Af Amer) 49.4 BUN/Creatinine Ratio 30.2 H Glucose 132 H POC Glucose 120 H Estimat Average Glucose Hemoglobin A1c Calcium 9.4 Total Bilirubin 0.4 AST 13 L ALT 18 Alkaline Phosphatase 64 Troponin I C-Reactive Protein Total Protein 7.4 Albumin 2.5 L Globulin 4.9 H Albumin/Globulin Ratio 0.5 L Diagnostic Findings Echocardiogram performed 09/02/2019: Moderate to severely reduced LV systolic function, [id number] mitral regurgitation. No left ventricular thrombus. CT scan of the neck revealed significant degenerative changes and large posterior disc osteophyte at C4-C5. There was severe central canal stenosis at that site. Chest x-ray obtained at the time admission not reveal any acute cardiopulmonary process KUB obtained at time admission was normal ECG Additional Comments: EKG obtained at time admission revealed sinus rhythm with 100 percent ventricular pacing PG Care Time/CCT Total # of Minutes Spent Total Time Spent with Patient: Total time spent is greater than 50% in coordination of care (as documented) at patient's floor/unit and/or counseling patient: Coding Level of Care Code 02817 OBS Care - Level 3 Diagnoses Status post implantation of automatic cardioverter/defibrillator (AICD) Z95.810 LV (left ventricular) mural thrombus I51.3 Nonischemic cardiomyopathy I42.8 CAD (coronary artery disease), [place] coronary artery I25.10
--- NOTE | 2019-11-09 13:49 | Ultrasound Report ---
US venous doppler UE LT CLINICAL HISTORY: 84 years-old Female presenting with thrombus. TECHNIQUE: Real-time grayscale and color and spectral Doppler ultrasound imaging of the veins of the left upper extremity was performed. Compression and augmentation were also utilized. COMPARISON: None. FINDINGS: Limited evaluation of the mid forearm due to the presence of an intravenous line. LEFT: Internal jugular vein: Occlusive filling defect consistent with thrombus. Subclavian vein: Occlusive filling defect consistent with thrombus. Axillary vein: Occlusive filling defect consistent with thrombus. Brachial vein: Occlusive filling defect consistent with thrombus. Basilic vein (superficial): Occlusive filling defect consistent with thrombus. Cephalic vein (superficial): Patent. Radial vein: Patent. Ulnar vein: Patent. Other: None. IMPRESSION: 1. Occlusive deep venous thrombosis involving the left brachial vein, axillary vein, subclavian vein , internal jugular vein. This is acute appearing. 2. Superficial venous thrombosis in the basilic vein. The report will be called/faxed according to standard departmental protocol for a critical finding. ACT 112: Negative or not required by law. Electronically signed by: Adolfo Weeks M.D. 11/09/2019 1:48 PM
[2019-11-09] MEDS ORDERED: HEPARIN SODIUM/DEXTROSE 25,000 UNITS/500 ML BAG IV SCH (14:35)
[2019-11-09] MEDS: Heparin IV Standard *NO* Bolus IV SCH ×3 (15:56→16:05)
[2019-11-09 16:24] LABS: Hematocrit (blood only) 29.6 % (37-47); Hemoglobin 9.6 g/dL (12.0-16.0)
[2019-11-09 22:02] LABS: Appearance Urine Cloudy (Clear); Bacteria Urine Automated 3+ (Negative); Bilirubin Urine Negative (Negative); Blood Urine 1+ (Negative); Color Urine Yellow; Epithelial Cell Urine Auto 20-30 /lpf (0-5); Glucose Urine UA Negative (Negative); Ketones Urine Negative (Negative); Leukocyte Esterase Urine 2+ (Negative); Nitrite Urine Positive (Negative); Protein Urine Negative (Negative); Specific Gravity Urine 1.018 (1.000-1.030); Urobilinogen Urine Negative (Negative); WBC Urine Automated >30 /hpf (0-5)
[2019-11-09 22:10] LABS: Partial Thromboplastin Ratio 1.4; Partial Thromboplastin Time 38.9 Seconds (21.0-31.0)
[2019-11-09 22:25] LABS: Renal Epithelial Cells Urine 0-5 /lpf (0-5)
--- NOTE | 2019-11-09 22:39 | Hospitalist Progress Note ---
Date of Service November 09, 2019 Assessment & Plan (1) Acute neck pain: -Admit to [facility] with telemetry -Check CT of the neck: showed: -Multilevel degenerative changes as above includes a large posterior disc osteophyte complex at C4-C5 resulting in severe right lateral recess and severe central canal stenosis. Additionally, note is made of multilevel foraminal narrowing. -Voltaren gel, baclofen low-dose, [place], Tylenol, heating pad for pain relief - had received fentanyl in ER with some relief. Will consult ortho. (2) Acute DVT (deep venous thrombosis): Placed patient on IV heparin. will monitor hemoglobin (3) Status post implantation of automatic cardioverter/defibrillator (AICD): -Underwent procedure on 11/01/2019, has not yet seen cardiology and follow up as outpatient -Cardiology consulted-Dr. Tian -Trend troponins x2 more sets, initial was negative with intermittent chest pain in location of the pain itself although unlikely ACS -EKG reviewed which is essentially unchanged compared to previous -Continue Lasix 40 mg QAM, metoprolol succinate 200 mg QAM, Entresto BID--not take morning medications today. (4) LV (left ventricular) mural thrombus: (5) Nonischemic cardiomyopathy: (6) CAD (coronary artery disease), [place] coronary artery: (7) LBBB (left bundle branch block): (8) Chronic systolic (congestive) heart failure: -Continue medications as above -We will hold off on 2D echo at this time, unlikely that there would be a significant change in echocardiogram only 1 week after pacemaker insertion compared to last one done in August 2019. (9) Hypertension: - BP well controlled, continue meds as above. (10) Diabetes mellitus type 2, uncontrolled: -Last A1c = 6.01/2019, recheck now -Glucose elevated at 213 upon admission, holding metformin, will start on ISS with Accu-Cheks AC at bedtime -Allow HH/Dm diet (11) Hypercholesterolemia: -Last fasting lipid panel was done in April 2019, well controlled, not on statin therapy (12) Anemia: -Hemoglobin of 10.7 on admission, on 10/27/2019 was 13.8. -Check fecal occult blood to rule out GI bleed -Patient is not on any blood thinning medications -Last TSH checked in April and was normal at 2.640. 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 She has no new complaints. Review of Systems Review of Systems: Constitutional: No fever, sweats or chills, + severe fatigue Eyes: No diplopia, no worsening or blurred vision ENT: normal hearing, no trouble swallowing Neck: Left-sided neck pain radiating down into the left arm and up into the jaw worse with turning head to towards the left Respiratory: No cough, sputum, dyspnea at rest, + dyspnea on exertion Cardiovascular: No chest pain, tightness or palpitations Abdomen: As per HPI. No pain, nausea, vomiting, diarrhea or constipation Musculoskeletal: No joint pain, calf pain, swelling Neurologic: + Generalized weakness, no numbness/tingling, or balance problems, uses a cane for ambulation Psychiatric: No anxiety or depression Skin: No rash or itch Physical Exam Physical Exam: General: awake, alert, no apparent distress Head: Normocephalic, atraumatic ENT: PERRL, EOMI, no pharyngeal exudate Chest: Clear to auscultation, on 2L via NC, + faint crackles bibasilarly otherwise no adventitious breath sounds Cardiac: + Left chest wall incision site appears to be healing well, no surrounding erythema, no purulent drainage, nontender with palpation over pacemaker, regular rate and rhythm, normal peripheral pulses, good capillary refill Abdominal: NABS x 4 quadrants, soft, nondistended, nontender to palpation, no rebound, guarding or tenderness Extremities: Normal inspection, no peripheral edema or erythema, calfs nontender to palpation Psych: Normal mood and affect Neuro: AAO x 3, strength intact bilaterally and rated 5/5, + pain elicited with neck external rotation to the left, no motor deficits, speech is clear, no peripheral sensory deficits Skin: no rash or erythema Results & Data Results & Data ([facility]) Vital Signs (Past 12 Hours) Vital Signs Temp Pulse Pulse Resp BP BP Pulse Ox 11/09/19 19:44 37.9 C H 99 H 20 98/62 L 91 11/09/19 19:03 94 H 11/09/19 15:47 37.2 C 91 H 20 94/60 L 11/09/19 11:33 92 PG Care Time/CCT Total # of Minutes Spent Total Time Spent with Patient: Total time spent is greater than 50% in coordination of care (as documented) at patient's floor/unit and/or counseling patient: Coding Level of Care Code 36522 Subseq Obs Care Lvl 3 Diagnoses Acute neck pain M54.2 Acute DVT (deep venous thrombosis) I82.409 Status post implantation of automatic cardioverter/defibrillator (AICD) Z95.810 LV (left ventricular) mural thrombus I51.3 Nonischemic cardiomyopathy I42.8 CAD (coronary artery disease), [place] coronary artery I25.10 LBBB (left bundle branch block) I44.7 Chronic systolic (congestive) heart failure I50.22 Hypertension I10 Diabetes mellitus type 2, uncontrolled E11.65 Hypercholesterolemia E78.00 Anemia D64.9 Arthralgia of multiple sites M25.50 DVT prophylaxis Z29.9 Time Spent (min) 35
[2019-11-09] MEDS ORDERED: Nursing to Pharmacy Communication ONE (22:40)
[2019-11-09] MEDS ORDERED: HEPARIN IV BOLUS 5,000 UNITS in SYRINGE 0 ML IV ONE (22:45)
[2019-11-10] MEDS: DICLOFENAC SOD 1% GEL 100 GM TUBE EXT SCH ×3 (04:26→17:29)
[2019-11-10 05:27] LABS: Albumin Globulin Ratio 0.5 (0.9-2); Albumin Level 2.3 gm/dl (3.4-5.0); BUN Creatinine Ratio 37.3 (10-20); Bilirubin,Total 0.4 mg/dl (0.2-1); Calcium 9.2 mg/dl (8.5-10.1); Creatinine Clr Calc Pharmacy 27.9 ml/min; Est GFR (African American) 40.5; Est GFR (Non-African American) 34.9; Globulin 4.5 gm/dl (2.5-4.0); Potassium 4.4 mmol/L (3.5-5.1); Total Protein 6.8 gm/dl (6.4-8.2)
[2019-11-10 06:19] LABS: Partial Thromboplastin Ratio 3.1
[2019-11-10 06:22] LABS: Partial Thromboplastin Time 86.7 Seconds (21.0-31.0)
[2019-11-10 06:24] LABS: Hematocrit (blood only) 28.3 % (37-47); Hemoglobin 9.3 g/dL (12.0-16.0); Mean Corpuscular Hemoglobin 31.2 pg (25-34); Mean Corpuscular Hgb Conc 32.9 g/dL (32-36); Mean Platelet Volume 9.4 fL (7.4-10.4); Platelet Count 96 K/uL (130-400); RDW Standard Deviation 41.1 fL (36.4-46.3); Red Blood Count 2.98 M/uL (4.2-5.4); White Blood Count 9.09 K/uL (4.8-10.8)
[2019-11-10 08:02] LABS: Platelet Count 91 K/uL (130-400)
--- NOTE | 2019-11-10 08:27 | Orthopedic Consultation ---
Date of Consultation November 10, 2019 Assessment & Plan (1) Acute neck pain: This time her CAT scan does demonstrate a fairly substantial disc osteophyte complex that is calcified the see for C5 level. There is clear canal compromise. This is clearly not an acute finding. Perhaps positioning during pacemaker placement exacerbated some underlying stenosis. This point she appears to be improving. This point I would continue with observation only. I would not recommend physical therapy as this could exacerbate some underlying issues. She is obviously a very poor surgical candidate and at this point I would not recommend any further imaging or testing. Present on Admission?: Yes History of Present Illness Reason for Consultation: Neck pain for 1 week Attending Physician: Jonathan Johnson History of Present Illness 10-year-old female states that began experiencing significant neck and bilateral arm symptoms left greater than right after her pacemaker was placed. She describes a generalized weakness. She describes orthostatic hypotension when she gets out of a chair but no clear balance disturbance. She denies any loss of fine motor skills revolve involving her hands. She does describe some generalized weakness and difficulty opening jars. This morning she has no significant neck pain. She denies any numbness tingling or paresthesias the bilateral upper extremities. Allergies Allergy/AdvReac Type Severity Reaction Status Date / Time Azo-Gantrisin TABS Allergy Unknown Unknown Uncoded 11/08/19 08:55 Dust Mite Allergy Unknown Unknown Uncoded 11/08/19 08:55 Statins Allergy Unknown Unknown Uncoded 11/08/19 08:55 Sulfa Drugs Allergy Unknown Unknown Uncoded 11/08/19 08:55 Home Medications Home Medications Medication Instructions Recorded Confirmed Type furosemide 80 mg tablet 40 mg PO QAM #90 tab 06/29/19 11/08/19 Rx metformin 500 mg tablet 500 mg PO UD tab 06/29/19 11/08/19 History sacubitril 97 mg-valsartan 103 mg 1 tab PO BID #180 tab 06/29/19 11/08/19 Rx tablet metoprolol succinate 200 mg 200 mg PO QAM #90 tab 07/06/19 11/08/19 Rx tablet,extended release 24 hr Rollator Walker #1 ea 09/19/19 10/31/19 Rx blood sugar diagnostic #200 ea 09/19/19 10/31/19 Rx blood-glucose meter #1 ea 09/19/19 10/31/19 Rx lancets 33 gauge #200 ea 09/19/19 10/31/19 Rx potassium chloride 10 meq PO BID 11/08/19 11/08/19 History Patient History Medical History Anxiety (Acute) Arthralgia of multiple sites (Acute) Chronic sinusitis (Acute) 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) Cough (Acute) Diabetes mellitus type 2, uncontrolled (Acute) Diabetes mellitus with albuminuria (Acute) Esophageal reflux (Acute) Hematuria (Acute) Hypercholesteremia (Chronic) Hypercholesterolemia (Chronic) Hypertension (Chronic) Hypertension (Chronic) Low back pain (Acute) Microalbuminuria (Acute) Onychomycosis of toenail (Acute) Pain in thoracic spine (Acute) Panic disorder without agoraphobia (Acute) Surgical History History of colonoscopy History of hysterectomy Family History Mother Diabetes Brother Diabetes Hypertension Pure hypercholesterolemia Other Family history non-contributory Social History Preferred Language: Irish Communication Ability: Effective Online Program Coordinator Required: No Beliefs That Will Affect Care: None Current Living Situation: Family Current Living Situation Comment: lives with daughter current occupational status: retired Other Information That Helps Us Care for You: No Feels Safe at Home: Yes Safety Concerns: Feels Safe At This Time Smoking Status: Never smoker Do You Dip or Chew Tobacco: No ; Second Hand Exposure: No ; Tobacco Cessation Education Requested by Patient: No Hx Alcohol Use: No Hx Substance Use: No Physical Exam Physical Exam: On exam she is alert and oriented. She demonstrates a 4 5 grasp bilaterally. She has active cervical range of motion without evidence of Lhermitte's phenomenon or radiculopathy. Sensory appears to be symmetric intact to cold light touch bilateral upper extremities. There is no evidence of clonus to lower extremities or Donta sign bilateral upper extremities. Results & Data ([facility]) Vital Signs (Past 12 Hours) Vital Signs Temp Pulse Pulse Resp BP BP Pulse Ox 11/10/19 07:46 36.4 C L 62 18 90/56 L 93 11/10/19 02:44 36.8 C 83 18 96/63 L 94 11/09/19 23:39 92 H 11/09/19 23:30 98 11/09/19 23:00 37.0 C 90 20 90/55 L 80 L
[2019-11-10] MEDS: SACUBITRIL-VALSARTAN 97-103 MG TAB PO SCH (08:41)
[2019-11-10] MEDS: POTASSIUM CHLORIDE 10 MEQ TABCR PO SCH (08:41)
[2019-11-10] MEDS: METOPROLOL SUCC 50MG EXT REL TAB PO SCH (08:41)
[2019-11-10] MEDS: FUROSEMIDE 40 MG TAB PO SCH (08:45)
[2019-11-10] MEDS: INSULIN ASPART 100 UNITS/ML 3 ML PEN SC SCH ×4 (08:53→22:04)
[2019-11-10] MEDS ORDERED: LACTATED RINGER'S 1,000 ML IV SCH (09:30)
[2019-11-10] MEDS ORDERED: APIXABAN 5 MG TABLET PO SCH (10:00)
[2019-11-10] MEDS ORDERED: SODIUM CHLORIDE 0.9% 250 ML IV PRN (12:11)
[2019-11-10 12:30] LABS: Hematocrit (blood only) 28.2 % (37-47); Hemoglobin 9.1 g/dL (12.0-16.0)
[2019-11-10 12:56] LABS: Ferritin 257.7 ng/ml (8-388)
--- NOTE | 2019-11-10 13:15 | XRay Report ---
XR chest 1V portable CLINICAL HISTORY: hypoxia COMPARISON STUDY: Chest radiograph November 08, 2019. FINDINGS: A left subclavian biventricular pacer/AICD is in place. Moderate cardiac megaly is unchange d. There is no evidence for pulmonary edema. No pneumothorax or pleural effusion is noted. A large hi atal hernia is noted. Left lower lung opacity favors atelectasis. Minimal right basilar opacity favor s atelectasis. IMPRESSION: 1. Bibasilar opacities which favor atelectasis. 2. Cardiomegaly without evidence for pulmonary edema. 3. Hiatal hernia. ACT 112: Negative or not required by law. Electronically signed by: Ken Sahu M.D. 11/10/2019 1:14 PM
[2019-11-10] MEDS ORDERED: PIPERACILL/TAZOBAC CONSULT ACTIVE PRN (14:25)
[2019-11-10] MEDS ORDERED: PIPERACILLIN/TAZOBACTAM 3.375 GM in DEXTROSE 5% 100 ML IV SCH (14:30)
[2019-11-10] MEDS ORDERED: PIPERACILLIN/TAZOBACTAM 3.375 GM in DEXTROSE 5% 100 ML IV ONE (15:00)
[2019-11-10] MEDS: PIPERACILLIN/TAZOBACTAM 3.375 GM in DEXTROSE 5% 100 ML IV SCH (22:04)
--- NOTE | 2019-11-10 22:53 | Hospitalist Progress Note ---
Date of Service November 10, 2019 Assessment & Plan (1) Sepsis associated hypotension: unknown source of infection. Procal is elevated, perhaps UTI. Placed on zosyn. Blood pressure improved after antibiotics were given. Differential may be abscess of neck vs UTI. Blood cultures were ordered. Given odd presentation, also checking for covid 19. (2) Acute neck pain: -Admit to [facility] with telemetry -Check CT of the neck: showed: -Multilevel degenerative changes as above includes a large posterior disc osteophyte complex at C4-C5 resulting in severe right lateral recess and severe central canal stenosis. Additionally, note is made of multilevel foraminal narrowing. -Voltaren gel, baclofen low-dose, [place], Tylenol, heating pad for pain relief - had received fentanyl in ER with some relief. consulted ortho. (3) Pancytopenia: Patient is having pancytopenia. Likely source is from sepsis. Doubt HIT. Ordered HIT panel. Stopped heparin. Placed on eliquis. Concern over possible GI bleed, elqiuis was stopped after one dose. GI bleed seems unlikely though given no active bowel movement since patient has been here. will closely monitor hemoglobin. (4) Acute DVT (deep venous thrombosis): hGave one dose of eliquis. will hold for now. (5) Status post implantation of automatic cardioverter/defibrillator (AICD): -Underwent procedure on 11/01/2019, has not yet seen cardiology and follow up as outpatient -Cardiology consulted-Dr. Tian -Trend troponins x2 more sets, initial was negative with intermittent chest pain in location of the pain itself although unlikely ACS -EKG reviewed which is essentially unchanged compared to previous -Continue Lasix 40 mg QAM, metoprolol succinate 200 mg QAM, Entresto BID--not take morning medications today. (6) LV (left ventricular) mural thrombus: (7) Nonischemic cardiomyopathy: (8) CAD (coronary artery disease), [place] coronary artery: (9) LBBB (left bundle branch block): (10) Chronic systolic (congestive) heart failure: -Continue medications as above -We will hold off on 2D echo at this time, unlikely that there would be a s ignificant change in echocardiogram only 1 week after pacemaker insertion compared to last one done in August 2019. (11) Hypertension: -will hold BP meds today. (12) Diabetes mellitus type 2, uncontrolled: -Last A1c = 6.01/2019, recheck now -Glucose elevated at 213 upon admission, holding metformin, will start on ISS with Accu-Cheks AC at bedtime -Allow HH/Dm diet (13) Hypercholesterolemia: -Last fasting lipid panel was done in April 2019, well controlled, not on statin therapy (14) Anemia: hemoglobin has been gradually decreasing. will monitor. may give blood. -Last TSH checked in April and was normal at 2.640. (15) Arthralgia of multiple sites: -Concerning for polymyalgia rheumatica with multiple chronic arthritic joints inflammatory markers are elevated. -Continue supportive and topical therapy as above for neck pain (16) DVT prophylaxis: - teds, scds CODE: DNR Admission and Anticipated Discharge Date Admission Date: November 10, 2019 Subjective Patient reports feeling slightly better today. She states she is less fatigues today. She continues to have neck pain. Review of Systems Review of Systems: All systems reviewed & are unremarkable except as noted in HPI & below Physical Exam Physical Exam: General: awake, alert, no apparent distress Head: Normocephalic, atraumatic ENT: PERRL, EOMI, no pharyngeal exudate Chest: Clear to auscultation, on 2L via NC, + faint crackles bibasilarly otherwise no adventitious breath sounds Cardiac: + Left chest wall incision site appears to be healing well, no surrounding erythema, no purulent drainage, nontender with palpation over pacemaker, regular rate and rhythm, normal peripheral pulses, good capillary refill Abdominal: NABS x 4 quadrants, soft, nondistended, nontender to palpation, no rebound, guarding or tenderness Extremities: Normal inspection, no peripheral edema or erythema, calfs nontender to palpation Psych: Normal mood and affect Neuro: AAO x 3, strength intact bilaterally and rated 5/5, + pain elicited with neck external rotation to the left, no motor deficits, speech is clear, no pe ripheral sensory deficits Skin: no rash or erythema Results & Data Results & Data ([facility]) Vital Signs (Past 12 Hours) Vital Signs Temp Pulse Pulse Resp BP BP Pulse Ox 11/10/19 19:37 36.8 C 66 18 98/61 L 96 11/10/19 16:00 69 11/10/19 14:42 36.7 C 66 18 89/51 L 98 11/10/19 11:33 36.4 C L 64 18 71/49 L 81/42 L 97 PG Care Time/CCT Total # of Minutes Spent Total Time Spent with Patient: Total time spent is greater than 50% in coordination of care (as documented) at patient's floor/unit and/or counseling patient: Prolonged Care Time Prolonged Care Time: Yes Total Prolonged Care Time: 105 9:20 to 9:40 12:00 to 12:30 14:20 to 14:45 18:00 to 18:30 Coding Level of Care Code 68392 Subseq Hosp Care Lvl 3 Diagnoses Sepsis associated hypotension A41.9; I95.9 Acute neck pain M54.2 Pancytopenia D61.818 Acute DVT (deep venous thrombosis) I82.409 Status post implantation of automatic cardioverter/defibrillator (AICD) Z95.810 LV (left ventricular) mural thrombus I51.3 Nonischemic cardiomyopathy I42.8 CAD (coronary artery disease), [place] coronary artery I25.10 LBBB (left bundle branch block) I44.7 Chronic systolic (congestive) heart failure I50.22 Hypertension I10 Diabetes mellitus type 2, uncontrolled E11.65 Hypercholesterolemia E78.00 Anemia D64.9 Arthralgia of multiple sites M25.50 DVT prophylaxis Z29.9 Additional Codes Prolonged Care Time - Prolonged Care Time: Yes ([id number]) Time Spent (min) 105 Comment Time spent: 9:20 to 9:40 12:00 to 12:30 14:20 to 14:45 18:00 to 18:30
[2019-11-11] MEDS: DICLOFENAC SOD 1% GEL 100 GM TUBE EXT SCH ×5 (00:03→23:21)
[2019-11-11] MEDS: PIPERACILLIN/TAZOBACTAM 3.375 GM in DEXTROSE 5% 100 ML IV SCH ×3 (05:17→20:37)
[2019-11-11 06:25] LABS: Hematocrit (blood only) 26.7 % (37-47); Hemoglobin 8.6 g/dL (12.0-16.0); Mean Corpuscular Hemoglobin 30.4 pg (25-34); Mean Corpuscular Hgb Conc 32.2 g/dL (32-36); Mean Corpuscular Volume 94.3 fL (80-100); Mean Platelet Volume 10.1 fL (7.4-10.4); Platelet Count 115 K/uL (130-400); RDW Coefficient of Variation 12.1 % (11.5-14.5); RDW Standard Deviation 41.5 fL (36.4-46.3); Red Blood Count 2.83 M/uL (4.2-5.4); White Blood Count 5.35 K/uL (4.8-10.8)
[2019-11-11 07:00] LABS: Albumin Level 2.2 gm/dl (3.4-5.0); BUN Creatinine Ratio 42.4 (10-20); Calcium 9.1 mg/dl (8.5-10.1); Creatinine Clr Calc Pharmacy 39.3 ml/min; Est GFR (African American) 55.4; Est GFR (Non-African American) 47.8; Potassium 4.2 mmol/L (3.5-5.1)
[2019-11-11 07:03] LABS: Albumin Globulin Ratio 0.5 (0.9-2); Bilirubin,Total 0.3 mg/dl (0.2-1); Total Protein 6.2 gm/dl (6.4-8.2)
[2019-11-11] MEDS: INSULIN ASPART 100 UNITS/ML 3 ML PEN SC SCH ×4 (10:08→21:43)
[2019-11-11] MEDS: HYDROCODONE/ACETAMOPHEN 5/325MG TAB PO PRN (12:37)
[2019-11-11 13:30] LABS: Hematocrit (blood only) 27.1 % (37-47); Hemoglobin 8.8 g/dL (12.0-16.0)
--- NOTE | 2019-11-11 13:45 | Infectious Disease Consult ---
Date of Consultation November 11, 2019 Assessment & Plan (1) UTI (urinary tract infection): she can continue zosyn for now, if blood cultures negative in am, can change to augmentin to complete 7 days. DVT could also be cause for low grade temp. initial blood cultures negative. (2) Acute DVT (deep venous thrombosis): History of Present Illness Attending Physician: Jonathan Whyteyennifer pt admitted with neck pain s/p pacemaker insertion on 10/31 (EF 30%.) she was found to have neck and arm pain, ct with DJD, ortho consulted no intervention planned, cardio consulted. no plan for new device. she had doppler of LUE showing dvt in l brachial vein. she has had no leukocytosis this admission. no f/c with exception of initial temp of 37.9. She is on zosyn. initial blood cultures 11/07 and negative, UA in ER >30 wbc +3 bacteria, culture 11/08 growing mccracken sensitive E. coli and K. pneumo. she is tolerating abx. no fevers. had episode of hotn yesterday, blood cultures repeated, ID consulted for sepsis. CXR with atelectasis. creat 1.0 Procalcintoin 0.6, COVID pending. Allergies Allergy/AdvReac Type Severity Reaction Status Date / Time Azo-Gantrisin TABS Allergy Unknown Unknown Uncoded 11/08/19 08:55 Dust Mite Allergy Unknown Unknown Uncoded 11/08/19 08:55 Statins Allergy Unknown Unknown Uncoded 11/08/19 08:55 Sulfa Drugs Allergy Unknown Unknown Uncoded 11/08/19 08:55 Home Medications Home Medications Medication Instructions Recorded Confirmed Type furosemide 80 mg tablet 40 mg PO QAM #90 tab 06/29/19 11/08/19 Rx metformin 500 mg tablet 500 mg PO UD tab 06/29/19 11/08/19 History sacubitril 97 mg-valsartan 103 mg 1 tab PO BID #180 tab 06/29/19 11/08/19 Rx tablet metoprolol succinate 200 mg 200 mg PO QAM #90 tab 07/06/19 11/08/19 Rx tablet,extended release 24 hr Rollator Walker #1 ea 09/19/19 10/31/19 Rx blood sugar diagnostic #200 ea 09/19/19 10/31/19 Rx blood-glucose meter #1 ea 09/19/19 10/31/19 Rx lancets 33 gauge #200 ea 09/19/19 10/31/19 Rx potassium chloride 10 meq PO BID 11/08/19 11/08/19 History Patient History Medical History Anxiety (Acute) Arthralgia of multiple sites (Acute) Chronic sinusitis (Acute) 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) Cough (Acute) Diabetes mellitus type 2, uncontrolled (Acute) Diabetes mellitus with albuminuria (Acute) Esophageal reflux (Acute) Hematuria (Acute) Hypercholesteremia (Chronic) Hypercholesterolemia (Chronic) Hypertension (Chronic) Hypertension (Chronic) Low back pain (Acute) Microalbuminuria (Acute) Onychomycosis of toenail (Acute) Pain in thoracic spine (Acute) Panic disorder without agoraphobia (Acute) Surgical History History of colonoscopy History of hysterectomy Family History Mother Diabetes Brother Diabetes Hypertension Pure hypercholesterolemia Other Family history non-contributory Social History Preferred Language: [place] Communication Ability: Effective Instant Printer Operator Required: No Beliefs That Will Affect Care: None Current Living Situation: Family Current Living Situation Comment: lives with daughter current occupational status: retired Other Information That Helps Us Care for You: No Feels Safe at Home: Yes Safety Concerns: Feels Safe At This Time Smoking Status: Never smoker Do You Dip or Chew Tobacco: No ; Second Hand Exposure: No ; Tobacco Cessation Education Requested by Patient: No Hx Alcohol Use: No Hx Substance Use: No Review of Systems Review of Systems: per H&P Results & Data ([facility]) Vital Signs (Past 12 Hours) Vital Signs Pulse 11/11/19 02:16 81 11/11/19 02:15 74 Laboratory Results Microbiology 11/09/19 21:05 Urine,Clean Catch Urine Culture - Final Klebsiella pneumoniae Escherichia coli 11/08/19 18:29 Blood Aerobic Blood Culture - Preliminary No growth in Aerobic bottle after 48 hours. 11/08/19 18:29 Blood Anaerobic Blood Culture - Preliminary No growth in Anaerobic bottle after 48 hours. 11/08/19 18:40 Blood Aerobic Blood Culture - Preliminary No growth in Aerobic bottle after 48 hours. 11/08/19 18:40 Blood Anaerobic Blood Culture - Preliminary No growth in Anaerobic bottle after 48 hours. PG Care Time/CCT Total # of Minutes Spent Total Time Spent with Patient: Total time spent is greater than 50% in coordination of care (as documented) at patient's floor/unit and/or counseling patient: Coding Level of Care Code 27868 Inpt Consult Level 2 Diagnoses UTI (urinary tract infection) N39.0 Acute DVT (deep venous thrombosis) I82.409
[2019-11-11] MEDS ORDERED: APIXABAN 2.5 MG TAB PO ONE (13:48)
[2019-11-11] MEDS ORDERED: SODIUM CHLORIDE 0.9% 250 ML IV PRN (13:51)
--- NOTE | 2019-11-11 13:51 | Communication Note ---
Date of Service: November 11, 2019 GI brief note 84 yo female with acute anemia in the setting of acute DVT and AC therapy. Was noted to be having dark stools and was on AC with heparin but anemia was getting worse so this was stopped, now on eliquis. Hgb was noted to be normal in early october. Now it is 8.8. She has eaten today and is not NPO. Impression: possible PUD vs. AVM vs. other etiology Recs: --start PPI protonix 40 mg IV BID --continue eliquis for now as she has active clot, risks of clot migration outweigh any benefit from stopping AC at this time --trend H/H BID --supportive care --if continues to worsen then will need emergent EGD to evaluate --will follow with you Moo Bell MD Gastroenterology
[2019-11-11] MEDS: PANTOprazole 40 MG in SYRINGE 0 ML IV SCH (20:44)
--- NOTE | 2019-11-11 21:23 | Hospitalist Progress Note ---
Date of Service November 11, 2019 Assessment & Plan (1) Sepsis associated hypotension: Unsure if patient had an infection. Procal was elevated, but only at 0.6 Ordered zosyn for UTI BP and kidney failure improved. However, this could also be attributed to holding BP meds. Differential may be abscess of neck vs UTI. Blood cultures were ordered. Given odd presentation, also checking for covid 19. (2) Acute neck pain: -Admit to [facility] with telemetry -Check CT of the neck: showed: -Multilevel degenerative changes as above includes a large posterior disc osteophyte complex at C4-C5 resulting in severe right lateral recess and severe central canal stenosis. Additionally, note is made of multilevel foraminal narrowing. -Voltaren gel, baclofen low-dose, [place], Tylenol, heating pad for pain relief - had received fentanyl in ER with some relief. consulted ortho. (3) Pancytopenia: Patient is having pancytopenia. Likely source is from sepsis. Doubt HIT. Ordered HIT panel. Stopped heparin. Placed on eliquis. Still concern over possible GI bleed. D/W GI j2ee consultant, will continue eliquis, will place on PPI. iT APPEARS AFTER DISCUSSING with daughter that she was on xarelto, however she last picked up a dose in aug. (4) Acute DVT (deep venous thrombosis): Will continue eliquis (5) Status post implantation of automatic cardioverter/defibrillator (AICD): -Underwent procedure on 11/01/2019, has not yet seen cardiology and follow up as outpatient -Cardiology consulted-Dr. Tian -Trend troponins x2 more sets, initial was negative with intermittent chest pain in location of the pain itself although unlikely ACS -EKG reviewed which is essentially unchanged compared to previous -Continue Lasix 40 mg QAM, metoprolol succinate 200 mg QAM, Entresto BID--not take morning medications today. (6) LV (left ventricular) mural thrombus: (7) Nonischemic cardiomyopathy: history of above. (8) CAD (coronary artery disease), [place] coronary artery: (9) LBBB (left bundle branch block): (10) Chronic systolic (congestive) heart failure: -Continue medications as above -We will hold off on 2D echo at this time, unlikely that there would be a significant change in echocardiogram only 1 week after pacemaker insertion compared to last one done in August 2019. (11) Hypertension: -will hold BP meds today. (12) Diabetes mellitus type 2, uncontrolled: -Last A1c = 6.01/2019, recheck now -Glucose elevated at 213 upon admission, holding metformin, will start on ISS with Accu-Cheks AC at bedtime -Allow HH/Dm diet (13) Hypercholesterolemia: -Last fasting lipid panel was done in April 2019, well controlled, not on statin therapy (14) Anemia: hemoglobin has been gradually decreasing. will monitor. may give blood. -Last TSH checked in April and was normal at 2.640. (15) Arthralgia of multiple sites: -Concerning for polymyalgia rheumatica with multiple chronic arthritic joints inflammatory markers are elevated. -Continue supportive and topical therapy as above for neck pain (16) DVT prophylaxis: - marlene trujillo CODE: DNR Admission and Anticipated Discharge Date Admission Date: November 10, 2019 Subjective Patient reports feeling about the same. She states she continues to be fatigued. UPdated family on the phone. Review of Systems Review of Systems: All systems reviewed & are unremarkable except as noted in HPI & below Physical Exam Physical Exam: General: awake, alert, no apparent distress Head: Normocephalic, atraumatic ENT: PERRL, EOMI, no pharyngeal exudate Chest: Clear to auscultation, on 2L via NC, + faint crackles bibasilarly otherwise no adventitious breath sounds Cardiac: + Left chest wall incision site appears to be healing well, no surrounding erythema, no purulent drainage, nontender with palpation over pacemaker, regular rate and rhythm, normal peripheral pulses, good capillary refill Abdominal: NABS x 4 quadrants, soft, nondistended, nontender to palpation, no rebound, guarding or tenderness Extremities: Normal inspection, no peripheral edema or erythema, calfs nontender to palpation Psych: Normal mood and affect Neuro: AAO x 3, strength intact bilaterally and rated 5/5, + pain elicited with neck external rotation to the left, no motor deficits, speech is clear, no peripheral sensory deficits Skin: no rash or erythema Results & Data Results & Data ([facility]) Vital Signs (Past 12 Hours) Vital Signs Temp Pulse Resp BP Pulse Ox 11/11/19 18:52 82 11/11/19 16:50 36.9 C 76 18 100/59 L 95 11/11/19 16:15 36.9 C 75 104/59 L 97 11/11/19 15:25 36.8 C 79 18 89/49 L 96 11/11/19 14:42 36.7 C 83 18 97/53 L 95 11/11/19 14:31 36.8 C 82 18 107/53 L 96 PG Care Time/CCT Total # of Minutes Spent Total Time Spent with Patient: Total time spent is greater than 50% in coordination of care (as documented) at patient's floor/unit and/or counseling patient: Coding Level of Care Code 39689 Subseq Hosp Care Lvl 3 Diagnoses Sepsis associated hypotension A41.9; I95.9 Acute neck pain M54.2 Pancytopenia D61.818 Acute DVT (deep venous thrombosis) I82.409 Status post implantation of automatic cardioverter/defibrillator (AICD) Z95.810 LV (left ventricular) mural thrombus I51.3 Nonischemic cardiomyopathy I42.8 CAD (coronary artery disease), [place] coronary artery I25.10 LBBB (left bundle branch block) I44.7 Chronic systolic (congestive) heart failure I50.22 Hypertension I10 Diabetes mellitus type 2, uncontrolled E11.65 Hypercholesterolemia E78.00 Anemia D64.9 Arthralgia of multiple sites M25.50 DVT prophylaxis Z29.9 Time Spent (min) 45
[2019-11-11] MEDS: APIXABAN 5 MG TABLET PO SCH (21:41)
[2019-11-12] MEDS: PIPERACILLIN/TAZOBACTAM 3.375 GM in DEXTROSE 5% 100 ML IV SCH ×2 (05:07→11:08)
[2019-11-12] MEDS: DICLOFENAC SOD 1% GEL 100 GM TUBE EXT SCH ×4 (05:07→23:44)
[2019-11-12] MEDS: HYDROCODONE/ACETAMOPHEN 5/325MG TAB PO PRN (05:27)
[2019-11-12 08:03] LABS: Basophils # (auto) 0.02 K/uL (0-0.2); Basophils % (auto) 0.4 %; Eosinophils # (auto) 0.27 K/uL (0-0.5); Eosinophils % (auto) 5.3 %; Hematocrit (blood only) 28.8 % (37-47); Hemoglobin 9.3 g/dL (12.0-16.0); Lymphocytes # (auto) 1.23 K/uL (1.2-3.4); Lymphocytes % (auto) 24.3 %; Mean Corpuscular Hemoglobin 29.6 pg (25-34); Mean Corpuscular Hgb Conc 32.3 g/dL (32-36); Mean Corpuscular Volume 91.7 fL (80-100); Mean Platelet Volume 10.2 fL (7.4-10.4); Monocytes # (auto) 0.46 K/uL (0.11-0.59); Monocytes % (auto) 9.1 %; Neutrophils # (auto) 3.09 K/uL (1.4-6.5); Neutrophils % (auto) 60.9 %; Platelet Count 150 K/uL (130-400); RDW Coefficient of Variation 13.9 % (11.5-14.5); RDW Standard Deviation 46.6 fL (36.4-46.3); Red Blood Count 3.14 M/uL (4.2-5.4); White Blood Count 5.07 K/uL (4.8-10.8)
[2019-11-12] MEDS: APIXABAN 5 MG TABLET PO SCH ×2 (08:30→22:21)
[2019-11-12 08:32] LABS: Albumin Level 2.2 gm/dl (3.4-5.0); Calcium 9.3 mg/dl (8.5-10.1); Creatinine Clr Calc Pharmacy 51.5 ml/min; Est GFR (African American) 76.1; Est GFR (Non-African American) 65.7
[2019-11-12] MEDS: PANTOprazole 40 MG in SYRINGE 0 ML IV SCH ×2 (08:34→22:20)
[2019-11-12 08:36] LABS: Albumin Globulin Ratio 0.5 (0.9-2); Bilirubin,Total 0.4 mg/dl (0.2-1); Globulin 4.1 gm/dl (2.5-4.0); Total Protein 6.3 gm/dl (6.4-8.2)
[2019-11-12] MEDS: INSULIN ASPART 100 UNITS/ML 3 ML PEN SC SCH ×4 (09:04→22:21)
--- NOTE | 2019-11-12 12:32 | Communication Note ---
Date of Service: November 12, 2019 GI brief note on PPI and eliquis. Hgb improving slowly. VSS. Recs: --c/w PPI BID -c/w eliquis/AC for her DVT --supportive care rest as per primary team Moo Bell MD Gastroenterology
[2019-11-12 13:30] LABS: SARS CoV2 RNA (COVID-19) NOT DETECTED (NOT DETECTED)
[2019-11-12] MEDS: AMOXICILLIN/CLAVULANATE 875 MG TAB PO SCH (17:10)
--- NOTE | 2019-11-12 20:19 | Hospitalist Progress Note ---
Date of Service November 12, 2019 Assessment & Plan (1) Sepsis associated hypotension: Will continue to treat UTI but will transition to zosyn. Procal has normalized. BP and kidney failure improved. However, this could also be attributed to holding BP meds. Differential may be abscess of neck vs UTI. Blood cultures were ordered. COVID 19 test is negative. (2) Acute neck pain: -Admit to [facility] with telemetry -Check CT of the neck: showed: -Multilevel degenerative changes as above includes a large posterior disc osteophyte complex at C4-C5 resulting in severe right lateral recess and severe central canal stenosis. Additionally, note is made of multilevel foraminal narrowing. -Voltaren gel, baclofen low-dose, [place], Tylenol, heating pad for pain relief - had received fentanyl in ER with some relief. consulted ortho. (3) Pancytopenia: Patient is having pancytopenia. Likely source is from sepsis. Doubt HIT. Ordered HIT panel. Stopped heparin. Continue Eliquis. Still concern over possible GI bleed, however hemoglobin has been relatively stable. Hehmoglobin however did not increase as anticipated.. D/W GI senior information security consultant, will continue eliquis, will place on PPI. iT APPEARS AFTER DISCUSSING with daughter that she was on xarelto, however she last picked up a dose in aug. (4) Acute DVT (deep venous thrombosis): Will continue eliquis (5) Status post implantation of automatic cardioverter/defibrillator (AICD): -Underwent procedure on 11/01/2019, has not yet seen cardiology and follow up as outpatient -Cardiology consulted-Dr. Tian -Trend troponins x2 more sets, initial was negative with intermittent chest pain in location of the pain itself although unlikely ACS -EKG reviewed which is essentially unchanged compared to previous -Continue Lasix 40 mg QAM, metoprolol succinate 200 mg QAM, Entresto BID--not take morning medications today. (6) LV (left ventricular) mural thrombus: (7) Nonischemic cardiomyopathy: history of above. (8) CAD (coronary artery disease), [place] coronary artery: (9) LBBB (left bundle branch block): (10) Chronic systolic (congestive) heart failure: -Continue medications as above -We will hold off on 2D echo at this time, unlikely that there would be a significant change in echocardiogram only 1 week after pacemaker insertion compared to last one done in August 2019. (11) Hypertension: -will hold BP meds today. (12) Diabetes mellitus type 2, uncontrolled: -Last A1c = 6.01/2019, recheck now -Glucose elevated at 213 upon admission, holding metformin, will start on ISS with Accu-Cheks AC at bedtime -Allow HH/Dm diet (13) Hypercholesterolemia: -Last fasting lipid panel was done in April 2019, well controlled, not on statin therapy (14) Anemia: hemoglobin has been gradually decreasing. will monitor. may give blood. -Last TSH checked in April and was normal at 2.640. (15) Arthralgia of multiple sites: -Concerning for polymyalgia rheumatica with multiple chronic arthritic joints inflammatory markers are elevated. -Continue supportive and topical therapy as above for neck pain (16) DVT prophylaxis: - marlene trujillo CODE: DNR Admission and Anticipated Discharge Date Admission Date: November 10, 2019 Subjective 84 yo female reports feeling mildly better today. Her main concern is in regards to the news that her son from [place]. She staes though that she has more enegry toda than yesterday and denies an pain. Review of Systems Review of Systems: All systems reviewed & are unremarkable except as noted in HPI & below Physical Exam Physical Exam: General: awake, alert, no apparent distress Head: Normocephalic, atraumatic ENT: PERRL, EOMI, no pharyngeal exudate Chest: Clear to auscultation, on 2L via NC, + faint crackles bibasilarly otherwise no adventitious breath sounds Cardiac: + Left chest wall incision site appears to be healing well, no surrounding erythema, no purulent drainage, nontender with palpation over pacemaker, regular rate and rhythm, normal peripheral pulses, good capillary refill Abdominal: NABS x 4 quadrants, soft, nondistended, nontender to palpation, no rebound, guarding or tenderness Extremities: Normal inspection, no peripheral edema or erythema, calfs nontender to palpation Psych: Normal mood and affect Neuro: AAO x 3, strength intact bilaterally and rated 5/5, + pain elicited with neck external rotation to the left, no motor deficits, speech is clear, no peripheral sensory deficits Skin: no rash or erythema Results & Data Results & Data ([facility]) Vital Signs (Past 12 Hours) Vital Signs Temp Pulse Pulse Resp BP Pulse Ox 11/12/19 19:58 36.7 C 93 H 18 126/67 97 11/12/19 15:40 80 11/12/19 14:52 36.4 C L 82 20 115/70 95 11/12/19 11:07 36.8 C 78 18 109/68 99 11/12/19 09:00 72 PG Care Time/CCT Total # of Minutes Spent Total Time Spent with Patient: Total time spent is greater than 50% in coordination of care (as documented) at patient's floor/unit and/or counseling patient: Coding Level of Care Code 50431 Subseq Hosp Care Lvl 3 Diagnoses Sepsis associated hypotension A41.9; I95.9 Acute neck pain M54.2 Pancytopenia D61.818 Acute DVT (deep venous thrombosis) I82.409 Status post implantation of automatic cardioverter/defibrillator (AICD) Z95.810 LV (left ventricular) mural thrombus I51.3 Nonischemic cardiomyopathy I42.8 CAD (coronary artery disease), [place] coronary artery I25.10 LBBB (left bundle branch block) I44.7 Chronic systolic (congestive) heart failure I50.22 Hypertension I10 Diabetes mellitus type 2, uncontrolled E11.65 Hypercholesterolemia E78.00 Anemia D64.9 Arthralgia of multiple sites M25.50 DVT prophylaxis Z29.9 Time Spent (min) 35
[2019-11-13] MEDS: DICLOFENAC SOD 1% GEL 100 GM TUBE EXT SCH ×3 (06:56→17:04)
[2019-11-13 07:32] LABS: Est GFR (African American) 90.4
[2019-11-13] MEDS: INSULIN ASPART 100 UNITS/ML 3 ML PEN SC SCH ×4 (08:02→21:08)
[2019-11-13] MEDS: APIXABAN 5 MG TABLET PO SCH ×2 (08:23→21:08)
[2019-11-13] MEDS: AMOXICILLIN/CLAVULANATE 875 MG TAB PO SCH ×2 (08:23→17:04)
[2019-11-13] MEDS: PANTOprazole 40 MG in SYRINGE 0 ML IV SCH (08:26)
[2019-11-13 12:09] LABS: Hematocrit (blood only) 31.8 % (37-47); Hemoglobin 10.2 g/dL (12.0-16.0); Mean Corpuscular Hemoglobin 29.5 pg (25-34); Mean Corpuscular Volume 91.9 fL (80-100); Mean Platelet Volume 9.9 fL (7.4-10.4); Platelet Count 205 K/uL (130-400); RDW Coefficient of Variation 13.6 % (11.5-14.5); Red Blood Count 3.46 M/uL (4.2-5.4); White Blood Count 4.51 K/uL (4.8-10.8)
[2019-11-13 12:16] LABS: Mean Corpuscular Hgb Conc 32.1 g/dL (32-36)
[2019-11-13 12:32] LABS: Albumin Globulin Ratio 0.6 (0.9-2); Albumin Level 2.6 gm/dl (3.4-5.0); BUN Creatinine Ratio 15.9 (10-20); Bilirubin,Total 0.4 mg/dl (0.2-1); Calcium 10.1 mg/dl (8.5-10.1); Creatinine Clr Calc Pharmacy 56.6 ml/min; Est GFR (Non-African American) 74.2; Globulin 4.7 gm/dl (2.5-4.0); Potassium 4.1 mmol/L (3.5-5.1); Total Protein 7.3 gm/dl (6.4-8.2)
[2019-11-13] MEDS ORDERED: METOPROLOL SUCC 50MG EXT REL TAB PO ONE (16:45)
[2019-11-13] MEDS: PANTOprazole 40 MG TAB PO SCH (21:09)
--- NOTE | 2019-11-13 22:29 | Hospitalist Progress Note ---
Date of Service November 13, 2019 Assessment & Plan (1) Sepsis associated hypotension: Will continue to treat UTI but will transition to augmentin from zosyn. Procal has normalized. BP and kidney failure improved. However, this could also be attributed to holding BP meds. Differential may be abscess of neck vs UTI. Blood cultures were ordered. COVID 19 test is negative. (2) Acute neck pain: -Admit to [facility] with telemetry -Check CT of the neck: showed: -Multilevel degenerative changes as above includes a large posterior disc osteophyte complex at C4-C5 resulting in severe right lateral recess and severe central canal stenosis. Additionally, note is made of multilevel foraminal narrowing. -Voltaren gel, baclofen low-dose, [place], Tylenol, heating pad for pain relief - had received fentanyl in ER with some relief. -will hold off NSAIDS. consulted ortho. Appreciate input. (3) Pancytopenia: Patient is having pancytopenia. Likely source is from sepsis. Doubt HIT. Ordered HIT panel. Stopped heparin. Continue Eliquis. Still concern over possible GI bleed, however hemoglobin has been relatively stable. Hehmoglobin however did not increase as anticipated.. D/W GI professional employer consultant, will continue eliquis, will place on PPI. iT APPEARS AFTER DISCUSSING with daughter that she was on xarelto, however she last picked up a dose in aug. (4) Acute DVT (deep venous thrombosis): Will continue eliquis (5) Status post implantation of automatic cardioverter/defibrillator (AICD): -Underwent procedure on 11/01/2019, has not yet seen cardiology and follow up as outpatient -Cardiology consulted-Dr. Tian -Trend troponins x2 more sets, initial was negative with intermittent chest pain in location of the pain itself although unlikely ACS -EKG reviewed which is essentially unchanged compared to previous -Continue Lasix 40 mg QAM, metoprolol succinate 200 mg QAM, Entresto BID- held BP meds due to hypotension. will slowly resume them. starting beta kim. will restart arb entresto tomorrow. (6) LV (left ventricular) mural thrombus: (7) Nonischemic cardiomyopathy: history of above. (8) CAD (coronary artery disease), [place] coronary artery: (9) LBBB (left bundle branch block): (10) Chronic systolic (congestive) heart failure: -Continue medications as above -We will hold off on 2D echo at this time, unlikely that there would be a significant change in echocardiogram only 1 week after pacemaker insertion compared to last one done in August 2019. (11) Hypertension: as stated above. restarting beta kim today. (12) Diabetes mellitus type 2, uncontrolled: -Last A1c = 6.01/2019, recheck now -Glucose elevated at 213 upon admission, holding metformin, will start on ISS with Accu-Cheks AC at bedtime -Allow HH/Dm diet (13) Hypercholesterolemia: -Last fasting lipid panel was done in April 2019, well controlled, not on statin therapy (14) Anemia: Concern over Upper GI bleed. Appears to have spontaneously resolved. H/H appears to have stabilzed. will conitnue to monitor H/H will need to closely monitor given use of Eliquis. may give blood. -Last TSH checked in April and was normal at 2.640. (15) Arthralgia of multiple sites: -Concerning for polymyalgia rheumatica with multiple chronic arthritic tashi nts inflammatory markers are elevated. -Continue supportive and topical therapy as above for neck pain (16) DVT prophylaxis: - [place] CODE: DNR will obtain repeat Physical therapy eval. Admission and Anticipated Discharge Date Admission Date: November 10, 2019 Subjective Patient reports feeling much better today. Updated family Review of Systems Review of Systems: All systems reviewed & are unremarkable except as noted in HPI & below Physical Exam Physical Exam: General: awake, alert, no apparent distress Head: Normocephalic, atraumatic ENT: PERRL, EOMI, no pharyngeal exudate Chest: Clear to auscultation, now on room air, + faint crackles bibasilarly otherwise no adventitious breath sounds Cardiac: + Left chest wall incision site appears to be healing well, no surrounding erythema, no purulent drainage, nontender with palpation over pacemaker, regular rate and rhythm, normal peripheral pulses, good capillary refill Abdominal: NABS x 4 quadrants, soft, nondistended, nontender to palpation, no rebound, guarding or tenderness Extremities: Normal inspection, no peripheral edema or erythema, calfs nontender to palpation Psych: Normal mood and affect Neuro: AAO x 3, strength intact bilaterally and rated 5/5, + pain elicited with neck external rotation to the left, no motor deficits, speech is clear, no peripheral sensory deficits Skin: no rash or erythema Results & Data Results & Data ([facility]) Vital Signs (Past 12 Hours) Vital Signs Temp Pulse Pulse Resp BP Pulse Ox 11/13/19 19:16 37.3 C 90 20 114/71 95 11/13/19 17:26 88 11/13/19 14:43 36.9 C 68 20 129/74 97 11/13/19 13:58 93 H 11/13/19 11:00 37.0 C 88 18 121/74 97 PG Care Time/CCT Total # of Minutes Spent Total Time Spent with Patient: Total time spent is greater than 50% in coordination of care (as documented) at patient's floor/unit and/or counseling patient: Coding Level of Care Code 57744 Subseq Hosp Care Lvl 3 Diagnoses Sepsis associated hypotension A41.9; I95.9 Acute neck pain M54.2 Pancytopenia D61.818 Acute DVT (deep venous thrombosis) I82.409 Status post implantation of automatic cardioverter/defibrillator (AICD) Z95.810 LV (left ventricular) mural thrombus I51.3 Nonischemic cardiomyopathy I42.8 CAD (coronary artery disease), [place] coronary artery I25.10 LBBB (left bundle branch block) I44.7 Chronic systolic (congestive) heart failure I50.22 Hypertension I10 Diabetes mellitus type 2, uncontrolled E11.65 Hypercholesterolemia E78.00 Anemia D64.9 Arthralgia of multiple sites M25.50 DVT prophylaxis Z29.9 Time Spent (min) 35
[2019-11-14] MEDS: HYDROCODONE/ACETAMOPHEN 5/325MG TAB PO PRN (01:15)
[2019-11-14] MEDS: DICLOFENAC SOD 1% GEL 100 GM TUBE EXT SCH ×3 (01:15→11:34)
[2019-11-14] MEDS: APIXABAN 5 MG TABLET PO SCH (08:14)
[2019-11-14] MEDS: PANTOprazole 40 MG TAB PO SCH (08:14)
[2019-11-14] MEDS: AMOXICILLIN/CLAVULANATE 875 MG TAB PO SCH ×2 (08:15→16:46)
[2019-11-14 08:44] LABS: Hematocrit (blood only) 31.7 % (37-47); Hemoglobin 10.4 g/dL (12.0-16.0); Mean Corpuscular Hemoglobin 30.5 pg (25-34); Mean Corpuscular Hgb Conc 32.8 g/dL (32-36); Mean Platelet Volume 9.7 fL (7.4-10.4); Platelet Count 223 K/uL (130-400); RDW Coefficient of Variation 13.5 % (11.5-14.5); RDW Standard Deviation 45.1 fL (36.4-46.3); Red Blood Count 3.41 M/uL (4.2-5.4); White Blood Count 4.45 K/uL (4.8-10.8)
[2019-11-14 09:03] LABS: BUN Creatinine Ratio 14.2 (10-20); Calcium 9.9 mg/dl (8.5-10.1); Creatinine Clr Calc Pharmacy 63.6 ml/min; Est GFR (African American) 94.9; Est GFR (Non-African American) 81.9; Potassium 3.7 mmol/L (3.5-5.1)
[2019-11-14] MEDS: INSULIN ASPART 100 UNITS/ML 3 ML PEN SC SCH ×2 (09:36→12:42)
[2019-11-14] MEDS: METOPROLOL SUCC 50MG EXT REL TAB PO SCH (09:39)
[2019-11-14] MEDS: SACUBITRIL-VALSARTAN 97-103 MG TAB PO SCH (11:34)
--- NOTE | 2019-11-17 23:42 | Discharge Summary ---
Date of Service November 14, 2019 Admission HPI Per Admitting Provider This is a 84 yo F with PMHx of nonischemic cardiomyopathy, mitral regurgitation, chronic systolic CHF, left bundle branch block, HTN, HLD, DM type II, arthralgia of multiple joints, anxiety, and GERD, had been feeling increased weakness as well as intermittent shortness of breath, orthopnea and worsened since April 2019. She had most recently had an echocardiogram which was found to show an EF of 25-30% and underwent elective pacemaker/defibrillator placement on 11/01/2019. Since the pacemaker/defibrillator placement, she has had progressive weakness, shortness of breath with exertional activities, fatigue and a left-sided neck pain. She reports that pain goes down into her left arm as well as up into the left side of her neck and into her jaw and it is intermittent. She states this began approximately 1 week ago after the surgical procedure. She has taken an occasional Tylenol which aids in relief of the pain. She reports having one episode of diarrhea 2 days ago, took an Imodium and it stopped. Initially the patient's daughter was living with her right after her surgery, but only stayed for a few days. She has been social distancing other than her daughter being in her home to help care for her. Patient reports going to the grocery store yesterday to nut picker 3 items, but felt so fatigued that she could barely check out and get back out to her car. She also feels significantly weak and has difficulty getting up out of a chair, and when she does she intermittently feels lightheaded. Denies any recent falls, LOC. She does not feel that she could go home and care for herself currently. Denies any fevers, sweats or chills or any other acute complaints. Patient did not take her morning medication today due to weakness. Principal Diagnosis anemia Discharge Exam General: awake, alert, no apparent distress Head: Normocephalic, atraumatic ENT: PERRL, EOMI, no pharyngeal exudate Chest: Clear to auscultation, now on room air, + faint crackles bibasilarly otherwise no adventitious breath sounds Cardiac: + Left chest wall incision site appears to be healing well, no surrounding erythema, no purulent drainage, nontender with palpation over pacemaker, regular rate and rhythm, normal peripheral pulses, good capillary refill Abdominal: NABS x 4 quadrants, soft, nondistended, nontender to palpation, no rebound, guarding or tenderness Extremities: Normal inspection, no peripheral edema or erythema, calfs nontender to palpation Psych: Normal mood and affect Neuro: AAO x 3, strength intact bilaterally and rated 5/5, + pain elicited with neck external rotation to the left, no motor deficits, speech is clear, no peripheral sensory deficits Skin: no rash or erythema Discharge Data Allergies Allergy/AdvReac Type Severity Reaction Status Date / Time Azo-Gantrisin TABS Allergy Unknown Unknown Uncoded 11/08/19 08:55 Dust Mite Allergy Unknown Unknown Uncoded 11/08/19 08:55 Statins Allergy Unknown Unknown Uncoded 11/08/19 08:55 Sulfa Drugs Allergy Unknown Unknown Uncoded 11/08/19 08:55 Consultations 11/08/19 12:48 ED Decision to Admit Stat 11/08/19 15:56 Consult Cardiology Routine Consult Case Management - Discharge Planning Routine 11/09/19 13:23 Consult Orthopedic Surgery Routine 11/11/19 12:43 Consult Infectious Diseases Routine 11/11/19 13:55 Consult Gastroenterology Routine Ordered Studies 11/08/19 16:30 CT cervical spine wo con Stat 11/09/19 13:00 US venous doppler UE LT Stat Hospital Course (1) Sepsis associated hypotension: Will continue to treat UTI but will transition to augmentin from zosyn. Procal has normalized. BP and kidney failure improved. However, this could also be attributed to holding BP meds. Differential may be abscess of neck vs UTI. No evidence of abscess on imaging. Blood cultures were ordered. COVID 19 test is negative. (2) Acute neck pain: -Admit to [facility] with telemetry -Check CT of the neck: showed: -Multilevel degenerative changes as above includes a large posterior disc os teophyte complex at C4-C5 resulting in severe right lateral recess and severe central canal stenosis. Additionally, note is made of multilevel foraminal narrowing. -Voltaren gel, baclofen low-dose, [place], Tylenol, heating pad for pain relief - had received fentanyl in ER with some relief. -will hold off NSAIDS. consulted ortho. Appreciate input. (3) Pancytopenia: Patient is having pancytopenia. Likely source is from sepsis. Ordered HIT panel: serotonin assay was positive. Stopped heparin. Continue Eliquis. Still concern over possible GI bleed, however hemoglobin has been relatively stable. Hemoglobin did improve. D/W GI business analyst consultant, will continue eliquis, will place on PPI. iT APPEARS AFTER DISCUSSING with daughter that she was on xarelto, however she last picked up a dose in aug. This was stopped after cardiac mural thrombosis had subsided. (4) Acute DVT (deep venous thrombosis): Will continue eliquis (5) Status post implantation of automatic cardioverter/defibrillator (AICD): -Underwent procedure on 11/01/2019, has not yet seen cardiology and follow up as outpatient -Cardiology consulted-Dr. Tian -Trend troponins x2 more sets, initial was negative with intermittent chest pain in location of the pain itself although unlikely ACS -EKG reviewed which is essentially unchanged compared to previous -Continue Lasix 40 mg QAM, metoprolol succinate 200 mg QAM, Entresto BID- held BP meds due to hypotension. will slowly resume them. starting beta kim. will restart arb entresto on discharge.. (6) LV (left ventricular) mural thrombus: (7) Nonischemic cardiomyopathy: history of above. (8) CAD (coronary artery disease), [place] coronary artery: (9) LBBB (left bundle branch block): (10) Chronic systolic (congestive) heart failure: -Continue medications as above -We will hold off on 2D echo at this time, unlikely that there would be a significant change in echocardiogram only 1 week after pacemaker insertion compared to last one done in August 2019. (11) Hypertension: as stated above. restarting beta kim today. (12) Diabetes mellitus type 2, uncontrolled: -Last A1c = 6.01/2019, recheck now -Glucose elevated at 213 upon admission, holding metformin, will start on ISS with Accu-Cheks AC at bedtime -Allow HH/Dm diet (13) Hypercholesterolemia: -Last fasting lipid panel was done in April 2019, well controlled, not on statin therapy (14) Anemia: Concern over Upper GI bleed. Appears to have spontaneously resolved. H/H appears to have stabilzed. will conitnue to monitor H/H will need to closely monitor given use of Eliquis. Improved after blood transfusion. -Last TSH checked in April and was normal at 2.640. (15) Arthralgia of multiple sites: -Concerning for polymyalgia rheumatica with multiple chronic arthritic joints inflammatory markers are elevated. -Continue supportive and topical therapy as above for neck pain (16) DVT prophylaxis: - teds, scds CODE: DNR Total Time Total Time Spent Total Time Spent (In Minutes): 40 Total Time Includes: Examination of the Patient, Discharge Planning and Medication Reconciliation Discharge Plan Discharge Items Patient Disposition: Home - Self-Care Reason For Visit: CHEST PAIN,FATIGUE,WEAKNESS Discharge Diagnosis: Anemia Condition on Discharge: Good Activity: Resume your previous activity Non-emergency contact: Primary Care Provider Call non-emergency contact if: you have any medication questions Follow-up/Referrals: Nixon Ordoñez III, MD [Primary Care Provider] - Diet: Carb Consistent or DM2 and Heart Healthy Addtl Attending Provider Instructions: Recommend to check blood count weekly. Continue antibiotics for 3 more days. First dose tonight. Recommend followup with PCP in 1-2 weeks. Pending Studies at Discharge: No Stand-Alone Forms: [employer] [facility], Smoking Cessation Medications and DC Order Prescriptions: New acetaminophen [Mapap (acetaminophen)] 325 mg Tablet 650 mg PO Q4H PRN (Reason: pain) Qty: 30 RF: 0 hydrocodone-acetaminophen [[place]] 5-325 mg Tablet 1 tab PO Q6H PRN (Reason: severe pain) Qty: 15 RF: 0 Continued (DME) blood-glucose meter [OneTouch Verio Flex Start] Kit See Rx Instructions .ROUTE .MEDSUPPLY Qty: 1 RF: 0 (DME) OneTouch Verio Strip See Rx Instructions .ROUTE .MEDSUPPLY Qty: 200 RF: 3 (DME) lancets [OneTouch Delica Lancets] 33 gauge misc See Rx Instructions .ROUTE .MEDSUPPLY Qty: 200 RF: 3 (DME) Rollator Walker Qty: 1 RF: 0 metoprolol succinate 200 mg tablet extended release 24 hr 200 mg PO QAM Qty: 90 RF: 3 Entresto 97-103 mg tablet 1 tab PO BID Qty: 180 RF: 3 potassium chloride 10 mEq tablet extended release 10 meq PO BID RF: 0 No Action metformin 500 mg tablet 500 mg PO BID RF: 0 diclofenac sodium [Voltaren] 1 % gel 2 gm TOP TID PRN (Reason: neck pain) Qty: 100 RF: 2 Eliquis 5 mg tablet 10 mg PO BID Qty: 60 RF: 4 pantoprazole 40 mg tablet,delayed release (DR/EC) 40 mg PO DAILY Qty: 30 RF: 3 furosemide 80 mg tablet 40 mg PO .COMPLEX Qty: 0 RF: 3 Discharge Orders: Discharge Order (Routine); Ordered 11/14/19 Ordered By: Jonathan Fuller/Other Patient Handouts: Diabetes Type 2 Managing Admission Data Admit Date/Time: 11/10/19 09:28 Attending Provider: Jonathan Johnson Admit Provider: Noah Rojas Primary Care Provider: Nixon Ordoñez III Other Providers: Noah Rojas ; Jagjit Tian ; Rob Deleon ; Mckenna Haile ; Moo Bell ; Nadia,[facility] Other Interventions: Discharge Summary Assessment (RN) Last Done: 11/14/19 16:34 DC Date/Time DO NOT enter until pt leaves facility: 11/14/19 17:01 Coding Level of Care Code D/C Day Management >30 mins Diagnoses Sepsis associated hypotension A41.9; I95.9 Acute neck pain M54.2 Pancytopenia D61.818 Acute DVT (deep venous thrombosis) I82.409 Status post implantation of automatic cardioverter/defibrillator (AICD) Z95.810 LV (left ventricular) mural thrombus I51.3 Nonischemic cardiomyopathy I42.8 CAD (coronary artery disease), [place] coronary artery I25.10 LBBB (left bundle branch block) I44.7 Chronic systolic (congestive) heart failure I50.22 Hypertension I10 Diabetes mellitus type 2, uncontrolled E11.65 Hypercholesterolemia E78.00 Anemia D64.9 Arthralgia of multiple sites M25.50 DVT prophylaxis Z29.9 Time Spent (min) 32
== END 2019-11-14 17:01 | disposition home health service (06) | DRG 872 ==
LOC: 2N 07:28 → ED 07:28 → SUATTDRO 13:36 → 2N 14:05

== ENCOUNTER 2021-07-12 11:40 | Inpatient (IN) ==
[2021-07-12] MEDS ORDERED: SODIUM CHLORIDE 0.9% 1000ML 1,000 ML IV SCH (12:15)
[2021-07-12] MEDS ORDERED: SODIUM CHLORIDE 0.9% 500 ML IV SCH (12:15)
[2021-07-12 12:28] LABS: Basophils # (auto) 0.01 K/uL (0-0.2); Basophils % (auto) 0.2 %; Eosinophils # (auto) 0.04 K/uL (0-0.5); Eosinophils % (auto) 0.8 %; Hematocrit (blood only) 37.6 % (37-47); Hemoglobin 12.3 g/dL (12.0-16.0); Immature Granulocytes # (auto) 0.01 K/uL (0.00-0.02); Immature Granulocytes % (auto) 0.2 %; Lymphocytes % (auto) 22.4 %; Mean Corpuscular Hemoglobin 31.9 pg (25-34); Mean Corpuscular Hgb Conc 32.7 g/dL (32-36); Mean Corpuscular Volume 97.4 fL (80-100); Mean Platelet Volume 11.6 fL (7.4-10.4); Monocytes # (auto) 0.49 K/uL (0.11-0.59); Neutrophils # (auto) 3.25 K/uL (1.4-6.5); Neutrophils % (auto) 66.4 %; Platelet Count 140 K/uL (130-400); RDW Coefficient of Variation 12.8 % (11.5-14.5); RDW Standard Deviation 45.7 fL (36.4-46.3); Red Blood Count 3.86 M/uL (4.2-5.4)
[2021-07-12 12:39] LABS: Alanine Aminotransferase 35 (12-78); Albumin Level 3.3 gm/dl (3.4-5.0); Aspartate Aminotransferase 76 U/L (15-37); Blood Urea Nitrogen 25 mg/dl (7-18); Calcium 9.4 mg/dl (8.5-10.1); Carbon Dioxide 26 mmol/L (21-32); Chloride 107 mmol/L (98-107); Creatinine Clr Calc Pharmacy 44.1 ml/min; Est GFR (African American) 61.8 ml/min; Est GFR (Non-African American) 53.3 ml/min; Glucose 142 mg/dl (70-99); Magnesium 1.8 mg/dl (1.8-2.4); Potassium 3.4 mmol/L (3.5-5.1); Sodium 140 mmol/L (136-145)
--- NOTE | 2021-07-12 12:41 | XRay Report ---
XR chest 1V portable CLINICAL HISTORY: weakness COMPARISON STUDY: Chest radiograph November 10, 2019. FINDINGS: Left subclavian pacer/AICD is in place. Cardiomegaly is unchanged. A hiatal hernia is again noted. There is no evidence for pulmonary edema. Bibasilar opacities are similar to prior exam and f avor atelectasis. No pneumothorax or pleural effusion is present. IMPRESSION: 1. No acute cardiopulmonary findings. No change in appearance of the chest. 2. Bibasilar opacities which favor atelectasis. 3. Cardiomegaly without evidence for pulmonary edema. ACT 112: Negative or not required by law. Electronically signed by: Ken Sahu M.D. 07/12/2021 12:39 PM
[2021-07-12 12:52] LABS: Albumin Globulin Ratio 0.8 (0.9-2); Alkaline Phosphatase 54 U/L (45-117); Bilirubin,Total 0.6 mg/dl (0.2-1); Creatine Kinase 1495 U/L (26-192); Globulin 4.1 gm/dl (2.5-4.0); Total Protein 7.4 gm/dl (6.4-8.2); Troponin I < 0.015 ng/ml (0-0.045)
--- NOTE | 2021-07-12 13:37 | Emergency Department Note ---
Impression & Plan Generalized weakness, Rhabdomyolysis ED Provider Note INFORMANT: Patient ED PROVIDER(S): Demetrio Rey MD CHIEF COMPLAINT: Weakness PLAN: Disposition: Admitted Condition: Good Outpatient prescription management: none Referral: None MEDICAL DECISION MAKING: Patient presented because of generalized weakness. She had no focal findings. This has been a progressive issue over the last several days. She lives alone and is not doing well taking care of herself. Physical examination revealed no focal findings. She had reflexes. The patient had an unremarkable CBC. She had mild dehydration on chemistry panel and was found to have a significant elevation of her total CK at 1495. Patient's Covid testing was negative. Urinalysis is pending. Patient was hydrated. She will need further management in the hospital. Consultation was made with Dr. Rosario of the hospitalist [facility]. Patient was evaluated in the ER and admitted for further management. Triage Nursing notes reviewed and agree them. Vital Signs: reviewed and remarkable for no significant abnormalities Differential diagnosis: Infection, dehydration, metabolic abnormality, hypo/hyperglycemia, electrolyte disturbance, anemia, hypoxia, cardiac sources, intracerebral event, toxicologic, neurologic, as well as other pathologies. Diagnostics interpreted by me: ECG: Atrial sensed ventricular paced rhythm at [address] elevation. Cardiac Monitoring: Cardiac monitoring ordered by me: The patient was placed on continuous cardiac monitoring and observed. It revealed a paced rhythm at 74 bpm. Imaging studies: Chest x-ray. Findings: A chest x-ray was performed and revealed no pneumothorax, effusion, infiltrate, pulmonary edema, free air under the diaphragm, or wide mediastinum. Impression: No acute disease. HPI: The patient is a 85 year old female who presents to the Emergency Room with complaints of weakness. This started 2 to 3 days ago and is worsening. The patient also notes the following associated symptoms, none. The patient has found no relieving factors. Current pain is rated as 0/10. States her arms and legs both feel weak but arm seem worse than the legs. Patient lives alone and is having difficulty caring for herself at home. Pt denies LOC, headache, fevers, chills, diaphoresis, visual changes, neck pain, chest pain, breathing difficulties, nausea, vomiting, abdominal pain, back pain, melena, hematochezia, urinary symptoms, numbness, lymphadenopathy, rash, or other complaints. ROS: See above HPI for pertinent positives & negatives. A total of 10 systems reviewed and were otherwise negative. PAST MEDICAL HISTORY:See Below , DVT PAST SURGICAL HISTORY:See Below, ICD FAMILY HISTORY:See Below SOCIAL HISTORY:See Below, retired HOME MEDICATIONS:See Below ALLERGIES:See Below VITALS:See Below PHYSICAL EXAMINATION: GENERAL: Awake, alert, tired-appearing, in no distress HENT: Normocephalic, atraumatic. Oropharynx unremarkable. EYES: Normal conjunctiva. Sclera non-icteric. PERRL. NECK: Inspection normal. Non-tender. Supple. No nuchal rigidity. FROM. No masses. RESPIRATORY: Clear to auscultation. No wheezes. No rales. Normal respiratory effort. CARDIAC: Normal rate. Normal rhythm. No murmurs. No rubs. Extremities warm and well perfused. Pulses equal. No JVD. GI: Soft, non-distended. No tenderness to palpation. No rebound or guarding. No masses. RECTAL: Deferred. MUSCULOSKELETAL: Atraumatic. Chest examination reveals no tenderness. The back is symmetrical on inspection without obvious abnormality. There is no CVA tenderness to palpation. No joint edema. LOWER EXTREMITIES: Calves are equal size bilaterally and non-tender. Trace edema. No discoloration. NEURO: Normal sensorium. Generally weak but no focal no sensory or motor deficits noted. Symmetric reflexes and 1-2+ in the upper extremities. 1+ lower. Speech normal. SKIN: No rash or jaundice noted. Demetrio Rey MD Past Med/Surg History Medical History (Updated 07/12/21 @ 13:37 by Demetrio Rey MD) Anxiety Arthralgia of multiple sites Chronic sinusitis Controlled type 2 diabetes mellitus with microalbuminuria Esophageal reflux Hypercholesterolemia Hypertension Left ventricular thrombus Low back pain Microalbuminuria Onychomycosis of toenail Panic disorder without agoraphobia Surgical History History of colonoscopy History of hysterectomy S/P cardiac pacemaker procedure Family History Mother Diabetes Brother Diabetes Hypertension Pure hypercholesterolemia Other Family history non-contributory Denies family history of Ovarian cancer Prostate cancer Myocardial infarction Breast cancer Colorectal cancer Social History Smoking Status: Never smoker Second Hand Exposure: No; Hx Alcohol Use: No Hx Substance Use: No Preferred Language: Slovenian Communication Ability: Effective Visual Impairment: No Limitations Hearing Ability: Use of Hearing Aid Fibrous Wallboard Inspector Required: No Beliefs That Will Affect Care: None marital status: / Current Living Situation: Family Current Living Situation Comment: lives with daughter current occupational status: retired Feels Safe at Home: Yes Childhood Exposure to Second-Hand Smoke: No caffeine: Yes (tea) during the past year weight has: remained stable Dental Care, Regularly: No Physical Activity Frequency: Daily Seatbelt Use: always Sunscreen Use: No Assistive Devices: Walker Allergies Allergies Allergy/AdvReac Type Severity Reaction Status Date / Time Dust Mite Allergy Unknown Unknown Uncoded 07/12/21 14:49 Sulfa Drugs Allergy Unknown Unknown Uncoded 07/12/21 14:49 Home Meds Previous Rx's Medication Instructions Recorded Rollator Walker #1 ea 09/19/19 blood-glucose meter (OneTouch #1 ea 09/19/19 Verio Flex Start) acetaminophen 325 mg tablet (Mapap 650 mg PO Q4H PRN #30 tab 11/14/19 (acetaminophen)) lancets 33 gauge (OneTouch Delica #200 ea 06/20/20 Lancets) blood sugar diagnostic (OneTouch #200 ea 11/08/20 Verio test strips) metoprolol succinate 200 mg 200 mg PO QAM #90 tab 01/18/21 tablet,extended release 24 hr sacubitril 97 mg-valsartan 103 mg 1 tab PO BID #180 tab 01/18/21 tablet (Entresto) atorvastatin 20 mg tablet 20 mg PO DAILY #90 tab 03/26/21 furosemide 80 mg tablet 40 mg PO Q OTHER DAY #45 tab 06/25/21 metformin 500 mg tablet 500 mg PO BID #180 tab 06/25/21 potassium chloride 10 mEq 10 meq PO .COMPLEX #90 tab 06/27/21 tablet,extended release Results & Data (ED) Vital Signs Vital Signs - 24 hr 07/12/21 11:49 07/12/21 12:10 07/12/21 12:20 Temperature 37.2 C Temperature Source Oral Pulse Rate 72 81 75 Pulse Rate from SpO2 Sensor 78 77 Pulse Rhythm Regular Pulse Strength Normal Respiratory Rate 18 22 25 H Respiratory Effort / Characteristics Non-Labored Spontaneous Respiratory Depth Normal Respiratory Pattern Regular Blood Pressure 146/78 H Blood Pressure Mean 100 Blood Pressure Position Lying Pulse Oximetry 94 95 92 Oxygen Delivery Method Room Air Room Air Oxygen Flow Rate 0 Sepsis Recent Fever Within 48 Hours No Sepsis New/Unexplained Change in Mental Status No Sepsis Action Taken by Nursing No Action Required 07/12/21 12:30 07/12/21 12:40 07/12/21 12:50 Temperature Temperature Source Pulse Rate 77 69 73 Pulse Rate from SpO2 Sensor 75 73 Pulse Rhythm Pulse Strength Respiratory Rate 25 H 18 23 Respiratory Effort / Characteristics Respiratory Depth Respiratory Pattern Blood Pressure Blood Pressure Mean Blood Pressure Position Pulse Oximetry 93 91 Oxygen Delivery Method Oxygen Flow Rate Sepsis Recent Fever Within 48 Hours Sepsis New/Unexplained Change in Mental Status Sepsis Action Taken by Nursing 07/12/21 13:00 07/12/21 13:10 07/12/21 13:20 Temperature Temperature Source Pulse Rate 73 71 60 Pulse Rate from SpO2 Sensor 73 69 76 Pulse Rhythm Pulse Strength Respiratory Rate 22 21 25 H Respiratory Effort / Characteristics Respiratory Depth Respiratory Pattern Blood Pressure Blood Pressure Mean Blood Pressure Position Pulse Oximetry 91 93 94 Oxygen Delivery Method Oxygen Flow Rate Sepsis Recent Fever Within 48 Hours Sepsis New/Unexplained Change in Mental Status Sepsis Action Taken by Nursing 07/12/21 13:30 07/12/21 13:40 07/12/21 13:50 Temperature Temperature Source Pulse Rate 72 71 71 Pulse Rate from SpO2 Sensor 72 67 73 Pulse Rhythm Pulse Strength Respiratory Rate 23 21 23 Respiratory Effort / Characteristics Respiratory Depth Respiratory Pattern Blood Pressure Blood Pressure Mean Blood Pressure Position Pulse Oximetry 93 93 93 Oxygen Delivery Method Oxygen Flow Rate Sepsis Recent Fever Within 48 Hours Sepsis New/Unexplained Change in Mental Status Sepsis Action Taken by Nursing 07/12/21 14:00 07/12/21 14:10 07/12/21 15:00 Temperature Temperature Source Pulse Rate 66 71 68 Pulse Rate from SpO2 Sensor 71 70 75 Pulse Rhythm Pulse Strength Respiratory Rate 21 21 21 Respiratory Effort / Characteristics Respiratory Depth Respiratory Pattern Blood Pressure 146/78 H 119/61 Blood Pressure Mean 100 80 Blood Pressure Position Pulse Oximetry 94 94 95 Oxygen Delivery Method Oxygen Flow Rate Sepsis Recent Fever Within 48 Hours Sepsis New/Unexplained Change in Mental Status Sepsis Action Taken by Nursing 07/12/21 15:50 07/12/21 16:30 Temperature Temperature Source Pulse Rate 62 Pulse Rate from SpO2 Sensor 77 90 Pulse Rhythm Pulse Strength Respiratory Rate 22 21 Respiratory Effort / Characteristics Respiratory Depth Respiratory Pattern Blood Pressure 115/33 L Blood Pressure Mean 60 Blood Pressure Position Pulse Oximetry 94 92 Oxygen Delivery Method Oxygen Flow Rate Sepsis Recent Fever Within 48 Hours Sepsis New/Unexplained Change in Mental Status Sepsis Action Taken by Nursing Laboratory Data Result diagrams: 07/12/21 11:55 07/12/21 11:55 Lab Results 07/12/21 07/12/21 07/12/21 Range/Units 11:55 11:55 12:40 WBC 4.90 (4.8-10.8) K/uL RBC 3.86 L (4.2-5.4) M/uL Hgb 12.3 (12.0-16.0) g/dL Hct 37.6 (37-47) % MCV 97.4 (80-100) fL MCH 31.9 (25-34) pg MCHC 32.7 (32-36) g/dL RDW Std Deviation 45.7 (36.4-46.3) fL RDW Coeff of Shaka 12.8 (11.5-14.5) % Plt Count 140 (130-400) K/uL MPV 11.6 H (7.4-10.4) fL Immature Gran % (Auto) 0.2 % Neut % (Auto) 66.4 % Lymph % (Auto) 22.4 % [place] % (Auto) 10.0 % Eos % (Auto) 0.8 % Baso % (Auto) 0.2 % Neut # (Auto) 3.25 (1.4-6.5) K/uL Lymph # (Auto) 1.10 L (1.2-3.4) K/uL [place] # (Auto) 0.49 (0.11-0.59) K/uL Eos # (Auto) 0.04 (0-0.5) K/uL Baso # (Auto) 0.01 (0-0.2) K/uL Immature Gran # (Auto) 0.01 (0.00-0.02) K/uL Sodium 140 (136-145) mmol/L Potassium 3.4 L (3.5-5.1) mmol/L Chloride 107 (98-107) mmol/L Carbon Dioxide 26 (21-32) mmol/L Anion Gap 7.0 (3-11) BUN 25 H (7-18) mg/dl Creatinine 0.98 (0.6-1.2) mg/dl Est Cr Clr Drug Dosing 44.1 ml/min Est GFR ( Amer) 61.8 ml/min Est GFR (Non-Af Amer) 53.3 ml/min BUN/Creatinine Ratio 26.0 H (10-20) Glucose 142 H (70-99) mg/dl Calcium 9.4 (8.5-10.1) mg/dl Magnesium 1.8 (1.8-2.4) mg/dl Total Bilirubin 0.6 (0.2-1) mg/dl AST 76 H (15-37) U/L ALT 35 (12-78) Alkaline Phosphatase 54 (45-117) U/L Total Creatine Kinase 1495 H (26-192) U/L Troponin I < 0.015 (0-0.045) ng/ml Total Protein 7.4 (6.4-8.2) gm/dl Albumin 3.3 L (3.4-5.0) gm/dl Globulin 4.1 H (2.5-4.0) gm/dl Albumin/Globulin Ratio 0.8 L (0.9-2) TSH 2.490 (0.300-4.500) uIu/ml SARS-CoV-2, RNA, NAAT NEGATIVE (NEGATIVE) Administered Medications Discontinued Medications Sodium Chloride (Nss) 500 mls @ 999 mls/hr IV .Q31M ANUM Stop: 07/12/21 12:45 Last Infusion: 07/12/21 13:21 Dose: 0 mls/hr Documented by: [id number] Admin: 07/12/21 12:42 Dose: 999 mls/hr Documented by: [id number] Sodium Chloride (Nss 1000ml) 1,000 mls @ 125 mls/hr IV .Q8H ANUM Stop: 07/12/21 20:14 Last Admin: 07/12/21 13:21 Dose: 125 mls/hr Documented by: [id number] Potassium Chloride (Potassium Chloride Crtab 20 Meq Tabcr) 40 meq PO NOW STA Stop: 07/12/21 16:41 Last Admin: 07/12/21 17:05 Dose: 40 meq Documented by: [id number] Imaging Data Radiologist's Impression: Chest X-Ray 07/12/21 12:13 XR chest 1V portable CLINICAL HISTORY: weakness COMPARISON STUDY: Chest radiograph November 10, 2019. FINDINGS: Left subclavian pacer/AICD is in place. Cardiomegaly is unchanged. A hiatal hernia is again noted. There is no evidence for pulmonary edema. Bibasilar opacities are similar to prior exam and favor atelectasis. No pneumothorax or pleural effusion is present. IMPRESSION: 1. No acute cardiopulmonary findings. No change in appearance of the chest. 2. Bibasilar opacities which favor atelectasis. 3. Cardiomegaly without evidence for pulmonary edema. ACT 112: Negative or not required by law. Electronically signed by: Ken Sahu M.D. 07/12/2021 12:39 PM Discharge Plan Visit Data Chief Complaint: Weakness Stated Complaint: Fall ED Provider: Demetrio Rey Discharge Problem: Generalized weakness, Rhabdomyolysis Patient Disposition: Admitted As Inpatient Discharge Instructions Interventions: ED Discharge Assessment Last Done: 07/12/21 18:50
[2021-07-12] MEDS ORDERED: POTASSIUM CHLORIDE CRTAB 20 MEQ TABCR PO STA (16:40)
--- NOTE | 2021-07-12 16:40 | History & Physical Report ---
Date of Service July 12, 2021 Assessment & Plan (1) Rhabdomyolysis: Plan: Patient with elevated CK of 1495. ?inflammatory vs infectious. Doubt secondary to influenza vaccination. Doubtful is secondary to recent syncopal event as patient reports being down only 5 minutes. -Admit to medical -NSS at 125mL/hr x 2 liters -Repeat CK in AM (2) Syncope: Plan: Patient reports several syncopal events starting after her influenza vaccination. She denies prodromal symptoms. She has an AICD in place, denies discharge. ?Syncope vs arrhythmia, doubt seizures -Check orthostatic VS -Pacer interrogation -Telemetry monitoring (3) Hypercholesterolemia: Plan: Chronic -Hold Atorvastatin (4) Hypertension: Plan: Chronic. Well controlled -Continue metoprolol -Continue Entresto -Monitor BP (5) Controlled type 2 diabetes mellitus with microalbuminuria: Plan: Chronic -ISS -Continue to monitor Plan: F/E/N - NSS at 125mL/hr x 2 liters, K repletion with 40mEq x 1, repeat chemistry in AM, CC/AHA diet as tolerated Ppx - Lovenox 40 Code - Full per discussion with patient Dispo - Admission to medical with telemetry History of Present Illness Chief Complaint: syncope Primary Care Provider: Conner Benavides MD Tanya Del Angel is a pleasant 85yo female presenting with syncope. Patient received the flu shot 2 weeks ago. She states that immediately following the flu shot she had a syncopal episode. She had another syncopal event later in the day. Patient reports that yesterday afternoon she felt a little "funny" and had another syncopal event. She reports being on the floor only a few moments and was able to get up without difficulty. She denies chest pain, palpitations, cough, SOB, nausea, vomiting, diarrhea or constipation She denies confusion, lightheadedness, dizziness. No AICD discharges She does report muscle pain and soreness - mostly in legs Patient is vaccinated against Covid-19 x 2 She recently lost her oldest son and brother to Covid-19 - is tomorrow. ER Code: NSS Allergies Allergy/AdvReac Type Severity Reaction Status Date / Time Dust Mite Allergy Unknown Unknown Uncoded 07/12/21 14:49 Sulfa Drugs Allergy Unknown Unknown Uncoded 07/12/21 14:49 Home Medications Medication Instructions Recorded Confirmed Type Rollator Walker #1 ea 09/19/19 06/12/21 Rx blood-glucose meter (OneTouch #1 ea 09/19/19 06/12/21 Rx Verio Flex Start) acetaminophen 325 mg tablet (Mapap 650 mg PO Q4H PRN #30 tab 11/14/19 07/12/21 Rx (acetaminophen)) lancets 33 gauge (OneTouch Delica #200 ea 06/20/20 06/12/21 Rx Lancets) blood sugar diagnostic (OneTouch #200 ea 11/08/20 06/12/21 Rx Verio test strips) metoprolol succinate 200 mg 200 mg PO QAM #90 tab 01/18/21 07/12/21 Rx tablet,extended release 24 hr sacubitril 97 mg-valsartan 103 mg 1 tab PO BID #180 tab 01/18/21 07/12/21 Rx tablet (Entresto) atorvastatin 20 mg tablet 20 mg PO DAILY #90 tab 03/26/21 07/12/21 Rx furosemide 80 mg tablet 40 mg PO Q OTHER DAY #45 tab 06/25/21 07/12/21 Rx metformin 500 mg tablet 500 mg PO BID #180 tab 06/25/21 07/12/21 Rx potassium chloride 10 mEq 10 meq PO .COMPLEX #90 tab 06/27/21 07/12/21 Rx tablet,extended release Past Med/Surg History Medical History (Updated 07/12/21 @ 19:58 by Miriam Rosario DO) Anxiety Arthralgia of multiple sites Chronic sinusitis Controlled type 2 diabetes mellitus with microalbuminuria Esophageal reflux Hypercholesterolemia Hypertension Left ventricular thrombus Low back pain Microalbuminuria Onychomycosis of toenail Panic disorder without agoraphobia Surgical History History of colonoscopy History of hysterectomy S/P cardiac pacemaker procedure Family History Mother Diabetes Brother Diabetes Hypertension Pure hypercholesterolemia Other Family history non-contributory Denies family history of Ovarian cancer Prostate cancer Myocardial infarction Breast cancer Colorectal cancer Social History Smoking Status: Never smoker Second Hand Exposure: No; Hx Alcohol Use: No Hx Substance Use: No Preferred Language: [place] Communication Ability: Effective Visual Impairment: No Limitations Hearing Ability: Use of Hearing Aid Supervisor Varnish Required: No Beliefs That Will Affect Care: None marital status: / Current Living Situation: Family Current Living Situation Comment: lives with daughter current occupational status: retired Feels Safe at Home: Yes Childhood Exposure to Second-Hand Smoke: No caffeine: Yes (tea) during the past year weight has: remained stable Dental Care, Regularly: No Physical Activity Frequency: Daily Seatbelt Use: always Sunscreen Use: No Assistive Devices: Walker Review of Systems Review of Systems: All systems reviewed & are unremarkable except as noted in HPI & below Physical Exam Physical Exam: General: patient resting comfortably, NAD, non-toxic in appearance, AA&O x 4 Skin: warm, dry, intact, no rashes or lesions HEENT: NC/AT, PERRL, EOMI, anicteric sclera, conjunctiva without injection, external ear normal to inspection and nontender, nares patent, moist mucus membranes, dentition intact, no oropharyngeal lesions, neck supple, trachea midline, no LAD, no thyromegaly, no JVD Heart: +S1/S2, regular, no m/r/g Lungs: equal air entry bilaterally, no rales/rhonchi/wheezes Abd: +BS, soft, NT/ND, no masses/organomegaly/ascites Ext: warm, 2+ pulses in UE/LE bilaterally, no clubbing/cyanosis or edema, +muscle pain, +significant weakness - patient unable to reposition herself in bed Neuro: nonfocal, patient AA&O x 4, speech intact, no facial droop, moving all extremities on command with equal strength 5/5 Results & Data Results & Data ([facility]) Vital Signs (Past 12 Hours) Vital Signs Temp Pulse Resp BP Pulse Ox 07/12/21 16:30 21 115/33 L 92 07/12/21 15:50 62 22 94 07/12/21 15:00 68 21 119/61 95 07/12/21 14:10 71 21 94 07/12/21 14:00 66 21 146/78 H 94 07/12/21 13:50 71 23 93 07/12/21 13:40 71 21 93 07/12/21 13:30 72 23 93 07/12/21 13:20 60 25 H 94 07/12/21 13:10 71 21 93 07/12/21 13:00 73 22 91 07/12/21 12:50 73 23 91 07/12/21 12:40 69 18 93 07/12/21 12:30 77 25 H 07/12/21 12:20 75 25 H 92 07/12/21 12:10 81 22 95 07/12/21 11:49 37.2 C 72 18 146/78 H 94 Laboratory Results Laboratory Results WBC 4.90 K/uL (4.8-10.8) 07/12/21 11:55 RBC 3.86 M/uL (4.2-5.4) L 07/12/21 11:55 Hgb 12.3 g/dL (12.0-16.0) 07/12/21 11:55 Hct 37.6 % (37-47) 07/12/21 11:55 MCV 97.4 fL (80-100) 07/12/21 11:55 MCH 31.9 pg (25-34) 07/12/21 11:55 MCHC 32.7 g/dL (32-36) 07/12/21 11:55 RDW Std Deviation 45.7 fL (36.4-46.3) 07/12/21 11:55 RDW Coeff of Shaka 12.8 % (11.5-14.5) 07/12/21 11:55 Plt Count 140 K/uL (130-400) 07/12/21 11:55 MPV 11.6 fL (7.4-10.4) H 07/12/21 11:55 Immature Gran % (Auto) 0.2 % 07/12/21 11:55 Neut % (Auto) 66.4 % 07/12/21 11:55 Lymph % (Auto) 22.4 % 07/12/21 11:55 [place] % (Auto) 10.0 % 07/12/21 11:55 Eos % (Auto) 0.8 % 07/12/21 11:55 Baso % (Auto) 0.2 % 07/12/21 11:55 Neut # (Auto) 3.25 K/uL (1.4-6.5) 07/12/21 11:55 Lymph # (Auto) 1.10 K/uL (1.2-3.4) L 07/12/21 11:55 [place] # (Auto) 0.49 K/uL (0.11-0.59) 07/12/21 11:55 Eos # (Auto) 0.04 K/uL (0-0.5) 07/12/21 11:55 Baso # (Auto) 0.01 K/uL (0-0.2) 07/12/21 11:55 Immature Gran # (Auto) 0.01 K/uL (0.00-0.02) 07/12/21 11:55 Sodium 140 mmol/L (136-145) 07/12/21 11:55 Potassium 3.4 mmol/L (3.5-5.1) L 07/12/21 11:55 Chloride 107 mmol/L (98-107) 07/12/21 11:55 Carbon Dioxide 26 mmol/L (21-32) 07/12/21 11:55 Anion Gap 7.0 (3-11) 07/12/21 11:55 BUN 25 mg/dl (7-18) H 07/12/21 11:55 Creatinine 0.98 mg/dl (0.6-1.2) 07/12/21 11:55 Est Cr Clr Drug Dosing 44.1 ml/min 07/12/21 11:55 Est GFR ( Amer) 61.8 ml/min 07/12/21 11:55 Est GFR (Non-Af Amer) 53.3 ml/min 07/12/21 11:55 BUN/Creatinine Ratio 26.0 (10-20) H 07/12/21 11:55 Glucose 142 mg/dl (70-99) H 07/12/21 11:55 Calcium 9.4 mg/dl (8.5-10.1) 07/12/21 11:55 Magnesium 1.8 mg/dl (1.8-2.4) 07/12/21 11:55 Total Bilirubin 0.6 mg/dl (0.2-1) 07/12/21 11:55 AST 76 U/L (15-37) H 07/12/21 11:55 ALT 35 (12-78) 07/12/21 11:55 Alkaline Phosphatase 54 U/L (45-117) 07/12/21 11:55 Total Creatine Kinase 1495 U/L (26-192) H 07/12/21 11:55 Troponin I < 0.015 ng/ml (0-0.045) 07/12/21 11:55 Total Protein 7.4 gm/dl (6.4-8.2) 07/12/21 11:55 Albumin 3.3 gm/dl (3.4-5.0) L 07/12/21 11:55 Globulin 4.1 gm/dl (2.5-4.0) H 07/12/21 11:55 Albumin/Globulin Ratio 0.8 (0.9-2) L 07/12/21 11:55 TSH 2.490 uIu/ml (0.300-4.500) 07/12/21 11:55 SARS-CoV-2, RNA, NAAT NEGATIVE (NEGATIVE) 07/12/21 12:40 Impressions Chest X-Ray 07/12/21 12:13 XR chest 1V portable CLINICAL HISTORY: weakness COMPARISON STUDY: Chest radiograph November 10, 2019. FINDINGS: Left subclavian pacer/AICD is in place. Cardiomegaly is unchanged. A hiatal hernia is again noted. There is no evidence for pulmonary edema. Bibasilar opacities are similar to prior exam and favor atelectasis. No pneumothorax or pleural effusion is present. IMPRESSION: 1. No acute cardiopulmonary findings. No change in appearance of the chest. 2. Bibasilar opacities which favor atelectasis. 3. Cardiomegaly without evidence for pulmonary edema. ACT 112: Negative or not required by law. Electronically signed by: Ken Sahu M.D. 07/12/2021 12:39 PM ECG Additional Comments: EKG Atrial sensed, ventricular paced rhythm at 79, no acute ischemic changes Code Status & VTE Plan VTE Prophylaxis Plan VTE Prophylaxis will be ordered: Yes PG Care Time/CCT Total # of Minutes Spent Total Time Spent with Patient: Total time spent is greater than 50% in coordination of care (as documented) at patient's floor/unit and/or counseling patient: Coding Level of Care Code 20327 Initial Inpt Care Lvl 3 Diagnoses Rhabdomyolysis M62.82 Hypercholesterolemia E78.00 Hypertension I10 Controlled type 2 diabetes mellitus with microalbuminuria E11.29; R80.9 Syncope R55
[2021-07-12] MEDS ORDERED: GLUCOSE 40% GEL 15 GM TUBE PO PRN (19:38)
[2021-07-12] MEDS ORDERED: ONDANSETRON INJ 2 MG/ML 2 ML VIAL IV PRN (19:38)
[2021-07-12] MEDS ORDERED: GLUCAGON FOR INJ 1 MG VIAL SQ PRN (19:38)
[2021-07-12] MEDS ORDERED: GLUCOSE 10 TABS/TUBE PO PRN (19:38)
[2021-07-12] MEDS ORDERED: DEXTROSE 50% 50 ML SYRINGE IV PRN (19:38)
[2021-07-12] MEDS ORDERED: CARBOHYDRATES FOR HYPOGLYCEMIA PO PRN (19:38)
[2021-07-12] MEDS: INSULIN ASPART PER UNIT SC SCH (20:27)
[2021-07-12] MEDS: SODIUM CHLORIDE 0.9% 1000ML 1,000 ML IV SCH (20:27)
[2021-07-12] MEDS: VALSARTAN/SACUBITRIL 103/97MG TAB PO SCH (20:28)
[2021-07-12] MEDS: ACETAMINOPHEN 325 MG TAB PO PRN (23:12)
[2021-07-13] MEDS ORDERED: traMADol HCL 50 MG TABLET PO STA (00:25)
[2021-07-13] MEDS: SODIUM CHLORIDE 0.9% 1000ML 1,000 ML IV SCH (03:54)
[2021-07-13 04:10] LABS: Basophils # (auto) 0.01 K/uL (0-0.2); Basophils % (auto) 0.3 %; Eosinophils # (auto) 0.11 K/uL (0-0.5); Hematocrit (blood only) 33.8 % (37-47); Hemoglobin 10.9 g/dL (12.0-16.0); Lymphocytes # (auto) 1.24 K/uL (1.2-3.4); Lymphocytes % (auto) 33.3 %; Mean Corpuscular Hemoglobin 31.7 pg (25-34); Mean Corpuscular Hgb Conc 32.2 g/dL (32-36); Mean Corpuscular Volume 98.3 fL (80-100); Mean Platelet Volume 10.8 fL (7.4-10.4); Monocytes # (auto) 0.25 K/uL (0.11-0.59); Monocytes % (auto) 6.7 %; Neutrophils # (auto) 2.11 K/uL (1.4-6.5); Neutrophils % (auto) 56.7 %; Platelet Count 112 K/uL (130-400); RDW Coefficient of Variation 12.7 % (11.5-14.5); RDW Standard Deviation 45.7 fL (36.4-46.3); Red Blood Count 3.44 M/uL (4.2-5.4); White Blood Count 3.72 K/uL (4.8-10.8)
[2021-07-13 04:28] LABS: Albumin Level 2.6 gm/dl (3.4-5.0); BUN Creatinine Ratio 28.9 (10-20); Calcium 8.3 mg/dl (8.5-10.1); Creatinine Clr Calc Pharmacy 62.6 ml/min; Est GFR (African American) 93.3 ml/min; Est GFR (Non-African American) 80.5 ml/min; Magnesium 1.7 mg/dl (1.8-2.4); Potassium 3.8 mmol/L (3.5-5.1)
[2021-07-13 04:33] LABS: RBC Morphology Unremarkable
[2021-07-13 04:34] LABS: Bilirubin Direct 0.1 mg/dl (0-0.2); Bilirubin,Total 0.4 mg/dl (0.2-1); Total Protein 6.1 gm/dl (6.4-8.2)
[2021-07-13] MEDS: MAGNESIUM SULFATE / D5W 1 GM/100 ML BAG IV SCH ×2 (06:56→08:58)
[2021-07-13] MEDS: ACETAMINOPHEN 325 MG TAB PO PRN ×3 (07:36→22:51)
[2021-07-13 07:56] LABS: Appearance Urine Cloudy (Clear); Bacteria Urine Automated 4+ (Negative); Bilirubin Urine Negative (Negative); Blood Urine 2+ (Negative); Color Urine Yellow; Glucose Urine UA Negative (Negative); Ketones Urine 1+ (Negative); Leukocyte Esterase Urine 2+ (Negative); Nitrite Urine Positive (Negative); Protein Urine 1+ (Negative); Specific Gravity Urine 1.017 (1.000-1.030); Urobilinogen Urine Negative (Negative); WBC Urine Automated >30 /hpf (0-5)
[2021-07-13] MEDS: INSULIN ASPART PER UNIT SC SCH ×4 (08:07→21:34)
[2021-07-13] MEDS: VALSARTAN/SACUBITRIL 103/97MG TAB PO SCH (08:08)
[2021-07-13] MEDS: ENOXAPARIN INJ 40 MG/0.4 ML SYR SQ SCH (08:08)
[2021-07-13] MEDS ORDERED: FUROSEMIDE 40 MG TAB PO SCH (09:00)
[2021-07-13] MEDS ORDERED: POTASSIUM CHLORIDE 10 MEQ TABCR PO SCH (09:00)
[2021-07-13] MEDS ORDERED: METOPROLOL SUCC 50MG EXT REL TAB PO SCH (09:00)
--- NOTE | 2021-07-13 09:31 | XRay Report ---
XR chest 1V portable CLINICAL HISTORY: hypoxic, febrile; eval for pneumonia TECHNIQUE: Single frontal radiograph of the chest was obtained. Comparison: Comparison is made to chest one view 07/12/2021 FINDINGS: Lines and tubes are stable. The cardiomediastinal silhouette is normal. There is a left retrocardiac opacity. No evidence of pleural effusion or pneumothorax. IMPRESSION: Left retrocardiac opacity is unchanged and may represent atelectasis, pneumonia, and/or aspiration. ACT 112: Negative or not required by law. Electronically signed by: Gaston Serrano M.D. 07/13/2021 9:30 AM
[2021-07-13] MEDS: cefTRIAXone SODIUM 2,000 MG in DEXTROSE 5% 50 ML IV SCH (09:56)
--- NOTE | 2021-07-13 10:14 | XCELERA ---
[id number]
--- NOTE | 2021-07-13 10:27 | Electrocardiogram Report ---
Test Reason : Blood Pressure : / mmHG Vent. Rate : 079 BPM Atrial Rate : 079 BPM P-R Int : 140 ms QRS Dur : 134 ms QT Int : 432 ms P-R-T Axes : 009 038 000 degrees QTc Int : 495 ms Atrial-sensed ventricular-paced rhythm Biventricular pacemaker detected Abnormal ECG When compared with ECG of 08-NOV-2019 07:29, Vent. rate has decreased BY 22 BPM Confirmed by Vick Almazan ([id number]) on 07/13/2021 10:27:17 AM Referred By: REFERRED SELF Confirmed By:Vick Almazan
[2021-07-13 10:34] LABS: Adenovirus PCR Not Detected (NotDetected); Bordetella parapertussis PCR Not Detected (NotDetected); Bordetella pertussis PCR Not Detected (NotDetected); Chlamydia pneumoniae PCR Not Detected (NotDetected); Coronavirus 229E PCR Not Detected (NotDetected); Coronavirus CoV-2 (COVID19)PCR Not Detected (NotDetected); Coronavirus HKU1 PCR Not Detected (NotDetected); Coronavirus NL63 PCR Not Detected (NotDetected); Coronavirus OC43PCR Not Detected (NotDetected); Human Metapneumovirus PCR Not Detected (NotDetected); Influenza A PCR Not Detected (NotDetected); Influenza B PCR Not Detected (NotDetected); Mycoplasma pneumoniae PCR Not Detected (NotDetected); Parainfluenza Virus 1 PCR Not Detected (NotDetected); Parainfluenza Virus 2 PCR Not Detected (NotDetected); Parainfluenza Virus 3 PCR Not Detected (NotDetected); Parainfluenza Virus 4 PCR Not Detected (NotDetected); Respiratory Syncytial VirusPCR Not Detected (NotDetected); Rhinovirus/Enterovirus PCR Not Detected (NotDetected)
[2021-07-13] MEDS ORDERED: SODIUM CHLORIDE 0.9% 1000ML 1,000 ML IV SCH (18:15)
--- NOTE | 2021-07-13 19:22 | Hospitalist Progress Note ---
Date of Service July 13, 2021 Assessment & Plan (1) Sepsis: Plan: Patient is febrile with low wbc count today. She has numerous infectious symptoms as delineated in my HPI. Her constellation of symptoms is concerning for a flu-like illness. COVID testing on 07/10 was negative, and it was negative on 07/12 as well. Elected to obtain [employer] respiratory panel testing - entirely negative. She does have 2 sources of infection - apparent LLL pneumonia on cxr, and ua highly suspicious for UTI. The pneumonia would account for her o2 requirement. It is concerning that her wbc count and platelets are low, ast is mildly elevated, and cpk is mildly elevated. These are typical for viral infection such as COVID or influenza but again that testing is negative. Since her symptoms are so dramatic and given all of the above I am going to keep her in isolation to see how the next 1-2 days play out, Plan to obtain crp and procal in am, blood cultures x 2, and follow her urine culture. If she fails to improve with IV antibiotics this would be concerning for non-b acterial sources of infection. Supportive care. Additional IV fluids given her dehydration & anorexia. (2) Pneumonia: Plan: left-sided pneumonia as seen on cxr today. biofire panel negative. see #1 above. could send legionella to be complete. check blood cx's. start rocephin 2gm daily and doxy 100mg BID. (3) UTI (urinary tract infection): Plan: ua suspicious for such. follow culture. consider CT abd/pelvis to rule out obstructing stone, etc if fevers continue. (4) Rhabdomyolysis: Plan: Patient with elevated CK of 1495. Repeat this am improved. Suspect it is 2nd to her infectious process rather than her syncopal episode. Repeat CPK am. (5) Syncope: Plan: Patient reports several syncopal events following her influenza vaccination in late May. Then had brief episode yesterday which did have prodromal sx's. She has an AICD in place, denies discharge at any time. Interrogation of device requested. Overnight did have a 1-minute episode of tachycardia to about 150 - device did not fire. Rhythm is wide complex. Will review with cardiology. Suspect yesterday's syncope was due to dehydration & her concurrent illness rather than dysrhythmia but [id number] await interrogation. (6) Hypercholesterolemia: Plan: Chronic Hold Atorvastatin due to rise in CPK (7) Hypertension: Plan: Continue metoprolol - may need to reduce the dose due to soft BPs in setting of #1 Hold lasix Hold Entresto (8) Controlled type 2 diabetes mellitus with microalbuminuria: Plan: all previous a1c's <7% BSGs here nearly all <150 (9) Leukopenia: Plan: worrisome for either bacterial sepsis or viral process tick-borne disease can cause as well but no chance for exposure per patient repeat cbc w/ diff in am including procal (10) Thrombocytopenia: Plan: 2nd to infectious process as above cbc in am (11) Status post implantation of automatic cardioverter/defibrillator (AICD): Plan: interrogation requested pacing most times on tele (12) Cardiomyopathy: Plan: previous EF in the 40s now improved to 55-60% EF IVC normal size today volume contracted on exam hold lasix and entresto due to low BPs (13) Hypomagnesemia: Plan: replace 2 gms mag sulfate IV repeat level am Plan: DVT proph - lovenox daughter extensively updated by phone this evening Admission and Anticipated Discharge Date Admission Date: July 12, 2021 Subjective saw patient in full PPE before she was moved into a negative pressure room patient reports feeling very ill since Thursday of this week febrile, chills, severe myalgias from head to toe, nausea, very poor appetite, and dizzy upon standing episode of passing out occurred just briefly, and was preceded by feeling lightheaded she had 2 similar spells on the day she had her flu shot (the day before ) denies palpitations she has had very little contact with others tends to stay at home she does have a visiting nurse come to her home 3 days/week that nurse has been well and wears a mask when she comes to her home patient is vaccinated against COVID although has not had her booster yet her brother from COVID at [facility] last week and his is Thursday of this coming week her son from COVID last year no direct COVID exposures to her knowledge denies tick bites/exposures - she says "I don't go outside" Review of Systems Review of Systems: gen - fevers, chills, fatigue, weakness, anorexia HEENT - no loss of taste or smell; no nasal congestion or sore throat CV - no chest pain pulm - mild cough only; no dyspnea; started to require O2 this am GI - no abd pain or diarrhea but feels bloated Physical Exam Physical Exam: gen - looks sick, unwell, and dehydrated psych - a/o x 3 skin - turgor decreased, no rash HEENT - lips and oral mucosa dry neck - no JVD heart - RRR, s1 s2 lungs - basilar rales b/l; no wheeze; no increased work of breathing abd - soft NT BS+; mildly distended ext - no edema, pulses 2+ b/l Results & Data [facility] Vital Signs (Past 12 Hours) Vital Signs Temp Pulse Pulse Resp BP Pulse Ox 07/13/21 18:27 37.8 C H 07/13/21 16:37 38.4 C H 87 16 134/65 94 07/13/21 16:02 78 07/13/21 15:14 72 07/13/21 11:10 36.8 C 65 18 106/57 L 97 07/13/21 07:40 87 L 07/13/21 07:30 37.8 C H 93 H 19 115/71 87 L Laboratory Results Laboratory Results - last 24 hr 07/13/21 07/13/21 07/13/21 07:43 07:44 09:25 POC Glucose 99 Urine Color Yellow Urine Appearance Cloudy A Urine pH 5.0 Ur Specific [place] 1.017 Urine Protein 1+ H Urine Glucose (UA) Negative Urine Ketones 1+ H Urine Blood 2+ H Urine Nitrite Positive A Urine Bilirubin Negative Urine Urobilinogen Negative Ur Leukocyte Esterase 2+ H Urine WBC (Auto) >30 H Urine RBC (Auto) 5-10 H U Hyaline Cast (Auto) 1-5 U Epithel Cells (Auto) 10-20 H Urine Bacteria (Auto) 4+ H Urine Yeast Not Reportable Adenovirus (PCR) Not Detected B. pertussis DNA (PCR) Not Detected B.parapertussis DNA PCR Not Detected C. pneumoniae DNA (PCR) Not Detected Coronavirus OC43 (PCR) Not Detected Coronavirus HKU1 (PCR) Not Detected Coronavirus 229E (PCR) Not Detected SARS-CoV-2 (PCR) Not Detected Coronavirus NL63 (PCR) Not Detected Human Metapneumovir PCR Not Detected Influenza Type A (PCR) Not Detected Influenza Type B (PCR) Not Detected M. pneumoniae (PCR) Not Detected Parainfluenza 1 (PCR) Not Detected Parainfluenza 2 (PCR) Not Detected Parainfluenza 3 (PCR) Not Detected Parainfluenza 4 (PCR) Not Detected RSV (PCR) Not Detected Entero/Rhino (PCR) Not Detected 07/13/21 07/13/21 07/13/21 11:38 16:34 17:20 POC Glucose 126 H 136 H 157 H Urine Color Urine Appearance Urine pH Ur Specific [place] Urine Protein Urine Glucose (UA) Urine Ketones Urine Blood Urine Nitrite Urine Bilirubin Urine Urobilinogen Ur Leukocyte Esterase Urine WBC (Auto) Urine RBC (Auto) U Hyaline Cast (Auto) U Epithel Cells (Auto) Urine Bacteria (Auto) Urine Yeast Adenovirus (PCR) B. pertussis DNA (PCR) B.parapertussis DNA PCR C. pneumoniae DNA (PCR) Coronavirus OC43 (PCR) Coronavirus HKU1 (PCR) Coronavirus 229E (PCR) SARS-CoV-2 (PCR) Coronavirus NL63 (PCR) Human Metapneumovir PCR Influenza Type A (PCR) Influenza Type B (PCR) M. pneumoniae (PCR) Parainfluenza 1 (PCR) Parainfluenza 2 (PCR) Parainfluenza 3 (PCR) Parainfluenza 4 (PCR) RSV (PCR) Entero/Rhino (PCR) 07/13/21 21:24 POC Glucose 116 H Urine Color Urine Appearance Urine pH Ur Specific [place] Urine Protein Urine Glucose (UA) Urine Ketones Urine Blood Urine Nitrite Urine Bilirubin Urine Urobilinogen Ur Leukocyte Esterase Urine WBC (Auto) Urine RBC (Auto) U Hyaline Cast (Auto) U Epithel Cells (Auto) Urine Bacteria (Auto) Urine Yeast Adenovirus (PCR) B. pertussis DNA (PCR) B.parapertussis DNA PCR C. pneumoniae DNA (PCR) Coronavirus OC43 (PCR) Coronavirus HKU1 (PCR) Coronavirus 229E (PCR) SARS-CoV-2 (PCR) Coronavirus NL63 (PCR) Human Metapneumovir PCR Influenza Type A (PCR) Influenza Type B (PCR) M. pneumoniae (PCR) Parainfluenza 1 (PCR) Parainfluenza 2 (PCR) Parainfluenza 3 (PCR) Parainfluenza 4 (PCR) RSV (PCR) Entero/Rhino (PCR) low wbc low platelets cr 0.69 mild elevation AST mild elevation CPK PG Care Time/CCT Total # of Minutes Spent Total Time Spent with Patient: Total time spent is greater than 50% in coordination of care (as documented) at patient's floor/unit and/or counseling patient: Coding Level of Care Code 41362 Subseq Hosp Care Lvl 3 Diagnoses Rhabdomyolysis M62.82 Syncope R55 Hypercholesterolemia E78.00 Hypertension I10 Controlled type 2 diabetes mellitus with microalbuminuria E11.29; R80.9 UTI (urinary tract infection) N39.0 Sepsis A41.9 Pneumonia J18.9 Leukopenia D72.819 Thrombocytopenia D69.6 Status post implantation of automatic cardioverter/defibrillator (AICD) Z95.810 Cardiomyopathy I42.9 Hypomagnesemia E83.42
[2021-07-13] MEDS: DOXYCYCLINE HYCLATE 100 MG in DEXTROSE 5% 100 ML IV SCH (21:29)
[2021-07-14] MEDS: ACETAMINOPHEN 325 MG TAB PO PRN ×2 (04:25→19:33)
[2021-07-14] MEDS: METOPROLOL SUCC 50MG EXT REL TAB PO SCH (08:18)
[2021-07-14] MEDS: ENOXAPARIN INJ 40 MG/0.4 ML SYR SQ SCH (08:18)
[2021-07-14] MEDS: DOXYCYCLINE HYCLATE 100 MG in DEXTROSE 5% 100 ML IV SCH ×2 (08:20→21:38)
[2021-07-14 08:24] LABS: Eosinophils # (auto) 0.05 K/uL (0-0.5); Eosinophils % (auto) 1.3 %; Hematocrit (blood only) 33.9 % (37-47); Hemoglobin 10.8 g/dL (12.0-16.0); Lymphocytes # (auto) 0.99 K/uL (1.2-3.4); Lymphocytes % (auto) 25.2 %; Mean Corpuscular Hgb Conc 31.9 g/dL (32-36); Mean Corpuscular Volume 97.4 fL (80-100); Mean Platelet Volume 11.2 fL (7.4-10.4); Monocytes # (auto) 0.21 K/uL (0.11-0.59); Monocytes % (auto) 5.3 %; Neutrophils # (auto) 2.68 K/uL (1.4-6.5); Neutrophils % (auto) 68.2 %; Platelet Count 105 K/uL (130-400); RDW Coefficient of Variation 12.8 % (11.5-14.5); RDW Standard Deviation 45.5 fL (36.4-46.3); Red Blood Count 3.48 M/uL (4.2-5.4); White Blood Count 3.93 K/uL (4.8-10.8)
[2021-07-14 08:43] LABS: BUN Creatinine Ratio 23.1 (10-20); Creatinine Clr Calc Pharmacy 57.6 ml/min; Est GFR (African American) 88.3 ml/min; Est GFR (Non-African American) 76.2 ml/min; Potassium 3.5 mmol/L (3.5-5.1)
[2021-07-14] MEDS: INSULIN ASPART PER UNIT SC SCH ×4 (08:55→21:27)
--- NOTE | 2021-07-14 10:10 | Hospitalist Progress Note ---
Date of Service July 14, 2021 Assessment & Plan (1) Sepsis: Plan: 2nd to LLL Pneumonia and GNR UTI. COVID testing x 2 negative including [employer] resp panel (RSV, flu, etc). Blood cultures x 2 sent this morning. Low-normal BPs -- holding BP/cardiac meds, continue gentle IV fluids. Cont rocephin to cover pneumonia & UTI. Doxycycline for atypical pneumonia coverage. Many of her labs (procal negative, low platelets, low wbc's, high AST, high CPK, etc), symptoms, etc are very much typical for viruses. Just to be safe - even despite the negative COVID testing - will keep her in isolation as PUI. I have seen several cases of COVID where the individual tested negative 2-3x's before testing positive. If fevers resolve, labs quickly normalize, patient feels better tomorrow, etc - consider removing isolation then. If patient fails to improve consider COVID retesting. (2) Pneumonia: Plan: LLL. CT chest obtained today -- LLL pneumonia only; remainder of L lung and nearly all of R lung are free of pneumonia. No PEs. Likely community-acquired pneumonia. Day #2 rocephin 2gm daily and doxy 100mg BID. Follow blood cx's. See #1 above. (3) UTI (urinary tract infection): Plan: 2nd GNR. Continue rocephin. CT abd/pelvis WITHOUT renal stones, etc. (4) Rhabdomyolysis: Plan: Patient with elevated CK of 1495 at admission. CPK continues to improve. Suspect it is 2nd to her infectious process rather than her syncopal episode. Rhabdo is more common with viral pathogens -- see above re: keeping patient has COVID PUI. (5) Syncope: Plan: Patient reports several syncopal events following her influenza vaccination in late May. Then had brief syncopal episode on day of presentation. She has an AICD in place, denies discharge at any time. Interrogation of device requested. 2 nights ago did have a 1-minute episode of tachycardia to about 150 - device did not fire. Rhythm is wide complex. Will review with cardiology. No additional episodes since then. Suspect her syncope was due to dehydration & her concurrent illness rather than dysrhythmia but [id number] await interrogation. (6) Hypercholesterolemia: Plan: Chronic Hold Atorvastatin due to rise in CPK (7) Hypertension: Plan: Due to low-normal BPs and sepsis -- Hold metoprolol, Hold Entresto, Hold lasix (8) Controlled type 2 diabetes mellitus with microalbuminuria: Plan: all previous a1c's <7% BSGs here nearly all <150 (9) Leukopenia: Plan: worrisome for either bacterial sepsis or viral process tick-borne disease can cause as well but no chance for exposure per patient procal negative today - this would argue more so for viral pathogen but doesn't exclude bacterial pathogens repeat CBC w/ diff in am (10) Thrombocytopenia: Plan: 2nd to infectious process as discussed above cbc in am (11) Status post implantation of automatic cardioverter/defibrillator (AICD): Plan: interrogation requested pacing most times on tele (12) Cardiomyopathy: Plan: previous EF in the 40s now improved to 55-60% EF this admission remains volume contracted on exam cont to hold lasix and entresto due to low BPs (13) Hypomagnesemia: Plan: replaced repeat level am Plan: DVT proph - lovenox daughter extensively updated by phone .25 left voicemail message for daughter on 07.14 Admission and Anticipated Discharge Date Admission Date: July 12, 2021 Subjective patient feels a "little better" this am diffuse myalgias are improving still very tired, weak, and appetite remains poor no cough minimal dyspnea no chest pain/tightness no abdominal pain no loss of taste or smell pt reports that she had a kidney stone "many years ago" tele overnight - pacing, no dysrhythmia Review of Systems Review of Systems: gen -- fevers/chills this am CV - no orthopnea pulm - no cough/congestion GI - no nausea/emesis/diarrhea Physical Exam Physical Exam: gen - continues to look sick, dehydrated psych - a/o x 3 skin - turgor decreased, no rash HEENT - MM still a bit dry neck - no JVD heart - RRR, s1 s2, no murmur lungs - Left basilar rales - about 1/[address] up back; right lung clear; no wheeze; no increased work of breathing abd - soft NT BS+; mildly distended ext - no edema, pulses 2+ b/l neuro - mild tremor Results & Data Results & Data ([facility]) Vital Signs (Past 12 Hours) Vital Signs Temp Pulse Pulse Resp BP Pulse Ox 07/14/21 09:15 82 07/14/21 08:16 37.7 C H 77 14 94/60 L 95 07/13/21 23:00 75 07/13/21 22:52 38.8 C H 74 18 102/41 L 95 Laboratory Results Laboratory Results - last 24 hr 07/13/21 07/13/21 07/13/21 09:25 11:38 16:34 WBC RBC Hgb Hct MCV MCH MCHC RDW Std Deviation RDW Coeff of Shaka Plt Count MPV Immature Gran % (Auto) Neut % (Auto) Lymph % (Auto) [place] % (Auto) Eos % (Auto) Baso % (Auto) Neut # (Auto) Lymph # (Auto) [place] # (Auto) Eos # (Auto) Baso # (Auto) Immature Gran # (Auto) Sodium Potassium Chloride Carbon Dioxide Anion Gap BUN Creatinine Est Cr Clr Drug Dosing Est GFR ( Amer) Est GFR (Non-Af Amer) BUN/Creatinine Ratio Glucose POC Glucose 126 H 136 H Calcium AST ALT Total Creatine Kinase Procalcitonin Adenovirus (PCR) Not Detected B. pertussis DNA (PCR) Not Detected B.parapertussis DNA PCR Not Detected C. pneumoniae DNA (PCR) Not Detected Coronavirus OC43 (PCR) Not Detected Coronavirus HKU1 (PCR) Not Detected Coronavirus 229E (PCR) Not Detected SARS-CoV-2 (PCR) Not Detected Coronavirus NL63 (PCR) Not Detected Human Metapneumovir PCR Not Detected Influenza Type A (PCR) Not Detected Influenza Type B (PCR) Not Detected M. pneumoniae (PCR) Not Detected Parainfluenza 1 (PCR) Not Detected Parainfluenza 2 (PCR) Not Detected Parainfluenza 3 (PCR) Not Detected Parainfluenza 4 (PCR) Not Detected RSV (PCR) Not Detected Entero/Rhino (PCR) Not Detected 07/13/21 07/13/21 07/14/21 17:20 21:24 08:08 WBC 3.93 L RBC 3.48 L Hgb 10.8 L Hct 33.9 L MCV 97.4 MCH 31.0 MCHC 31.9 L RDW Std Deviation 45.5 RDW Coeff of Shaka 12.8 Plt Count 105 L MPV 11.2 H Immature Gran % (Auto) 0.0 Neut % (Auto) 68.2 Lymph % (Auto) 25.2 [place] % (Auto) 5.3 Eos % (Auto) 1.3 Baso % (Auto) 0.0 Neut # (Auto) 2.68 Lymph # (Auto) 0.99 L [place] # (Auto) 0.21 Eos # (Auto) 0.05 Baso # (Auto) 0.00 Immature Gran # (Auto) 0.00 Sodium Potassium Chloride Carbon Dioxide Anion Gap BUN Creatinine Est Cr Clr Drug Dosing Est GFR ( Amer) Est GFR (Non-Af Amer) BUN/Creatinine Ratio Glucose POC Glucose 157 H 116 H Calcium AST ALT Total Creatine Kinase Procalcitonin Adenovirus (PCR) B. pertussis DNA (PCR) B.parapertussis DNA PCR C. pneumoniae DNA (PCR) Coronavirus OC43 (PCR) Coronavirus HKU1 (PCR) Coronavirus 229E (PCR) SARS-CoV-2 (PCR) Coronavirus NL63 (PCR) Human Metapneumovir PCR Influenza Type A (PCR) Influenza Type B (PCR) M. pneumoniae (PCR) Parainfluenza 1 (PCR) Parainfluenza 2 (PCR) Parainfluenza 3 (PCR) Parainfluenza 4 (PCR) RSV (PCR) Entero/Rhino (PCR) 07/14/21 07/14/21 07/14/21 08:08 08:08 08:25 WBC RBC Hgb Hct MCV MCH MCHC RDW Std Deviation RDW Coeff of Shaka Plt Count MPV Immature Gran % (Auto) Neut % (Auto) Lymph % (Auto) [place] % (Auto) Eos % (Auto) Baso % (Auto) Neut # (Auto) Lymph # (Auto) [place] # (Auto) Eos # (Auto) Baso # (Auto) Immature Gran # (Auto) Sodium 141 Potassium 3.5 Chloride 111 H Carbon Dioxide 23 Anion Gap 8.0 BUN 17 Creatinine 0.73 Est Cr Clr Drug Dosing 57.6 Est GFR ( Amer) 88.3 Est GFR (Non-Af Amer) 76.2 BUN/Creatinine Ratio 23.1 H Glucose 111 H POC Glucose 135 H Calcium 8.0 L AST 53 H ALT 33 Total Creatine Kinase 531 H Procalcitonin 0.28 Adenovirus (PCR) B. pertussis DNA (PCR) B.parapertussis DNA PCR C. pneumoniae DNA (PCR) Coronavirus OC43 (PCR) Coronavirus HKU1 (PCR) Coronavirus 229E (PCR) SARS-CoV-2 (PCR) Coronavirus NL63 (PCR) Human Metapneumovir PCR Influenza Type A (PCR) Influenza Type B (PCR) M. pneumoniae (PCR) Parainfluenza 1 (PCR) Parainfluenza 2 (PCR) Parainfluenza 3 (PCR) Parainfluenza 4 (PCR) RSV (PCR) Entero/Rhino (PCR) PG Care Time/CCT Total # of Minutes Spent Total Time Spent with Patient: Total time spent is greater than 50% in coordination of care (as documented) at patient's floor/unit and/or counseling patient: Coding Level of Care Code 27326 Subseq Hosp Care Lvl 3 Diagnoses Sepsis A41.9 Pneumonia J18.9 UTI (urinary tract infection) N39.0 Rhabdomyolysis M62.82 Syncope R55 Hypercholesterolemia E78.00 Hypertension I10 Controlled type 2 diabetes mellitus with microalbuminuria E11.29; R80.9 Leukopenia D72.819 Thrombocytopenia D69.6 Status post implantation of automatic cardioverter/defibrillator (AICD) Z95.810 Cardiomyopathy I42.9 Hypomagnesemia E83.42
[2021-07-14] MEDS: cefTRIAXone SODIUM 2,000 MG in DEXTROSE 5% 50 ML IV SCH (10:28)
[2021-07-14] MEDS ORDERED: OPTIRAY 320 125ml IV ONE (10:58)
--- NOTE | 2021-07-14 11:22 | CT Scan Report ---
CT angio chest PE protocol CLINICAL HISTORY: LLL pneumonia, immobility; eval PE, pneumonia COMPARISON STUDY: Portable chest from 06/13/2021 CT DOSE: TECHNIQUE: CT Angio of the chest was performed.followed by image post processing with coronal, and s agittal MIP reformats. Contrast Volume: Optiray 320, 119 ml FINDINGS: Vasculature: There is homogeneous perfusion of the pulmonary vasculature bilaterally. No intraluminal filling defects or evidence for pulmonary embolus is seen. Airway: The airway is clear. No endobronchial lesion is identified. Lungs: As seen radiographically, there is an alveolar opacity within the retrocardiac region of the l eft lower lobe with air bronchograms present. Findings are characteristic of the presence of lobar pn eumonia. There is minimal right basilar atelectasis. The remainder of the lungs are clear. Pleura: There is no evidence for pleural effusion. There is no evidence for pneumothorax. Mediastinum: There is no evidence for pathologic adenopathy. Heart size is mildly enlarged with perma nent cardiac pacer in place. There is coronary artery calcification. The thoracic aorta is within nor mal limits. There is no evidence for pericardial effusion. Upper abdomen:The adrenal glands are normal bilaterally. The gallbladder is well distended with deanna lithiasis. There is no CT evidence for acute cholecystitis. Osseous structures: There is no acute osseous pathology. Impression: 1. No CTA evidence for pulmonary embolus. 2. CT confirms alveolar opacity in retrocardiac region of the left lower lobe with air bronchograms m ost characteristic of a lobar pneumonia. 3. Right basilar atelectasis. 4. Mild cardiomegaly with coronary artery calcification. 5. Cholelithiasis. ACT 112: Negative or not required by law. Electronically signed by: Forest De Los Santos M.D. 07/14/2021 11:20 AM
--- NOTE | 2021-07-14 11:38 | CT Scan Report ---
CT abd pelvis wo con CLINICAL HISTORY: UTI, sepsis; eval for obstructing stone . Abdominal pain COMPARISON STUDY: No previous studies for comparison. CT DOSE: 1631.31 mGy.cm TECHNIQUE: Standard CT of the Abdomen and Pelvis was performed without IV contrast. The patient did not receive oral contrast. A dose lowering technique was utilized adhering to the principles of FRANSICO Green FINDINGS: Abdominal cavity: There is no evidence for abdominal mass, adenopathy or ascites. Liver: The liver is homogeneous in attenuation on these limited noncontrast images..There are 2 low-a ttenuation lesion seen within the right lobe of the liver which probably represent hepatic cysts. Fol low-up liver ultrasound is recommended. Spleen: The spleen is homogeneous in attenuation on these limited noncontrast images. Pancreas: The pancreas is homogeneous in attenuation on these limited noncontrast images. Gall Bladder: The gallbladder is distended with cholelithiasis. There is no CT evidence for acute cho lecystitis. Adrenal glands: The adrenal glands are normal in size and attenuation on these limited noncontrast im ages. Kidneys: The kidneys are homogeneous in attenuation on these limited noncontrast images. There is nilda dence for chronic perinephric stranding. There is a 2 mm nonobstructing left renal calculus. There is no evidence for right renal calculus or hydronephrosis bilaterally. There are no gross renal masses on these limited noncontrast images.a Bowel: There is a moderate-sized paraesophageal hiatal hernia on the left. The bowel loops are normal ly placed within the abdomen and pelvis without evidence for dilatation or obstruction. There is no e vidence for mass lesion. There are no inflammatory changes present. There is no evidence for free air . The appendix is not visualized. Bladder: There is distention of the urinary bladder with no evidence for focal bladder wall thickenin g, calculus or diverticulum. : There is no evidence for pelvic mass or adenopathy. The patient is status post hysterectomy. Vasculature: There is no evidence for focal aneurysmal dilatation of the abdominal aorta. Atheroscler otic calcification is present. Osseous structures: There is no acute osseous pathology. Degenerative changes are seen within the spi ne. IMPRESSION: 1. Moderate-sized paraesophageal hiatal hernia on the left. 2. Cholelithiasis with no CT evidence for acute cholecystitis. 3. Distention of the urinary bladder with no definite wall thickening or bladder calculi. 4. Additional nonacute findings are delineated above. ACT 112: Negative or not required by law. Electronically signed by: Forest De Los Santos M.D. 07/14/2021 11:37 AM
[2021-07-15] MEDS: ACETAMINOPHEN 325 MG TAB PO PRN ×2 (06:04→17:48)
[2021-07-15 07:10] LABS: Eosinophils # (auto) 0.02 K/uL (0-0.5); Eosinophils % (auto) 0.5 %; Hematocrit (blood only) 33.2 % (37-47); Hemoglobin 10.7 g/dL (12.0-16.0); Lymphocytes # (auto) 0.68 K/uL (1.2-3.4); Mean Corpuscular Hemoglobin 31.1 pg (25-34); Mean Corpuscular Hgb Conc 32.2 g/dL (32-36); Mean Corpuscular Volume 96.5 fL (80-100); Mean Platelet Volume 11.1 fL (7.4-10.4); Monocytes # (auto) 0.26 K/uL (0.11-0.59); Monocytes % (auto) 6.5 %; Neutrophils # (auto) 3.05 K/uL (1.4-6.5); Platelet Count 113 K/uL (130-400); RDW Coefficient of Variation 12.9 % (11.5-14.5); RDW Standard Deviation 45.5 fL (36.4-46.3); Red Blood Count 3.44 M/uL (4.2-5.4); White Blood Count 4.01 K/uL (4.8-10.8)
[2021-07-15 07:45] LABS: BUN Creatinine Ratio 20.3 (10-20); Calcium 8.1 mg/dl (8.5-10.1); Creatinine Clr Calc Pharmacy 67.8 ml/min; Est GFR (African American) 96.6 ml/min; Est GFR (Non-African American) 83.4 ml/min; Magnesium 1.6 mg/dl (1.8-2.4); Potassium 3.4 mmol/L (3.5-5.1)
[2021-07-15] MEDS: cefTRIAXone SODIUM 2,000 MG in DEXTROSE 5% 50 ML IV SCH (09:53)
[2021-07-15] MEDS: DOXYCYCLINE HYCLATE 100 MG in DEXTROSE 5% 100 ML IV SCH (09:53)
[2021-07-15] MEDS: MAGNESIUM SULFATE / D5W 1 GM/100 ML BAG IV SCH (09:53)
[2021-07-15] MEDS: INSULIN ASPART PER UNIT SC SCH ×4 (09:54→22:49)
[2021-07-15] MEDS: ENOXAPARIN INJ 40 MG/0.4 ML SYR SQ SCH (09:54)
[2021-07-15] MEDS: METOPROLOL SUCC 50MG EXT REL TAB PO SCH (09:54)
[2021-07-15] MEDS: POTASSIUM CHLORIDE CRTAB 20 MEQ TABCR PO SCH ×2 (09:55→22:49)
--- NOTE | 2021-07-15 11:59 | Hospitalist Progress Note ---
Date of Service July 15, 2021 Assessment & Plan (1) Sepsis: Plan: 2nd to LLL Pneumonia and Klebsiella UTI. Rocephin adequate for UTI. Rocephin/doxy for LLL pneumonia should be adequate coverage for lungs. Despite such she remains febrile, feeling poorly, and with ongoing lab abnormalities (leukopenia, thrombocytopenia, etc). COVID testing x 2 negative including [employer] resp panel (RSV, flu, etc). Blood cultures x 2 thus far negative. Sent legionella urine ag today. MRSA LEAD NITRATE PROCESSOR swab negative. Given persistent fevers despite rocephin/doxy will change to levaquin IV. Levaquin will provide some gram negative coverage including pseudomonas. It is also the preferred drug for legionella. Many of her labs (procal negative, low platelets, low wbc's with lyphopenia, high AST, high CPK, etc), symptoms, etc are very much typical for viruses, however. Tick borne disease can look similar - especially anaplasmosis. Smear for anaplasmosis negative, will send DNA test in am to be complete - but I am not suspecting tick-borne disease. Just to be safe - even despite the negative COVID testing - will continue to keep her in isolation as PUI. I have seen several cases of COVID where the individual tested negative 2-3x's before testing positive. If fevers resolve, labs quickly normalize, patient feels better tomorrow, etc - consider removing isolation then. If patient fails to improve, if fevers persist, if CBC abnormalities persist - consider COVID retesting. (2) Pneumonia: Plan: LLL. Clinically no better today. CT chest 07/14 -- LLL pneumonia only; remainder of L lung and nearly all of R lung are free of pneumonia. No PEs. Repeat CXR today with LLL pneumonia and now minimal infiltrates right base - c/w my exam. Likely community-acquired pneumonia given lobar appearance. I cannot exclude an underlying viral process - see #1 above. Day #3 IV abx - changing rocephin/doxy to IV levaqin as in #1 above. Follow blood cx's. (3) UTI (urinary tract infection): Plan: 2nd klebsiella. Day #3 of IV abx. Prior rocephin was adequate; IV levaquin will be adequate as well. CT abd/pelvis WITHOUT renal stones, etc. (4) Rhabdomyolysis: Plan: Patient with elevated CK of 1495 at admission. CPK improved nicely with fluids first 2 days of admission. Suspect it is 2nd to her infectious process rather than her syncopal episode. Rhabdo is more common with viral pathogens -- see above re: keeping patient as COVID PUI. (5) Syncope: Plan: Patient reports several syncopal events following her influenza vaccination in late May. Then had brief syncopal episode on day of presentation. She has an AICD in place, denies discharge at any time. Interrogation of device requested. 3 nights ago did have a 1-minute episode of tachycardia to about 150 - device did not fire. It is uncertain if this was a flutter vs VT. Waiting on interrogation. Suspect her syncope was due to dehydration & her concurrent illness rather than dysrhythmia but [id number] await interrogation. (6) Hypercholesterolemia: Plan: Chronic Hold Atorvastatin due to #4 (7) Hypertension: Plan: Due to low-normal BPs and sepsis -- Cont to Hold metoprolol, Hold Entresto, Hold lasix (8) Controlled type 2 diabetes mellitus with microalbuminuria: Plan: all previous a1c's <7% BSGs here nearly all <150 (9) Leukopenia: Plan: worrisome for either bacterial sepsis or viral process tick-borne disease can cause as well but little chance for exposure per patient procal negative - this would argue more so for viral pathogen but doesn't exclude bacterial pathogens repeat CBC w/ diff in am see discussion above (10) Thrombocytopenia: Plan: 2nd to infectious process as discussed above cbc in am (11) Status post implantation of automatic cardioverter/defibrillator (AICD): Plan: interrogation requested pacing most times on tele (12) Cardiomyopathy: Plan: previous EF in the 40s now improved to 55-60% EF this admission remains volume contracted on exam cont to hold lasix and entresto due to low BPs (13) Hypomagnesemia: Plan: replaced but still low repeat level am Plan: DVT proph - lovenox daughter extensively updated by phone 07.13 left voicemail message for daughter on 07.14 again extensively updated daughter today by phone PT/OT christina medinaqeusted Admission and Anticipated Discharge Date Admission Date: July 12, 2021 Subjective continues to feel very poorly body aches continue fatigue persists appetite is still very poor minimal cough mild amount of CHEUNG w/ walking but no orthopnea or dyspnea at rest had fevers/chills much of the night tele overnight - pacing Review of Systems Review of Systems: gen - fevers, chills, weakness, fatigue, appetite loss HEENT - still no loss of taste or smell pulm - no sputum CV - no chest pain or chest tightness GI - no Nausea/emesis/pain (minimal bloating only) Physical Exam Physical Exam: gen - continues to look sick, dehydrated, weak psych - a/o x 3 skin - turgor now normal; no rash HEENT - MM still slightly dry but more moist than yesterday neck - no JVD heart - RRR, s1 s2, no murmur lungs - Left basilar rales - about 1/[address] up back - unchanged; minimal rales right base; no wheeze; no increased work of breathing abd - soft NT BS+; scantly distended ext - no edema, pulses 2+ b/l neuro - mild tremor Results & Data Results & [facility] ([facility]) Vital Signs (Past 12 Hours) Vital Signs Temp Pulse Resp BP Pulse Ox 07/15/21 07:46 37.2 C 94 H 14 106/61 91 07/15/21 06:05 38.4 C H 07/15/21 03:26 37.7 C H 92 H 20 132/71 94 Laboratory Results Laboratory Results - last 24 hr 07/14/21 07/14/21 07/15/21 17:10 20:29 06:37 WBC RBC Hgb Hct MCV MCH MCHC RDW Std Deviation RDW Coeff of Shaka Plt Count MPV Immature Gran % (Auto) Neut % (Auto) Lymph % (Auto) Alfalfa % (Auto) Eos % (Auto) Baso % (Auto) Neut # (Auto) Lymph # (Auto) Alfalfa # (Auto) Eos # (Auto) Baso # (Auto) Immature Gran # (Auto) Sodium 141 Potassium 3.4 L Chloride 110 H Carbon Dioxide 23 Anion Gap 8.0 BUN 13 Creatinine 0.62 Est Cr Clr Drug Dosing 67.8 Est GFR ( Amer) 96.6 Est GFR (Non-Af Amer) 83.4 BUN/Creatinine Ratio 20.3 H Glucose 107 H POC Glucose 128 H 130 H Calcium 8.1 L Magnesium 1.6 L AST 41 H Nasal Screen MRSA (PCR) Anaplasma Smear 07/15/21 07/15/21 07/15/21 06:37 08:14 10:30 WBC 4.01 L RBC 3.44 L Hgb 10.7 L Hct 33.2 L MCV 96.5 MCH 31.1 MCHC 32.2 RDW Std Deviation 45.5 RDW Coeff of Shaka 12.9 Plt Count 113 L MPV 11.1 H Immature Gran % (Auto) 0.0 Neut % (Auto) 76.0 Lymph % (Auto) 17.0 Alfalfa % (Auto) 6.5 Eos % (Auto) 0.5 Baso % (Auto) 0.0 Neut # (Auto) 3.05 Lymph # (Auto) 0.68 L Alfalfa # (Auto) 0.26 Eos # (Auto) 0.02 Baso # (Auto) 0.00 Immature Gran # (Auto) 0.00 Sodium Potassium Chloride Carbon Dioxide Anion Gap BUN Creatinine Est Cr Clr Drug Dosing Est GFR ( Amer) Est GFR (Non-Af Amer) BUN/Creatinine Ratio Glucose POC Glucose 106 H Calcium Magnesium AST Nasal Screen MRSA (PCR) Negative Anaplasma Smear See Comment Diagnostic Findings urine cx with klebsiella, pansensitive blood cx's x 24 hours no growth PG Care Time/CCT Total # of Minutes Spent Total Time Spent with Patient: Total time spent is greater than 50% in coordination of care (as documented) at patient's floor/unit and/or counseling patient: Coding Level of Care Code 49743 Subseq Hosp Care Lvl 3 Diagnoses Sepsis A41.9 Pneumonia J18.9 UTI (urinary tract infection) N39.0 Rhabdomyolysis M62.82 Syncope R55 Hypercholesterolemia E78.00 Hypertension I10 Controlled type 2 diabetes mellitus with microalbuminuria E11.29; R80.9 Leukopenia D72.819 Thrombocytopenia D69.6 Status post implantation of automatic cardioverter/defibrillator (AICD) Z95.810 Cardiomyopathy I42.9 Hypomagnesemia E83.42
--- NOTE | 2021-07-15 13:13 | XRay Report ---
XR chest 1V portable HISTORY: b/l rales, assess for new R sided infiltrates COMPARISON: Chest 07/13/2021. Chest CTA 07/14/2021. FINDINGS: Moderate to large hiatus hernia is again noted. There are are low lung volumes. No pneumoth orax. No pleural effusions. The heart remains mildly enlarged. Is left-sided pacemaker/defibrillator. Bibasilar densities, left greater than right persists. The upper lung zones remain clear. No evidenc e for pulmonary edema. IMPRESSION: 1. No change in the low lung volumes and bibasilar densities, left greater than right. This could rep resent atelectasis or pneumonia. 2. Stable cardiomegaly. 3. Moderate to large hiatus hernia, unchanged. ACT 112: Negative or not required by law. Electronically signed by: Bashir Wilburn M.D. 07/15/2021 1:12 PM
[2021-07-15] MEDS ORDERED: CEFEPIME 2,000 MG in SYRINGE 0 ML IV SCH (18:30)
[2021-07-15] MEDS: levoFLOXacin/D5W 750 MG/150 ML BAG IV SCH (22:48)
[2021-07-15] MEDS: ADVANCED PROBIOTIC 1250 MG CAPSULE PO SCH (22:48)
[2021-07-16 08:19] LABS: Hematocrit (blood only) 32.1 % (37-47); Hemoglobin 10.5 g/dL (12.0-16.0); Mean Corpuscular Hemoglobin 31.3 pg (25-34); Mean Corpuscular Hgb Conc 32.7 g/dL (32-36); Mean Corpuscular Volume 95.8 fL (80-100); Mean Platelet Volume 10.9 fL (7.4-10.4); Platelet Count 133 K/uL (130-400); RDW Coefficient of Variation 12.8 % (11.5-14.5); RDW Standard Deviation 44.9 fL (36.4-46.3); Red Blood Count 3.35 M/uL (4.2-5.4); White Blood Count 5.51 K/uL (4.8-10.8)
[2021-07-16 08:47] LABS: C Reactive Protein 16.5 mg/dl (0-0.29); Calcium 8.6 mg/dl (8.5-10.1); Est GFR (African American) 99.9 ml/min; Est GFR (Non-African American) 86.2 ml/min; Potassium 3.9 mmol/L (3.5-5.1)
[2021-07-16 08:49] LABS: Albumin Globulin Ratio 0.5 (0.9-2); Globulin 4.3 gm/dl (2.5-4.0); Total Protein 6.3 gm/dl (6.4-8.2)
[2021-07-16 08:57] LABS: Basophils # (auto) 0.01 K/uL (0-0.2); Basophils % (auto) 0.2 %; Eosinophils # (auto) 0.09 K/uL (0-0.5); Eosinophils % (auto) 1.6 %; Immature Granulocytes # (auto) 0.01 K/uL (0.00-0.02); Immature Granulocytes % (auto) 0.2 %; Lymphocytes % (auto) 16.3 %; Monocytes # (auto) 0.32 K/uL (0.11-0.59); Monocytes % (auto) 5.8 %; Neutrophils # (auto) 4.18 K/uL (1.4-6.5); Neutrophils % (auto) 75.9 %
[2021-07-16 09:00] LABS: Bilirubin,Total 0.3 mg/dl (0.2-1)
[2021-07-16] MEDS: METOPROLOL SUCC 50MG EXT REL TAB PO SCH (09:54)
[2021-07-16] MEDS: INSULIN ASPART PER UNIT SC SCH ×4 (09:54→21:12)
[2021-07-16] MEDS: ADVANCED PROBIOTIC 1250 MG CAPSULE PO SCH (09:55)
[2021-07-16] MEDS: ENOXAPARIN INJ 40 MG/0.4 ML SYR SQ SCH (09:56)
[2021-07-16] MEDS: POTASSIUM CHLORIDE CRTAB 20 MEQ TABCR PO SCH ×2 (09:56→21:13)
--- NOTE | 2021-07-16 16:26 | Hospitalist Progress Note ---
Date of Service July 16, 2021 Assessment & Plan (1) Sepsis: Plan: 2nd to LLL Pneumonia and Klebsiella UTI. COVID testing x 2 negative including [employer] resp panel (RSV, flu, etc). Blood cultures x 2 thus far negative. MRSA swab negative. Smear for anaplasmosis negative; PCR pending. - Urine Legionella pending. - Continue levofloxacin - Will get [employer] DRIVER eval. RN notes she chokes on pills, and pneumonia notable in LLL with some consolidation in RLL on CTA chest as well. (2) Pneumonia: Plan: LLL. (3) UTI (urinary tract infection): Plan: 2nd Klebsiella. CT abd/pelvis WITHOUT renal stones, etc. - Abx for PNA will cover. (4) Rhabdomyolysis: Plan: Patient with elevated CK of 1495 at admission. CPK improved nicely with fluids first 2 days of admission. (5) Syncope: Plan: Patient reports several syncopal events following her influenza vaccination in late May. Then had brief syncopal episode on day of presentation. She has an AICD in place, denies discharge at any time. - On 07/13, had a 1-minute episode of tachycardia to about 150 - device did not fire. It is uncertain if this was a flutter vs VT. - Interrogation of device requested. (6) Hypercholesterolemia: Plan: Chronic. - Holding atorvastatin due to mild rhabdo. (7) Hypertension: Plan: BP is only 115/70 today. - Continue to hold metoprolol, Entresto, and Lasix (8) Controlled type 2 diabetes mellitus with microalbuminuria: Plan: Last A1c was 6.8% in 09/2020. All previous a1c's <7%. BSGs here nearly all <150. - Sliding scale insulin (9) Leukopenia: Plan: Worrisome for either bacterial sepsis or viral process. - Monitor -> Resolving (10) Thrombocytopenia: Plan: 2nd to infectious process as discussed above. - Also resolving (11) Cardiomyopathy: Plan: Previous EF in the 40s; now improved to 55-60% EF this admission. Remains volume contracted on exam. 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 - Lovenox 40 mg SQ daily Admission and Anticipated Discharge Date Admission Date: July 12, 2021 Subjective Feeling some better today. She denies any trouble swallowing, but does feel that pills sometimes get stuck. She wants to get out of the hospital. Reports no fevers/chills, chest pain, shortness of breath, abdominal pain, nausea, or vomiting. Physical Exam Constitutional: WD/WN, vitals as above Eyes: EOM intact bilaterally; no conjunctival abnormality ENMT: external ear and nose normal, oropharynx normal Neck: trachea midline, no thyromegaly normal visual inspection Respiratory: normal respiratory effort, lungs clear to auscultation no respiratory distress Cardiovascular: RRR, no murmur, no edema Gastrointestinal (Abdomen): Inspection/Auscultation: abdomen normal to inspection; abdomen not distended Musculoskeletal: no cyanosis or clubbing, extremities motor strength 5/5 Skin: no rashes, warm and dry Neurologic: moves all extremities and awake Psychiatric: Orientation: alert, oriented to person and cooperative Results & Data Results & Data ([facility]) Vital Signs (Past 12 Hours) Vital Signs Temp Pulse Pulse Resp BP Pulse Ox 07/16/21 16:22 71 07/16/21 14:19 93 07/16/21 08:09 36.8 C 79 20 113/69 93 07/16/21 08:00 78 PG Care Time/CCT Total # of Minutes Spent Total Time Spent with Patient: Total time spent is greater than 50% in coordination of care (as documented) at patient's floor/unit and/or counseling patient: Coding Level of Care Code 95901 Subseq Hosp Care Lvl 3 Diagnoses Sepsis A41.9 Pneumonia J18.9 UTI (urinary tract infection) N39.0 Rhabdomyolysis M62.82 Syncope R55 Hypercholesterolemia E78.00 Hypertension I10 Controlled type 2 diabetes mellitus with microalbuminuria E11.29; R80.9 Leukopenia D72.819 Thrombocytopenia D69.6 Cardiomyopathy I42.9 DVT prophylaxis Z29.9
[2021-07-16] MEDS: levoFLOXacin/D5W 750 MG/150 ML BAG IV SCH (17:41)
[2021-07-17] MEDS ORDERED: MELATONIN 3 MG TAB PO PRN (03:00)
[2021-07-17] MEDS ORDERED: ZOLPIDEM TARTRATE 5 MG TAB PO STA (03:18)
[2021-07-17 06:34] LABS: Hematocrit (blood only) 33.5 % (37-47); Hemoglobin 10.9 g/dL (12.0-16.0); Mean Corpuscular Hemoglobin 31.1 pg (25-34); Mean Corpuscular Hgb Conc 32.5 g/dL (32-36); Mean Corpuscular Volume 95.7 fL (80-100); Mean Platelet Volume 10.8 fL (7.4-10.4); Platelet Count 184 K/uL (130-400); RDW Coefficient of Variation 12.7 % (11.5-14.5); RDW Standard Deviation 44.3 fL (36.4-46.3); White Blood Count 3.94 K/uL (4.8-10.8)
[2021-07-17 07:07] LABS: BUN Creatinine Ratio 27.6 (10-20); Calcium 8.7 mg/dl (8.5-10.1); Creatinine Clr Calc Pharmacy 78.9 ml/min; Est GFR (African American) 101.8 ml/min; Est GFR (Non-African American) 87.8 ml/min; Magnesium 1.9 mg/dl (1.8-2.4); Potassium 4.1 mmol/L (3.5-5.1)
[2021-07-17] MEDS: INSULIN ASPART PER UNIT SC SCH ×4 (08:36→22:33)
[2021-07-17] MEDS: POTASSIUM CHLORIDE CRTAB 20 MEQ TABCR PO SCH ×2 (08:37→20:52)
[2021-07-17] MEDS: ADVANCED PROBIOTIC 1250 MG CAPSULE PO SCH (08:37)
[2021-07-17] MEDS: METOPROLOL SUCC 50MG EXT REL TAB PO SCH (08:37)
[2021-07-17] MEDS: ENOXAPARIN INJ 40 MG/0.4 ML SYR SQ SCH (08:38)
--- NOTE | 2021-07-17 13:29 | Hospitalist Progress Note ---
Date of Service July 17, 2021 Assessment & Plan (1) Sepsis: Plan: 2nd to LLL Pneumonia and Klebsiella UTI. COVID testing x 2 negative including [employer]Fire resp panel (RSV, flu, etc). Blood cultures x 2 thus far negative. MRSA swab negative. Smear for anaplasmosis negative; PCR pending. - Urine Legionella pending. - Continue levofloxacin - AUTOMATION MANAGER eval on 07/17. * Slippery diet * Add extra sauce/gravy/condiments to food * Alternate solids & liquids * Alert and upright for meals * Meds in a carrier * Small bites, small sips, slow rate of eating - Will get video swallow tomorrow. (2) Pneumonia: Plan: LLL. (3) UTI (urinary tract infection): Plan: 2nd Klebsiella. CT abd/pelvis WITHOUT renal stones, etc. - Abx for PNA will cover. (4) Rhabdomyolysis: Plan: Patient with elevated CK of 1495 at admission. CPK improved nicely with fluids first 2 days of admission. (5) Syncope: Plan: Patient reports several syncopal events following her influenza vaccination in late May. Then had brief syncopal episode on day of presentation. She has an AICD in place, denies discharge at any time. - On 07/13, had a 1-minute episode of tachycardia to about 150 - device did not fire. It is uncertain if this was a flutter vs VT. - Interrogation of device requested. (6) Hypercholesterolemia: Plan: Chronic. - Holding atorvastatin due to mild rhabdo. (7) Hypertension: Plan: BP is only 95/70 today. - Continue to hold metoprolol, Entresto, and Lasix (8) Controlled type 2 diabetes mellitus with microalbuminuria: Plan: Last A1c was 6.8% in 09/2020. All previous a1c's <7%. BSGs here nearly all <150. - Sliding scale insulin (9) Leukopenia: Plan: Worrisome for either bacterial sepsis or viral process. - Monitor -> Resolving (10) Thrombocytopenia: Plan: 2nd to infectious process as discussed above. - Also resolving (11) Cardiomyopathy: Plan: Previous EF in the 40s; now improved to 55-60% EF this admission. Remains volume contracted on exam. 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 - Lovenox 40 mg SQ daily Admission and Anticipated Discharge Date Admission Date: July 12, 2021 Subjective Very tired today. States that several times over. More confused today as well due to being up all night with her roommate's agitation. Reports no fevers/chills, chest pain, shortness of breath, abdominal pain, nausea, or vomiting. Physical Exam Constitutional: WD/WN, vitals as above Eyes: EOM intact bilaterally; no conjunctival abnormality ENMT: external ear and nose normal, oropharynx normal Neck: trachea midline, no thyromegaly normal visual inspection Respiratory: normal respiratory effort, lungs clear to auscultation no respiratory distress Cardiovascular: RRR, no murmur, no edema Gastrointestinal (Abdomen): Inspection/Auscultation: abdomen normal to inspection; abdomen not distended Musculoskeletal: no cyanosis or clubbing, extremities motor strength 5/5 Skin: no rashes, warm and dry Neurologic: moves all extremities and awake Psychiatric: Orientation: alert, oriented to person and cooperative Results & Data Results & Data ([facility]) Vital Signs (Past 12 Hours) Vital Signs Temp Pulse Pulse Resp BP Pulse Ox 07/17/21 11:47 36.4 C L 80 20 96/67 L 90 07/17/21 08:30 71 07/17/21 05:11 72 07/17/21 04:14 36.6 C 88 18 139/80 94 PG Care Time/CCT Total # of Minutes Spent Total Time Spent with Patient: Total time spent is greater than 50% in coordination of care (as documented) at patient's floor/unit and/or counseling patient: Coding Level of Care Code 36208 Subseq Hosp Care Lvl 2 Diagnoses Sepsis A41.9 Pneumonia J18.9 UTI (urinary tract infection) N39.0 Rhabdomyolysis M62.82 Syncope R55 Hypercholesterolemia E78.00 Hypertension I10 Controlled type 2 diabetes mellitus with microalbuminuria E11.29; R80.9 Leukopenia D72.819 Thrombocytopenia D69.6 Cardiomyopathy I42.9 DVT prophylaxis Z29.9
[2021-07-17] MEDS: levoFLOXacin/D5W 750 MG/150 ML BAG IV SCH (18:28)
[2021-07-18] MEDS: ACETAMINOPHEN 325 MG TAB PO PRN ×2 (05:22→08:40)
[2021-07-18 07:11] LABS: Hematocrit (blood only) 34.2 % (37-47); Hemoglobin 11.4 g/dL (12.0-16.0); Mean Corpuscular Hemoglobin 31.5 pg (25-34); Mean Corpuscular Hgb Conc 33.3 g/dL (32-36); Mean Corpuscular Volume 94.5 fL (80-100); Mean Platelet Volume 10.5 fL (7.4-10.4); Platelet Count 225 K/uL (130-400); RDW Coefficient of Variation 12.6 % (11.5-14.5); RDW Standard Deviation 44.1 fL (36.4-46.3); Red Blood Count 3.62 M/uL (4.2-5.4)
[2021-07-18 07:46] LABS: BUN Creatinine Ratio 24.3 (10-20); Calcium 9.3 mg/dl (8.5-10.1); Creatinine Clr Calc Pharmacy 66.7 ml/min; Est GFR (African American) 96.1 ml/min; Est GFR (Non-African American) 82.9 ml/min; Magnesium 1.7 mg/dl (1.8-2.4); Potassium 4.7 mmol/L (3.5-5.1)
[2021-07-18] MEDS: POTASSIUM CHLORIDE CRTAB 20 MEQ TABCR PO SCH (08:22)
[2021-07-18] MEDS: ADVANCED PROBIOTIC 1250 MG CAPSULE PO SCH (08:23)
[2021-07-18] MEDS: METOPROLOL SUCC 50MG EXT REL TAB PO SCH (08:23)
[2021-07-18] MEDS: ENOXAPARIN INJ 40 MG/0.4 ML SYR SQ SCH (08:24)
[2021-07-18] MEDS: INSULIN ASPART PER UNIT SC SCH ×2 (08:31→12:00)
--- NOTE | 2021-07-18 10:09 | Fluoroscopy Report ---
MODIFIED BARIUM SWALLOW CLINICAL HISTORY: assess for silent aspiration COMPARISON STUDY: None. FLUOROSCOPY TIME: 2.3 minutes. TECHNIQUE: A modified barium swallow was performed in conjunction with Speech Pathology. The patient ingested varying consistencies of barium containing material. Video fluoroscopy was performed. FINDINGS: No tracheal aspiration was identified with thin liquids, nectar thick liquids, pudding or c rackers with paste. Epiglottic inversion was normal. Laryngeal elevation was normal. Mild prominence of the cricopharyngeus was noted. Please note that the esophagus was not assessed on this examination . IMPRESSION: 1. No tracheal aspiration identified. 2. Full recommendations by speech pathology to follow. ACT 112: Negative or not required by law. Electronically signed by: Ken Sahu M.D. 07/18/2021 10:07 AM
[2021-07-18] MEDS ORDERED: levoFLOXacin 750 MG TAB PO SCH (15:00)
--- NOTE | 2021-07-18 17:50 | Discharge Summary ---
Date of Service July 18, 2021 Principal Diagnosis Community-acquired pneumonia Syncope Discharge Exam Constitutional WD/WN, vitals as above Eyes EOM intact bilaterally; no conjunctival abnormality ENMT external ear and nose normal, oropharynx normal Neck trachea midline, no thyromegaly normal visual inspection Respiratory normal respiratory effort, lungs clear to auscultation no respiratory distress Cardiovascular RRR, no murmur, no edema Gastrointestinal (Abdomen) Inspection/Auscultation: abdomen normal to inspection; abdomen not distended Musculoskeletal no cyanosis or clubbing, extremities motor strength 5/5 Skin no rashes, warm and dry Neurologic moves all extremities and awake Psychiatric Orientation: alert, oriented to person and cooperative Discharge Data Allergies Allergy/AdvReac Type Severity Reaction Status Date / Time house dust mite Allergy Unknown Unknown Verified 07/15/21 18:40 Sulfa (Sulfonamide Allergy Unknown Unknown Verified 07/15/21 18:40 Antibiotics) Ordered Studies 07/14/21 10:08 CT abd pelvis wo con Routine CT angio chest PE protocol Routine 07/18/21 09:30 FL video swallow Routine Hospital Course (1) Sepsis: 2nd to LLL Pneumonia and Klebsiella UTI. COVID testing x 2 negative including [employer] resp panel (RSV, flu, etc). Blood cultures x 2 thus far negative. MRSA swab negative. Smear for anaplasmosis negative; PCR pending. - Urine Legionella pending. - Continue levofloxacin - [facility] eval on 07/17. * Slippery diet * Add extra sauce/gravy/condiments to food * Alternate solids & liquids * Alert and upright for meals * Meds in a carrier * Small bites, small sips, slow rate of eating - Video swallow on 07/18/2021 showed no overt aspiration. (2) Pneumonia: LLL. (3) UTI (urinary tract infection): 2nd Klebsiella. CT abd/pelvis WITHOUT renal stones, etc. - Abx for PNA will cover. (4) Rhabdomyolysis: Patient with elevated CK of 1495 at admission. CPK improved nicely with fluids first 2 days of admission. (5) Syncope: Patient reports several syncopal events following her influenza vaccination in late May. Then had brief syncopal episode on day of presentation. She has an AICD in place, denies discharge at any time. - On 07/13, had a 1-minute episode of tachycardia to about 150 - device did not fire. It is uncertain if this was a flutter vs VT. - Interrogation of device requested. I think due to initial Covid precautions, this was not done. Should follow-up outpatient. (6) Hypercholesterolemia: Chronic. - Held atorvastatin due to mild rhabdo -> Return to use on discharge. (7) Hypertension: BP was 135/70 today. - Continue metoprolol XL at lower dose (100 mg) - Hold Entresto; can restart at lower dose as outpatient. - Continue Lasix (8) Controlled type 2 diabetes mellitus with microalbuminuria: Last A1c was 6.8% in 09/2020. All previous a1c's <7%. BSGs here nearly all <150. - Sliding scale insulin (9) Leukopenia: Worrisome for either bacterial sepsis or viral process. - Monitor -> Resolving (10) Thrombocytopenia: 2nd to infectious process as discussed above. - Also resolving (11) Cardiomyopathy: Previous EF in the 40s; now improved to 55-60% EF this admission. - Continue Lasix - Hold Entresto (12) [place]: [place] [facility] [place] - Lovenox 40 mg SQ daily Total Time Total Time Spent Total Time Spent (In Minutes): 35 Discharge Plan Discharge Items Patient Disposition: Transfer Inpatient Rehab Fac Reason For Visit: SYNCOPE, ELEVATED CK Discharge Diagnosis: Community-acquired pneumonia Syncope Activity: Resume your previous activity Non-emergency contact: Primary Care Provider Call non-emergency contact if: your symptoms worsen Follow-up/Referrals: Conner Benavides MD [Primary Care Provider] - Diet: Carb Consistent or DM2 and Heart Healthy Addtl Attending Provider Instructions: Ms. Salgado, You were admitted to the hospital with a loss of consciousness. This was probably from low blood pressure that was partly due to medications and partly from a pneumonia that you had. You also had low oxygen level which were likely related to the infection as well. You are off oxygen now and feeling and breathing better. You will need to be on the antibiotic for 3 more days to finish your course. (First dose tonight with dinner.) We did stop your Entresto as this has a well-known side effect of lowering blood pressure. This could cautiously be restarted, but maybe at the lower dose before going back to your home dose. Likewise, we lowered your beta kim (metoprolol) to avoid low blood pressure. While here, you did have a swallow evaluation as the nurse felt you were having some trouble with taking pills. The speech pathologist recommended: * Alternating solids and liquids * Being fully alert and upright for meals * Giving medications in a carrier (applesauce or pudding) * Small bites, slow eating, small sips Pending Studies at Discharge: No Stand-Alone Forms: My [facility] Skilled Items Patient informed of condition?: Yes DNR: No Discharge Level of Care: Acute rehab Communicable Disease: No Discharge Prognosis: Improving Lines: None Urinary Catheter: No Medications and DC Order Prescriptions: New levofloxacin 750 mg tablet 750 mg PO DAILY Qty: 3 RF: 0 Continued (DME) blood-glucose meter [HaltonTouch Verio Flex Start] Kit See Rx Instructions .ROUTE .MEDSUPPLY Qty: 1 RF: 0 (DME) lancets [OneTouch Delica Lancets] 33 gauge misc See Rx Instructions .ROUTE .MEDSUPPLY Qty: 200 RF: 3 (DME) OneTouch Verio test strips Strip See Rx Instructions .ROUTE .MEDSUPPLY Qty: 200 RF: 3 atorvastatin 20 mg tablet 20 mg PO DAILY Qty: 90 RF: 3 furosemide 80 mg tablet 40 mg PO Q OTHER DAY Qty: 45 RF: 3 metformin 500 mg tablet 500 mg PO BID Qty: 180 RF: 3 potassium chloride 10 mEq tablet extended release 10 meq PO .COMPLEX Qty: 90 RF: 3 (DME) Rollator Walker Qty: 1 RF: 0 acetaminophen [Mapap (acetaminophen)] 325 mg Tablet 650 mg PO Q4H PRN (Reason: pain) Qty: 30 RF: 0 Changed metoprolol succinate 200 mg tablet extended release 24 hr 100 mg PO QAM Qty: 90 RF: 3 Discontinued Entresto 97-103 mg tablet 1 tab PO BID Qty: 180 RF: 3 Discharge Orders: Discharge Order (Routine); Ordered 07/18/21 Ordered By: Diogenes Braxton Admission Data Admit Date/Time: 07/12/21 16:40 Attending Provider: Diogenes Braxton Admit Provider: Miriam Rosario Primary Care Provider: Conner Benavides Other Providers: [facility] ; [facility] Other Interventions: Discharge Summary Assessment (RN) Last Done: 07/18/21 14:49 Coding Level of Care Code D/C DAY MANAGEMENT >30 MINS Diagnoses Sepsis A41.9 Pneumonia J18.9 UTI (urinary tract infection) N39.0 Rhabdomyolysis M62.82 Syncope R55 Hypercholesterolemia E78.00 Hypertension I10 Controlled type 2 diabetes mellitus with microalbuminuria E11.29; R80.9 Leukopenia D72.819 Thrombocytopenia D69.6 Cardiomyopathy I42.9 DVT prophylaxis Z29.9
== END 2021-07-18 16:44 | DRG 871 ==
LOC: ED 11:40 → 2N 16:40 → SUATTDRO 16:40 → 2N 18:50